=== PATIENT | male | born 1945 | race Caucasian/White ===

== ENCOUNTER → 2019-03-14 | Emergency (ER) | payer MEDICARE, OTHER ==
[~2019-03-14] VITALS: Ht 165.1 cm; Wt 92.1 kg
--- OUTSIDE RECORDS SUMMARY | 2019-03-14 13:48 | XMS REPORT | Referral Summary ---
Author Author [facility] Organization [facility] Address Unknown Phone Unavailable Care Team Providers Care Toaster Operator Name Role Phone Carolina Villalobos PCP Encounter VC Date(s): 05/22/18 - 05/22/18 [facility] [id number] [place] [id number] Encounter Diagnosis Atherosclerotic peripheral vascular disease (Discharge Diagnosis) - 05/22/18 Benign essential hypertension (disorder) (Discharge Diagnosis) - 05/22/18 Bradycardia (Discharge Diagnosis) - 05/22/18 Impaired fasting glucose (Discharge Diagnosis) - 05/22/18 Chronic kidney disease (CKD), stage II (mild) (Discharge Diagnosis) - 05/22/18 Elevated cholesterol with elevated triglycerides (Discharge Diagnosis) - 05/22/18 Discharge Disposition: 01-Home or Self Care Attending Physician: Clara Sotomayor Admitting Physician: Clara Sotomayor Vital Signs Most recent to 1 oldest [Reference Range]: Peripheral Pulse 59 bpm Rate [60-100 bpm] *LOW* (05/22/18 1:33 PM) Blood Pressure 140/70 mmHg [90-140/60-90 mmHg] (05/22/18 1:33 PM) SpO2 97 % (05/22/18 1:33 PM) Problem List Condition Effective Dates Status Health Status Informant Kidney 09/18/10 Active dysfunction(Confirme d) Allergic Active rhinitis(Confirmed) Unspecified Active arthropathy, involving lower leg(Confirmed) Benign essential Active hypertension (disorder)(Confirmed ) Bicipital tendonitis Active of left shoulder(Confirmed) Bradycardia(Confirme 09/18/09 Active d) Abnormal Active cardiovascular stress test(Confirmed) Carotid artery Active stenosis(Confirmed) 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/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) Cervical disc Active disease(Confirmed) Chronic kidney Active disease (CKD), stage II (mild)(Confirmed) Coronary Active arteriosclerosis (disorder)(Confirmed ) Coronary Active atherosclerosis of [place] coronary artery(Confirmed) Coronary artery Active disease(Confirmed) Degenerative disk 09/18/12 Active disease, C3-4 on down(Confirmed) Dermatitis(Confirmed Active ) ID(Confirmed) Active Foraminal narrowing 09/18/12 Active C4-5, C5-6, C6-7(Confirmed) 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) Disorder of kidney Active and/or ureter (disorder)(Confirmed ) Dyslipidemia(Confirm Active ed) Edema(Confirmed) Active Right hip Active pain(Confirmed) Hyperlipidemia(Confi Active rmed) Anterior 09/18/12 Active osteophytes(Confirme d) Hypotestosteronism(C Active onfirmed) Impaired fasting Active glucose(Confirmed) Impaired fasting Active glucose(Confirmed) Lumbar Active pain(Confirmed) Elevated cholesterol Active with elevated triglycerides(Confir med) Leg 09/18/08 Active numbness(Confirmed) Obesity Active (disorder)(Confirmed ) Osteoarthritis(Confi Active rmed) Atherosclerotic Active peripheral vascular disease(Confirmed) Peripheral vascular Active disease(Confirmed) Colonic Active polyps(Confirmed) Syncope(Confirmed) 09/18/10 Active Abnormal stress Active test(Confirmed) Tissue perfusion Active alteration(Confirmed )1 1Problem added automatically by system based on initiation of Tissue Perfusion Cerebral Plan of Care Allergies, Adverse Reactions, Alerts Substance Reaction Severity Status hydrochlorothiazide Active Medications amLODIPine 10 mg oral tablet See Instructions, TAKE 1 TABLET EVERY DAY, # 90 tabs, 0 Refill(s), Pharmacy: [facility], TAKE 1 TABLET EVERY DAY Start Date: 05/18/18 Status: Ordered aspirin 81 mg oral tablet 81 mg 1 tabs, Oral, Daily, # 30 tabs, 1 Refill(s), [facility]acy: [id number], 1 tabs Oral Daily Start Date: 03/27/18 Status: Ordered atorvastatin 40 mg oral tablet See Instructions, TAKE 1 TABLET EVERY DAY, # 90 tabs, eRx: [facility] Start Date: 03/16/18 Status: Ordered clopidogrel 75 mg oral tablet See Instructions, TAKE 1 TABLET EVERY DAY, # 90 tabs, 0 Refill(s), Pharmacy: [facility], TAKE 1 TABLET EVERY DAY Start Date: 05/18/18 Status: Ordered gabapentin 300 mg oral capsule See Instructions, TAKE 3 CAPSULES AT BEDTIME, # 270 caps, eRx: [facility], TAKE 3 CAPSULES AT BEDTIME Start Date: 03/16/18 Status: Ordered hydrALAZINE 25 mg oral tablet 25 mg 1 tabs, Oral, BID, # 60 tabs, 3 Refill(s), Pharmacy: [id number], 1 tabs Oral BID Start Date: 05/08/18 Status: Ordered Lasix 20 mg oral tablet 20 mg 1 tabs, Oral, Daily, # 30 tabs, 0 Refill(s), other reason (Rx) Start Date: 05/22/18 Status: Ordered lisinopril 40 mg oral tablet See Instructions, TAKE 1 TABLET EVERY DAY, hold until contacted by [facility] to resume, # 90 tabs, 0 Refill(s), other reason (Rx) Start Date: 05/08/18 Status: Ordered Nitrostat 0.4 mg sublingual tablet 0.4 mg 1 tabs, SubLingual, q5min, as needed for chest pain, # 90 tabs, 3 Refill( s), Pharmacy: [facility], 1 tabs SubLingual q5min,PRN:as need ed for chest pain Start Date: 03/27/18 Status: Ordered raNITIdine 150 mg oral tablet See Instructions, TAKE 2 TABLETS EVERY DAY, # 180 tabs, 1 Refill(s), eRx: [facility] Start Date: 03/30/18 Status: Ordered Tylenol Extra Strength 500 mg, Oral, q6hr, PRN, 0 Refill(s) Start Date: 02/18/14 Status: Ordered Tylenol PM Oral, Bedtime (once a day), 0 Refill(s) Start Date: 03/19/18 Status: Ordered Results Chemistry Most recent to 1 oldest [Reference Range]: Sodium Lvl [135-144 140 mEq/L mEq/L] (05/22/18 2:43 PM) Potassium Lvl 4.9 mEq/L [3.5-5.2 mEq/L] (05/22/18 2:43 PM) Chloride [99-111 106 mEq/L mEq/L] (05/22/18 2:43 PM) CO2 [23-31 mEq/L] 24 mEq/L (05/22/18 2:43 PM) AGAP [3-20 mEq/L] 10 mEq/L (05/22/18 2:43 PM) BUN [8-26 mg/dL] 19 mg/dL (05/22/18 2:43 PM) Glucose Lvl [70-99 90 mg/dL mg/dL] (05/22/18 2:43 PM) Creatinine Lvl 1.51 mg/dL [0.72-1.25 mg/dL] *HI* (05/22/18 2:43 PM) eGFR [>60 mL/min] 45 mL/min 1 *ABN* (05/22/18 2:43 PM) Calcium Lvl 10.4 mg/dL [8.4-10.2 mg/dL] *HI* (05/22/18 2:43 PM) 1Result Comment: Multiply eGFR results by 1.21 for race. Immunizations Given and Recorded Vaccine Date Status Refusal Reason pneumococcal 13-valent conjugate vaccine 08/01/17 Given influenza virus vaccine, live 07/15/13 Given influenza virus vaccine, live 07/03/12 Given influenza virus vaccine, live 06/24/11 Given influenza virus vaccine, live 06/10/10 Given influenza virus vaccine, live 06/05/09 Given pneumococcal 23-polyvalent vaccine 06/10/10 Recorded tetanus/diphth/pertuss (Tdap) adult/adol 12/29/09 Recorded Procedures Procedure Date Related Diagnosis Body Site Status Catheterization Heart Coronary Intervention 05/07/18 Completed (Right, Groin)1 Catheterization Left Heart with Coronary 05/07/18 Completed Angiography (Right, Groin)2 Stent placement3, 4 08/10/16 Completed Colonoscopy5 04/27/16 Completed Procedure with Anesthesia6 04/27/16 Completed Colonoscopy 02/21/13 Completed Hot Forceps Biopsy 02/21/13 Completed Colonoscopy with polypectomy 09/18/12 Completed R total knee arthroplasty 09/18/10 Completed PTCA w/stent of proximal LAD and diagonal LAD 09/18/09 Completed Left cardiac catheterization 09/18/06 Completed Arthrocentesis, right Completed kidney stents Completed stent in bilateral lower extremites Completed stomach stents Completed 1auto-populated from documented surgical case 2auto-populated from documented surgical case 3RIGHT SUPERFICIAL FEMORAL ARTERY DR RUFUS BENDER @ [facility] 4STAGE II CLAUDICATION IN THE RIGHT LEG 5auto-populated from documented surgical case 6auto-populated from documented surgical case Social History Social History Type Response Smoking Status Former smoker, quit more than 30 days ago; Type: Cigarettes; Date Last Use: quit 35 years ago; entered on: 05/07/18 Assessment and Plan Extracted from: Title: Office Visit Note Author: Clara Sotomayor Date: 05/22/18 1.Atherosclerotic peripheral vascular disease Patient has femoral stents. He is to continue on Plavix long-term. Ordered: Office Visit Level 4 Est 45121 2.Benign essential hypertension (disorder) Pressures are good today. We stressed the importance of having good blood pressure control for his kidneys. I have asked him to restart hisLasix due to his mild edema he has today but will check his BMPto make sure his electrolytes as well as kidney testing are normal,we'll consider restart of lisinopril ifBUN and creatinine are normal. His previous readings herein Julyat his physical were normal readings Ordered: Office Visit Level 4 Est 41371 3.Bradycardia Apparently he bradycardiaepisodes,and today he is 59 bpm. He was taken off of his beta angelica. We'll continue off the medication. He will discuss this with his citrus picker at his follow-up visit in one week. Ordered: Office Visit Level 4 Est 62613 4.Impaired fasting glucose Stressed the importance of the low carbohydrate diet. We reviewed his lasttests for both average blood sugar as well asfasting blood sugars. He will return in 1 month and have those labs rechecked again. He has made significant dietary changes. Ordered: Hemoglobin A1c Office Visit Level 4 Est 23682 CAD (coronary artery disease) We reviewed his past history. Stressed the importance of good cholesterol control as well as daily exercise. Ordered: Basic Metabolic Panel Comprehensive Metabolic Panel Lipid Panel Office Visit Level 4 Est 02339 Chronic kidney disease (CKD), stage II (mild) Reviewed his lab testing. At his physical2 months ago he had normal renal status. There was slight deterioration but he has had nephrology workup. We'll continue to monitor. Stressed the importance of healthy diet and adequate fluid intake. Elevated cholesterol with elevated triglycerides He has had better control of his cholesterol with the use of the Lipitor but his triglycerides have been elevated. He is wanting to restart his fish oil which Idid agree with. We'll check his labs in approximately 1 month and if the triglycerides are still elevated will consider adding his seen a fibroid back into his regimen. Ordered: Office Visit Level 4 Est 32961
--- OUTSIDE RECORDS SUMMARY | 2019-03-14 13:49 | XMS REPORT | Referral Summary ---
Author Author [facility] Organization [facility] Address Unknown Phone Unavailable Care Team Providers Care Pumper Head Name Role Phone Carolina Villalobos PCP Encounter VC Date(s): 04/05/18 - 04/05/18 [facility] [address], [place] [address] Encounter Diagnosis Abnormal stress test (Discharge Diagnosis) - 04/05/18 Discharge Disposition: 01-Home or Self Care Attending Physician: Madan Orona MD Admitting Physician: Madan Orona MD Vital Signs Most recent to 1 oldest [Reference Range]: Peripheral Pulse 56 bpm Rate [60-100 bpm] *LOW* (04/05/18 12:01 PM) Blood Pressure 134/60 mmHg [90-140/60-90 mmHg] (04/05/18 12:01 PM) Problem List Condition Effective Dates Status Health Status Informant Kidney 09/18/10 Active dysfunction(Confirme d) Allergic Active rhinitis(Confirmed) Unspecified Active arthropathy, involving lower leg(Confirmed) Benign essential Active hypertension (disorder)(Confirmed ) Bicipital tendonitis Active of left shoulder(Confirmed) Bradycardia(Confirme 09/18/09 Active d) Abnormal Active cardiovascular stress test(Confirmed) Carotid artery Active stenosis(Confirmed) 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/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) Cervical disc Active disease(Confirmed) Coronary Active arteriosclerosis (disorder)(Confirmed ) Coronary Active atherosclerosis of [place] coronary artery(Confirmed) Coronary artery Active disease(Confirmed) Degenerative disk 09/18/12 Active disease, C3-4 on down(Confirmed) Dermatitis(Confirmed Active ) MA(Confirmed) Active Foraminal narrowing 09/18/12 Active C4-5, C5-6, C6-7(Confirmed) 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) Disorder of kidney Active and/or ureter (disorder)(Confirmed ) Dyslipidemia(Confirm Active ed) Edema(Confirmed) Active Right hip Active pain(Confirmed) Hyperlipidemia(Confi Active rmed) Anterior 09/18/12 Active osteophytes(Confirme d) Hypotestosteronism(C Active onfirmed) Impaired fasting Active glucose(Confirmed) Impaired fasting Active glucose(Confirmed) Lumbar Active pain(Confirmed) Leg 09/18/08 Active numbness(Confirmed) Obesity Active (disorder)(Confirmed ) Osteoarthritis(Confi Active rmed) Atherosclerotic Active peripheral vascular disease(Confirmed) Peripheral vascular Active disease(Confirmed) Colonic Active polyps(Confirmed) Syncope(Confirmed) 09/18/10 Active Abnormal stress Active test(Confirmed) Allergies, Adverse Reactions, Alerts Substance Reaction Severity Status hydrochlorothiazide Active Medications amLODIPine 10 mg oral tablet See Instructions, TAKE 1 TABLET EVERY DAY, # 90 tabs, eRx: [facility], TAKE 1 TABLET EVERY DAY Start Date: 12/06/17 Status: Ordered aspirin 81 mg oral tablet 81 mg 1 tabs, Oral, Daily, # 30 tabs, 1 Refill(s), [id number], 1 tabs Oral Daily Start Date: 03/27/18 Status: Ordered atorvastatin 40 mg oral tablet See Instructions, TAKE 1 TABLET EVERY DAY, # 90 tabs, eRx: [facility] Start Date: 03/16/18 Status: Ordered clopidogrel 75 mg oral tablet See Instructions, TAKE 1 TABLET EVERY DAY, # 90 tabs, eRx: [facility], TAKE 1 TABLET EVERY DAY Start Date: 12/06/17 Status: Ordered gabapentin 300 mg oral capsule See Instructions, TAKE 3 CAPSULES AT BEDTIME, # 270 caps, eRx: [facility] Delivery, TAKE 3 CAPSULES AT BEDTIME Start Date: 03/16/18 Status: Ordered lisinopril 40 mg oral tablet See Instructions, TAKE 1 TABLET EVERY DAY, # 90 tabs, eRx: [facility] Start Date: 03/16/18 Status: Ordered Metoprolol Succinate ER 25 mg oral tablet, extended release See Instructions, TAKE 1 TABLET EVERY DAY, # 90 tabs, eRx: [facility], TAKE 1 TABLET EVERY DAY Start Date: 12/06/17 Status: Ordered Nitrostat 0.4 mg sublingual tablet 0.4 mg 1 tabs, SubLingual, q5min, as needed for chest pain, # 90 tabs, 3 Refill( s), Pharmacy: [facility], 1 tabs SubLingual q5min,PRN:as need ed for chest pain Start Date: 03/27/18 Status: Ordered raNITIdine 150 mg oral tablet See Instructions, TAKE 2 TABLETS EVERY DAY, # 180 tabs, 1 Refill(s), eRx: [facility] Start Date: 03/30/18 Status: Ordered Tylenol Extra Strength 500 mg, Oral, q6hr, PRN, 0 Refill(s) Start Date: 02/18/14 Status: Ordered Tylenol PM Oral, Bedtime (once a day), 0 Refill(s) Start Date: 03/19/18 Status: Ordered Results No data available for this section Immunizations Given and Recorded Vaccine Date Status Refusal Reason pneumococcal 13-valent conjugate vaccine 08/01/17 Given influenza virus vaccine, live 07/15/13 Given influenza virus vaccine, live 07/03/12 Given influenza virus vaccine, live 06/24/11 Given influenza virus vaccine, live 06/10/10 Given influenza virus vaccine, live 06/05/09 Given pneumococcal 23-polyvalent vaccine 06/10/10 Recorded tetanus/diphth/pertuss (Tdap) adult/adol 12/29/09 Recorded Procedures Procedure Date Related Diagnosis Body Site Status Stent placement1, 2 08/10/16 Completed Colonoscopy3 04/27/16 Completed Procedure with Anesthesia4 04/27/16 Completed Colonoscopy 02/21/13 Completed Hot Forceps Biopsy 02/21/13 Completed Colonoscopy with polypectomy 09/18/12 Completed R total knee arthroplasty 09/18/10 Completed PTCA w/stent of proximal LAD and diagonal LAD 09/18/09 Completed Left cardiac catheterization 09/18/06 Completed Arthrocentesis, right Completed kidney stents Completed stent in bilateral lower extremites Completed stomach stents Completed 1RIGHT SUPERFICIAL FEMORAL ARTERY DR RUFUS BENDER @ [place] [facility] 2STAGE II CLAUDICATION IN THE RIGHT LEG 3auto-populated from documented surgical case 4auto-populated from documented surgical case Social History Social History Type Response Smoking Status Former smoker; Type: Cigarettes1 entered on: 02/18/14 1stopped 25 years ago Assessment and Plan Extracted from: Title: Office Visit Note Author: Madan Orona MD Date: 04/05/18 1.Abnormal stress test The patient has risk factors for coronary artery disease and an abnormal stress test with a large area of reversible ischemia in the inferior wall distribution. Due to the patient's symptoms and high risk findings of the stress test we do recommend a cardiac catheterization to evaluate for underlying ischemic heart disease. All the risks and benefits of the procedure were discussed with the patient in details with the risks including but not limited to stroke, heart attack, kidney damage and IV contrast, bleeding, . The patient is agreeable to proceed with the procedure. Ordered: Office Visit Level 4 New [id number] Thank you for allowing us to be involved in the care of this patient.
--- OUTSIDE RECORDS SUMMARY | 2019-03-14 13:49 | XMS REPORT | Referral Summary ---
Author Author [facility] Organization [facility] Address Unknown Phone Unavailable Care Team Providers Care Gas Meter Mechanic Name Role Phone Carolina Villalobos PCP Encounter VC Date(s): 04/30/18 - 04/30/18 [facility] [address] [place] [place], [place] [address] Discharge Disposition: 01-Home or Self Care Attending Physician: Ivan Brennan MD Admitting Physician: Ivan Brennan MD Vital Signs No data available for this section Problem List Condition Effective Dates Status Health [...] arteriosclerosis (disorder)(Confirmed ) Coronary Active atherosclerosis of [place] coronary artery(Confirmed) Coronary artery Active disease(Confirmed) Degenerative disk 09/18/12 Active disease, C3-4 on down(Confirmed) Dermatitis(Confirmed Active ) PR(Confirmed) Active Foraminal narrowing 09/18/12 Active C4-5, C5-6, [...] TABLET EVERY DAY, # 90 tabs, eRx: [facility], TAKE 1 TABLET EVERY DAY Start Date: 12/06/17 Status: Ordered aspirin 81 mg oral tablet 81 mg 1 tabs, Oral, Daily, # 30 tabs, 1 Refill(s), Pharmacy: [id number], 1 tabs Oral Daily Start Date: 03/27/18 Status: Ordered atorvastatin 40 mg oral tablet See Instructions, TAKE 1 TABLET EVERY DAY, # 90 tabs, eRx: [facility] Start Date: 03/16/18 Status: Ordered clopidogrel 75 mg oral tablet See Instructions, TAKE 1 TABLET EVERY DAY, # 90 tabs, eRx: [facility], TAKE 1 TABLET EVERY DAY Start Date: 12/06/17 Status: Ordered gabapentin 300 mg oral capsule See Instructions, TAKE 3 CAPSULES AT BEDTIME, # 270 caps, [facility], TAKE 3 CAPSULES AT BEDTIME Start Date: 03/16/18 Status: Ordered lisinopril 40 mg oral tablet See Instructions, TAKE 1 TABLET EVERY DAY, # 90 tabs, eRx: [facility] Start Date: 03/16/18 Status: Ordered Metoprolol Succinate ER 25 mg oral tablet, extended release See Instructions, TAKE 1 TABLET EVERY DAY, # 90 tabs, eRx: [facility], TAKE 1 TABLET EVERY DAY Start Date: 12/06/17 Status: Ordered Nitrostat 0.4 mg sublingual tablet 0.4 mg 1 tabs, SubLingual, q5min, as needed for chest pain, # 90 tabs, 3 Refill( s), Pharmacy: [facility], 1 tabs SubLingual q5min,PRN:as need ed for chest pain Start Date: 03/27/18 Status: Ordered raNITIdine 150 mg oral tablet See Instructions, TAKE 2 TABLETS EVERY DAY, # 180 tabs, 1 Refill(s), eRx: [facility] Start Date: 03/30/18 Status: [...] SUPERFICIAL FEMORAL ARTERY DR RUFUS BENDER @ [place] [facility] 2STAGE II CLAUDICATION IN THE RIGHT LEG 3auto-populated from documented surgical case 4auto-populated from documented surgical case Social History Social History Type Response Smoking Status Former smoker; Type: Cigarettes1 entered on: 02/18/14 1stopped 25 years ago Assessment and Plan No data available for this section
--- OUTSIDE RECORDS SUMMARY | 2019-03-14 13:49 | XMS REPORT | Referral Summary ---
Author Author [facility] Organization [facility] Address Unknown Phone Unavailable Care Team Providers Care Master Carpenter Name Role Phone Carolina Villalobos PCP Encounter VC Date(s): 05/07/18 - 05/08/18 [facility] [address] [place] [address] Discharge Disposition: 01-Home or Self Care Attending Physician: Madan Orona MD Admitting Physician: Madan Orona MD Referring Physician: Madan Orona MD Vital Signs Most recent to 1 oldest [Reference Range]: Temperature Tympanic 36.3 degC [35.8-38.1 degC] (05/07/18 7:00 AM) Temperature Temporal 37 degC Artery [36.3-37.8 (05/08/18 8:00 AM) degC] Heart Rate Monitored 74 bpm [60-100 bpm] (05/08/18 11:00 AM) Respiratory Rate 30 br/min [14-20 br/min] *HI* (05/08/18 11:00 AM) Blood Pressure 156/88 mmHg [90-140/60-90 mmHg] *HI* (05/08/18 9:00 AM) Mean Arterial 117 mmHg Pressure, Cuff (05/08/18 9:00 AM) SpO2 96 % (05/08/18 10:00 AM) Remote Telemetry Ongoing (05/07/18 8:00 PM) Problem List Condition Effective Dates Status [...] arteriosclerosis (disorder)(Confirmed ) Coronary Active atherosclerosis of [place] coronary artery(Confirmed) Coronary artery Active disease(Confirmed) Degenerative disk 09/18/12 Active disease, C3-4 on down(Confirmed) Dermatitis(Confirmed Active ) [place](Confirmed) Active Foraminal narrowing 09/18/12 Active C4-5, C5-6, [...] TABLET EVERY DAY, # 90 tabs, eRx: [facility], TAKE 1 TABLET EVERY DAY Start Date: 12/06/17 Status: Ordered aspirin 81 mg oral tablet 81 mg 1 tabs, Oral, Daily, # 30 tabs, 1 Refill(s), Pharmacy: [id number], 1 tabs Oral Daily Start Date: 03/27/18 Status: Ordered atorvastatin 40 mg oral tablet See Instructions, TAKE 1 TABLET EVERY DAY, # 90 tabs, eRx: [facility] Start Date: 03/16/18 Status: Ordered clopidogrel 75 mg oral tablet See Instructions, TAKE 1 TABLET EVERY DAY, # 90 tabs, [facility]: [facility], TAKE 1 TABLET EVERY DAY Start Date: 12/06/17 Status: Ordered gabapentin 300 mg oral capsule See Instructions, TAKE 3 CAPSULES AT BEDTIME, # 270 caps, eRx: [facility] Delivery, TAKE 3 CAPSULES AT BEDTIME Start Date: 03/16/18 Status: Ordered hydrALAZINE 25 mg oral tablet 25 mg 1 tabs, Oral, BID, # 60 tabs, 3 Refill(s), Pharmacy: [id number], 1 tabs Oral BID Start Date: 05/08/18 Status: Ordered lisinopril 40 mg oral tablet See Instructions, TAKE 1 TABLET EVERY DAY, hold until contacted by cardiology of [facility] to resume, # 90 tabs, 0 Refill(s), other reason (Rx) Start Date: 05/08/18 Status: Ordered Nitrostat 0.4 mg sublingual tablet 0.4 mg 1 tabs, SubLingual, q5min, as needed for chest pain, # 90 tabs, 3 Refill( s), Pharmacy: [facility], 1 tabs SubLingual q5min,PRN:as need ed for chest pain Start Date: 03/27/18 Status: Ordered raNITIdine 150 mg oral tablet See Instructions, TAKE 2 TABLETS EVERY DAY, # 180 tabs, 1 Refill(s), eRx: [facility] Start Date: 03/30/18 Status: Ordered Tylenol Extra Strength 500 mg, Oral, q6hr, PRN, 0 Refill(s) Start Date: 02/18/14 Status: Ordered Tylenol PM Oral, Bedtime (once a day), 0 Refill(s) Start Date: 03/19/18 Status: Ordered Results Hematology Most recent to 1 oldest [Reference Range]: WBC [4.8-10.8 7.2 10*3/uL 10*3/uL] (05/08/18 3:57 AM) RBC [4.60-6.20] 4.56 *LOW* (05/08/18 3:57 AM) Hgb [14.0-18.0 14.7 gm/dL gm/dL] (05/08/18 3:57 AM) Hct [42.0-52.0 %] 42.4 % (05/08/18 3:57 AM) MCV [82.0-99.0 fL] 93.0 fL (05/08/18 3:57 AM) MCH [27.0-32.0 pg] 32.2 pg *HI* (05/08/18 3:57 AM) MCHC [32.0-36.0 34.7 gm/dL gm/dL] (05/08/18 3:57 AM) RDW [11.5-14.5 %] 13.5 % (05/08/18 3:57 AM) Platelet [150-400 187 10*3/uL 10*3/uL] (05/08/18 3:57 AM) MPV [9.4-12.3 fL] 10.9 fL (05/08/18 3:57 AM) Immature 0.3 % Granulocytes (05/08/18 3:57 AM) [0.0-1.0 %] Neutrophils [51-75 60 % %] (05/08/18 3:57 AM) Lymphocytes [20-46 20 % %] (05/08/18 3:57 AM) Monocytes [4-11 %] 12 % *HI* (05/08/18 3:57 AM) Eosinophils [0-4 %] 7 % *HI* (05/08/18 3:57 AM) Basophils [0-2 %] 0 % (05/08/18 3:57 AM) Neutro Absolute 4.34 [1.90-7.00] (05/08/18 3:57 AM) Lymph Absolute 1.41 [0.80-3.30] (05/08/18 3:57 AM) Bent Absolute 0.87 [0.30-1.00] (05/08/18 3:57 AM) Eos Absolute 0.53 [0.00-0.50] *HI* (05/08/18 3:57 AM) Baso Absolute 0.03 [0.00-0.20] (05/08/18 3:57 AM) Nucleated RBC 0.0 /100 WBC Automated [0 /100 (05/08/18 3:57 AM) WBC] Chemistry Most recent to 1 oldest [Reference Range]: Sodium Lvl [136-144 137 mEq/L mEq/L] (05/08/18 3:57 AM) Potassium Lvl 4.3 mEq/L 1 [3.6-5.1 mEq/L] (05/08/18 3:57 AM) Chloride [99-109 104 mEq/L mEq/L] (05/08/18 3:57 AM) CO2 [22-32 mEq/L] 26 mEq/L (05/08/18 3:57 AM) AGAP [3-20 mEq/L] 7 mEq/L (05/08/18 3:57 AM) BUN [4-20 mg/dL] 17 mg/dL (05/08/18 3:57 AM) Glucose Lvl [70-100 123 mg/dL mg/dL] *HI* (05/08/18 3:57 AM) Creatinine Lvl 1.45 mg/dL [0.64-1.27 mg/dL] *HI* (05/08/18 3:57 AM) eGFR [>60 mL/min] 48 mL/min 2 *ABN* (05/08/18 3:57 AM) Calcium Lvl 9.2 mg/dL [8.6-10.0 mg/dL] (05/08/18 3:57 AM) Magnesium Lvl 1.9 mg/dL [1.8-2.5 mg/dL] (05/07/18 12:12 PM) 1Result Comment: Hemolyzed specimen. The following tests may be affected: ALT, AST, Ammonia, Iron, Potassium, LDH, Amylase, CPK, and Total Bilirubin. 2Result Comment: Multiply eGFR results by 1.21 for [...] SUPERFICIAL FEMORAL ARTERY DR RUFUS BENDER @ [place] [facility] 4STAGE II CLAUDICATION IN THE RIGHT LEG 5auto-populated from documented surgical case 6auto-populated from documented surgical case Social History Social History Type Response Smoking Status Former smoker, quit more than 30 days ago; Type: Cigarettes; Date Last Use: quit 35 years ago; entered on: 05/07/18 Assessment and Plan No data available for this section
--- OUTSIDE RECORDS SUMMARY | 2019-03-14 13:49 | XMS REPORT | Referral Summary ---
Author Author [facility] Organization [facility] Address Unknown Phone Unavailable Care Team Providers Care Tobacco Grader Name Role Phone Carolina Villalobos PCP Encounter VC Date(s): 04/16/18 - 04/16/18 [facility] [address] [address] Encounter Diagnosis Atherosclerotic heart disease (Discharge Diagnosis) - 04/16/18 Elevated serum creatinine (Discharge Diagnosis) - 04/16/18 Discharge Disposition: 01-Home or Self Care Attending Physician: Carolina Villalobos MD Admitting Physician: Carolina Villalobos MD Vital Signs Most recent to 1 oldest [Reference Range]: Peripheral Pulse 52 bpm Rate [60-100 bpm] *LOW* (04/16/18 10:58 AM) Blood Pressure 152/74 mmHg [90-140/60-90 mmHg] *HI* (04/16/18 10:58 AM) SpO2 95 % (04/16/18 10:58 AM) Problem List Condition Effective Dates Status Health [...] arteriosclerosis (disorder)(Confirmed ) Coronary Active atherosclerosis of [place] coronary artery(Confirmed) Coronary artery Active disease(Confirmed) Degenerative disk 09/18/12 Active disease, C3-4 on down(Confirmed) Dermatitis(Confirmed Active ) [place](Confirmed) Active Foraminal narrowing 09/18/12 Active C4-5, C5-6, [...] TABLET EVERY DAY, # 90 tabs, eRx: [facility], TAKE 1 TABLET EVERY DAY Start Date: 12/06/17 Status: Ordered aspirin 81 mg oral tablet 81 mg 1 tabs, Oral, Daily, # 30 tabs, 1 Refill(s), Pharmacy: [id number], 1 tabs Oral Daily Start Date: 03/27/18 Status: Ordered atorvastatin 40 mg oral tablet See Instructions, TAKE 1 TABLET EVERY DAY, # 90 tabs, eRx: [facility] Start Date: 03/16/18 Status: Ordered clopidogrel 75 mg oral tablet See Instructions, TAKE 1 TABLET EVERY DAY, # 90 tabs, eRx: [facility], TAKE 1 TABLET EVERY DAY Start Date: 12/06/17 Status: Ordered gabapentin 300 mg oral capsule See Instructions, TAKE 3 CAPSULES AT BEDTIME, # 270 caps, eRx: [facility] M ail Delivery, TAKE 3 CAPSULES AT BEDTIME Start Date: 03/16/18 Status: Ordered lisinopril 40 mg oral tablet See Instructions, TAKE 1 TABLET EVERY DAY, # 90 tabs, eRx: [facility] Start Date: 03/16/18 Status: [...] # 90 tabs, 3 Refill( s), Pharmacy: [facility], 1 tabs SubLingual q5min,PRN:as need ed for chest pain Start Date: 03/27/18 Status: Ordered raNITIdine 150 mg oral tablet See Instructions, TAKE 2 TABLETS EVERY DAY, # 180 tabs, 1 Refill(s), [facility]: [facility] Start Date: 03/30/18 Status: Ordered Tylenol Extra Strength 500 mg, Oral, q6hr, PRN, 0 Refill(s) Start Date: 02/18/14 Status: Ordered Tylenol PM Oral, Bedtime (once a day), 0 Refill(s) Start Date: 03/19/18 Status: Ordered Results Chemistry Most recent to 1 oldest [Reference Range]: Sodium Lvl [135-144 142 mEq/L mEq/L] (04/16/18 11:36 AM) Potassium Lvl 4.7 mEq/L [3.5-5.2 mEq/L] (04/16/18 11:36 AM) Chloride [99-111 107 mEq/L mEq/L] (04/16/18 11:36 AM) CO2 [23-31 mEq/L] 30 mEq/L (04/16/18 11:36 AM) AGAP [3-20 mEq/L] 5 mEq/L (04/16/18 11:36 AM) BUN [8-26 mg/dL] 17 mg/dL (04/16/18 11:36 AM) Glucose Lvl [70-99 115 mg/dL mg/dL] *HI* (04/16/18 11:36 AM) Creatinine Lvl 1.48 mg/dL [0.72-1.25 mg/dL] *HI* (04/16/18 11:36 AM) eGFR [>60 mL/min] 47 mL/min 1 *ABN* (04/16/18 11:36 AM) Calcium Lvl 10.1 mg/dL [8.4-10.2 mg/dL] (04/16/18 11:36 AM) 1Result Comment: Multiply eGFR results by 1.21 [...] SUPERFICIAL FEMORAL ARTERY DR RUFUS BENDER @ [place] [facility] 2STAGE II CLAUDICATION IN THE RIGHT LEG 3auto-populated from documented surgical case 4auto-populated from documented surgical case Social History Social History Type Response Smoking Status Former smoker; Type: Cigarettes1 entered on: 02/18/14 1stopped 25 years ago Assessment and Plan Extracted from: Title: Office Visit Note Author: Carolina Villalobos MD Date: 04/16/18 Atherosclerotic heart disease The patient was scheduled for heart catheterbut the procedure was canceled due to an elevated creatinine. Recheck creatinine today Ordered: Basic Metabolic Panel Office Visit Level 3 Est 86128 Elevated serum creatinine If the value is elevated, refer to nephrology. Ordered: Basic Metabolic Panel Office Visit Level 3 Est 70164
--- OUTSIDE RECORDS SUMMARY | 2019-03-14 13:50 | XMS REPORT | Referral Summary ---
Author Author [facility] Organization [facility] Address Unknown Phone Unavailable Care Team Providers Care Maintenance Construction Helper Name Role Phone Carolina Villalobos PCP Encounter VC Date(s): 04/04/18 - 04/04/18 [facility] [address], [place] [address] Encounter Diagnosis Coronary arteriosclerosis (disorder) (Discharge Diagnosis) - 04/04/18 Syncope (Discharge Diagnosis) - 04/04/18 Abnormal cardiovascular stress test (Discharge Diagnosis) - 04/04/18 Peripheral vascular disease (Discharge Diagnosis) - 04/04/18 Benign essential hypertension (disorder) (Discharge Diagnosis) - 04/04/18 Carotid artery stenosis (Discharge Diagnosis) - 04/04/18 Discharge Disposition: 01-Home or Self Care Attending Physician: Ivan Brennan MD Admitting Physician: Ivan Brennan MD Vital Signs Most recent to 1 oldest [Reference Range]: Peripheral Pulse 66 bpm Rate [60-100 bpm] (04/04/18 9:06 AM) Blood Pressure 142/68 mmHg [90-140/60-90 mmHg] *HI* (04/04/18 9:06 AM) Problem List Condition Effective Dates Status [...] arteriosclerosis (disorder)(Confirmed ) Coronary Active atherosclerosis of [place] coronary artery(Confirmed) Coronary artery Active disease(Confirmed) Degenerative disk 09/18/12 Active disease, C3-4 on down(Confirmed) Dermatitis(Confirmed Active ) [place](Confirmed) Active Foraminal narrowing 09/18/12 Active C4-5, C5-6, [...] disease(Confirmed) Colonic Active polyps(Confirmed) Syncope(Confirmed) 09/18/10 Active Allergies, Adverse Reactions, Alerts Substance Reaction Severity Status hydrochlorothiazide Active Medications amLODIPine 10 mg oral tablet See Instructions, TAKE 1 TABLET EVERY DAY, # 90 tabs, eRx: [facility], TAKE 1 TABLET EVERY DAY Start Date: 12/06/17 Status: Ordered aspirin 81 mg oral tablet 81 mg 1 tabs, Oral, Daily, # 30 tabs, 1 Refill(s), Pharmacy: [id number], 1 tabs Oral Daily Start Date: 03/27/18 Status: Ordered atorvastatin 40 mg oral tablet See Instructions, TAKE 1 TABLET EVERY DAY, # 90 tabs, eRx: [facility] Start Date: 03/16/18 Status: Ordered clopidogrel 75 mg oral tablet See Instructions, TAKE 1 TABLET EVERY DAY, # 90 tabs, eRx: [facility], TAKE 1 TABLET EVERY DAY Start Date: 12/06/17 Status: Ordered gabapentin 300 mg oral capsule See Instructions, TAKE 3 CAPSULES AT BEDTIME, # 270 caps, eRx: [facility] ail Delivery, TAKE 3 CAPSULES AT BEDTIME Start Date: 03/16/18 Status: Ordered lisinopril 40 mg oral tablet See Instructions, TAKE 1 TABLET EVERY DAY, # 90 tabs, eRx: [facility] Start Date: 03/16/18 Status: Ordered Metoprolol Succinate ER 25 mg oral tablet, extended release See Instructions, TAKE 1 TABLET EVERY DAY, # 90 tabs, eRx: [facility], TAKE 1 TABLET EVERY DAY Start Date: 12/06/17 Status: Ordered Nitrostat 0.4 mg sublingual tablet 0.4 mg 1 tabs, SubLingual, q5min, as needed for chest pain, # 90 tabs, 3 Refill( s), Pharmacy: [facility], 1 tabs SubLingual q5min,PRN:as need ed for chest pain Start Date: 03/27/18 Status: Ordered raNITIdine 150 mg oral tablet See Instructions, TAKE 2 TABLETS EVERY DAY, # 180 tabs, 1 Refill(s), eRx: [facility] Start Date: 03/30/18 Status: [...] SUPERFICIAL FEMORAL ARTERY DR RUFUS BENDER @ [place] [facility] 2STAGE II CLAUDICATION IN THE RIGHT LEG 3auto-populated from documented surgical case 4auto-populated from documented surgical case Social History Social History Type Response Smoking Status Former smoker; Type: Cigarettes1 entered on: 02/18/14 1stopped 25 years ago Assessment and Plan Extracted from: Title: Office Visit Note Author: Ivan Brennan MD Date: 04/04/18 1.Abnormal cardiovascular stress test 2.Coronary arteriosclerosis (disorder) 3.Syncope 4.Benign essential hypertension (disorder) 5.Peripheral vascular disease 6.Carotid artery stenosis Discussed the results of the stress test. high risk findings, he has exertional symptoms consistent with angina despite two anti anginal therapy. I have recommended LHC. I discussed in details the risks, benefits and indications of LHC. Patient is aware that there is 1-2 % risk of complications including but not limited to , CVA, DC, vascular injury, Allergic reaction, CHLOE, need for emergent CABG. continue ASA, plavix, PRN nitro, Metoprolol and Norvasc. Patient will follow with me as previously scheduled, sooner if needed. Thank you Dr. Villalobosfor allowing me the privilege to participate in the care of your patient. Please do not hesitate to contact me should you have any questions in this regard.
--- OUTSIDE RECORDS SUMMARY | 2019-03-14 13:50 | XMS REPORT | Referral Summary ---
Author Author [facility] Organization [facility] Address Unknown Phone Unavailable Care Team Providers Care Pizza Delivery Driver Name Role Phone Carolina Villalobos PCP Encounter VC Date(s): 04/03/18 - 04/03/18 [facility] [address], [place] [address] Discharge Disposition: 01-Home or Self Care Attending Physician: Ivan Brennan MD Admitting Physician: Ivan Brennan MD Referring Physician: Ivan Brennan MD Vital Signs No data available for this section Problem List Condition Effective Dates Status Health Status Informant Kidney 09/18/10 Active dysfunction(Confirme d) Allergic Active rhinitis(Confirmed) Unspecified Active arthropathy, involving lower leg(Confirmed) Benign essential Active hypertension (disorder)(Confirmed ) Bicipital tendonitis Active of left shoulder(Confirmed) Bradycardia(Confirme 09/18/09 Active d) Carotid artery Active stenosis(Confirmed) 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/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) Cervical disc Active disease(Confirmed) Coronary Active arteriosclerosis (disorder)(Confirmed ) Coronary Active atherosclerosis of [place] coronary artery(Confirmed) Coronary artery Active disease(Confirmed) Degenerative [...] TABLET EVERY DAY, # 90 tabs, eRx: [facility], TAKE 1 TABLET EVERY DAY Start Date: 12/06/17 Status: Ordered aspirin 81 mg oral tablet 81 mg 1 tabs, Oral, Daily, # 30 tabs, 1 Refill(s), Pharmacy: [facility] [id number], 1 tabs Oral Daily Start Date: 03/27/18 Status: Ordered atorvastatin 40 mg oral tablet See Instructions, TAKE 1 TABLET EVERY DAY, # 90 tabs, eRx: [facility] Start Date: 03/16/18 Status: Ordered clopidogrel 75 mg oral tablet See Instructions, TAKE 1 TABLET EVERY DAY, # 90 tabs, eRx: [facility], TAKE 1 TABLET EVERY DAY Start Date: 12/06/17 Status: Ordered gabapentin 300 mg oral capsule See Instructions, TAKE 3 CAPSULES AT BEDTIME, # 270 caps, eRx: [facility] M ail Delivery, TAKE 3 CAPSULES AT BEDTIME Start Date: 03/16/18 Status: Ordered lisinopril 40 mg oral tablet See Instructions, TAKE 1 TABLET EVERY DAY, # 90 tabs, eRx: [facility] Start Date: 03/16/18 Status: Ordered Metoprolol Succinate ER 25 mg oral tablet, extended release See Instructions, TAKE 1 TABLET EVERY DAY, # 90 tabs, eRx: [facility], TAKE 1 TABLET EVERY DAY Start Date: 12/06/17 Status: Ordered Nitrostat 0.4 mg sublingual tablet 0.4 mg 1 tabs, SubLingual, q5min, as needed for chest pain, # 90 tabs, 3 Refill( s), Pharmacy: [facility], 1 tabs SubLingual q5min,PRN:as [...] SUPERFICIAL FEMORAL ARTERY DR RUFUS BENDER @ [place] [facility] 2STAGE II CLAUDICATION IN THE RIGHT LEG 3auto-populated from documented surgical case 4auto-populated from documented surgical case Social History Social History Type Response Smoking Status Former smoker; Type: Cigarettes1 entered on: 02/18/14 1stopped 25 years ago Assessment and Plan No data available for this section
--- OUTSIDE RECORDS SUMMARY | 2019-03-14 13:50 | XMS REPORT | Referral Summary ---
Author Author [facility] Organization [facility] Address Unknown Phone Unavailable Care Team Providers Care Cyber Security Analyst Name Role Phone Carolina Villalobos PCP Encounter VC Date(s): 03/27/18 - 03/27/18 [facility] [address], [place] [address] Encounter Diagnosis Atherosclerotic peripheral vascular disease (Discharge Diagnosis) - 03/25/18 Benign essential hypertension (disorder) (Discharge Diagnosis) - 03/25/18 Syncope (Discharge Diagnosis) - 03/25/18 Carotid artery stenosis (Discharge Diagnosis) - 03/27/18 Coronary arteriosclerosis (disorder) (Discharge Diagnosis) - 03/25/18 Discharge Disposition: 01-Home or Self Care Attending Physician: Ivan Brennan MD Admitting Physician: Ivan Brennan MD Referring Physician: Clara Sotomayor Vital Signs Most recent to 1 oldest [Reference Range]: Peripheral Pulse 65 bpm Rate [60-100 bpm] (03/27/18 11:18 AM) Blood Pressure 130/68 mmHg [90-140/60-90 mmHg] (03/27/18 11:18 AM) Problem List Condition Effective Dates Status [...] arteriosclerosis (disorder)(Confirmed ) Coronary Active atherosclerosis of [place] coronary artery(Confirmed) Coronary artery Active disease(Confirmed) Degenerative disk 09/18/12 Active disease, C3-4 on down(Confirmed) Dermatitis(Confirmed Active ) [place](Confirmed) Active Foraminal narrowing 09/18/12 Active C4-5, C5-6, [...] TABLET EVERY DAY, # 90 tabs, eRx: [facility], TAKE 1 TABLET EVERY DAY Start Date: 12/06/17 Status: Ordered aspirin 81 mg oral tablet 81 mg 1 tabs, Oral, Daily, # 30 tabs, 1 Refill(s), Pharmacy: [id number], 1 tabs Oral Daily Start Date: 03/27/18 Status: Ordered atorvastatin 40 mg oral tablet See Instructions, TAKE 1 TABLET EVERY DAY, # 90 tabs, eRx: [facility] Start Date: 03/16/18 Status: Ordered clopidogrel 75 mg oral tablet See Instructions, TAKE 1 TABLET EVERY DAY, # 90 tabs, eRx: [facility], TAKE 1 TABLET EVERY DAY Start Date: 12/06/17 Status: Ordered gabapentin 300 mg oral capsule See Instructions, TAKE 3 CAPSULES AT BEDTIME, # 270 caps, eRx: [facility] M ail Delivery, TAKE 3 CAPSULES AT BEDTIME Start Date: 03/16/18 Status: Ordered lisinopril 40 mg oral tablet See Instructions, TAKE 1 TABLET EVERY DAY, # 90 tabs, eRx: [facility] Start Date: 03/16/18 Status: [...] # 90 tabs, 3 Refill( s), Pharmacy: [facility], 1 tabs SubLingual q5min,PRN:as need ed for chest pain Start Date: 03/27/18 Status: Ordered raNITIdine 150 mg oral tablet See Instructions, TAKE 2 TABLETS EVERY DAY, # 180 tabs, eRx: [facility], TAKE 2 TABLETS EVERY DAY Start Date: 12/06/17 Status: Ordered Tylenol Extra Strength 500 mg, [...] SUPERFICIAL FEMORAL ARTERY DR RUFUS BENDER @ [place] [facility] 2STAGE II CLAUDICATION IN THE RIGHT LEG 3auto-populated from documented surgical case 4auto-populated from documented surgical case Social History Social History Type Response Smoking Status Former smoker; Type: Cigarettes1 entered on: 02/18/14 1stopped 25 years ago Assessment and Plan Extracted from: Title: Office Visit Note Author: Ivan Brennan MD Date: 03/27/18 1.Coronary arteriosclerosis (disorder) Details as above. EKG was done today and I personally reviewed tracing. NSR, RBBB, no ischemia, no infarct, continue Plavix, BB and CCB. recommended ASA 81 mg po qday, continue statin, his chest pain is concerning for stable angina ( symptoms ongoing for more than 2 weeks and not resting symptoms ), will refer for ischemic evaluation, due to h/o CABG and abnormal EKG, will refer for TTM. will consider echo next visit. 2.Carotid artery stenosis continue plavix, statin, will need to have follow up carotid US in the future. 3.Atherosclerotic peripheral vascular disease continue plavix, statin 4.Syncope no recent episodes 5.Benign essential hypertension (disorder) controlled Patient will follow with me in 2months, sooner if needed. Thank you Dr. Villalobosfor allowing me the privilege to participate in the care of your patient. Please do not hesitate to contact me should you have any questions in this regard.
--- OUTSIDE RECORDS SUMMARY | 2019-03-14 13:50 | XMS REPORT | Referral Summary ---
Author Author [facility] Organization [facility] Address Unknown Phone Unavailable Care Team Providers Care Pot Liner Name Role Phone Carolina Villalobos PCP Encounter [facility] Date(s): 04/03/18 - 04/03/18 [facility] [address], [place] [address] Discharge Disposition: 01-Home or Self Care Attending Physician: Ivan Brennan MD Admitting Physician: Ivan Brennan MD Referring Physician: Ivan Brennan MD Vital Signs Most recent to 1 oldest [Reference Range]: Peripheral Pulse 51 bpm Rate [60-100 bpm] *LOW* (04/03/18 9:32 AM) Blood Pressure 155/76 mmHg [90-140/60-90 mmHg] *HI* (04/03/18 9:32 AM) Problem List Condition Effective Dates Status [...] arteriosclerosis (disorder)(Confirmed ) Coronary Active atherosclerosis of [place] coronary artery(Confirmed) Coronary artery Active disease(Confirmed) Degenerative disk 09/18/12 Active disease, C3-4 on down(Confirmed) Dermatitis(Confirmed Active ) [place](Confirmed) Active Foraminal narrowing 09/18/12 Active C4-5, C5-6, [...] TABLET EVERY DAY, # 90 tabs, eRx: [facility], TAKE 1 TABLET EVERY DAY Start Date: 12/06/17 Status: Ordered aspirin 81 mg oral tablet 81 mg 1 tabs, Oral, Daily, # 30 tabs, 1 Refill(s), Pharmacy: [id number], 1 tabs Oral Daily Start Date: 03/27/18 Status: Ordered atorvastatin 40 mg oral tablet See Instructions, TAKE 1 TABLET EVERY DAY, # 90 tabs, eRx: [facility] Start Date: 03/16/18 Status: Ordered clopidogrel 75 mg oral tablet See Instructions, TAKE 1 TABLET EVERY DAY, # 90 tabs, eRx: [facility] Mail Delivery, TAKE 1 TABLET EVERY DAY Start Date: 12/06/17 Status: Ordered gabapentin 300 mg oral capsule See Instructions, TAKE 3 CAPSULES AT BEDTIME, # 270 caps, eRx: [facility] M ail Delivery, TAKE 3 CAPSULES AT BEDTIME Start Date: 03/16/18 Status: Ordered lisinopril 40 mg oral tablet See Instructions, TAKE 1 TABLET EVERY DAY, # 90 tabs, eRx: [facility] Start Date: 03/16/18 Status: Ordered Metoprolol Succinate ER 25 mg oral tablet, extended release See Instructions, TAKE 1 TABLET EVERY DAY, # 90 tabs, eRx: [facility] Delivery, TAKE 1 TABLET EVERY DAY Start Date: 12/06/17 Status: Ordered Nitrostat 0.4 mg sublingual tablet 0.4 mg 1 tabs, SubLingual, q5min, as needed for chest pain, # 90 tabs, 3 Refill( s), Pharmacy: [facility] Mail Delivery, 1 tabs SubLingual q5min,PRN:as need ed for chest pain Start Date: 03/27/18 Status: Ordered raNITIdine 150 mg oral tablet See Instructions, TAKE 2 TABLETS EVERY DAY, # 180 tabs, 1 Refill(s), eRx: [facility] Start Date: 03/30/18 Status: [...] SUPERFICIAL FEMORAL ARTERY DR RUFUS BENDER @ [facility] 2STAGE II CLAUDICATION IN THE RIGHT LEG 3auto-populated from documented surgical case 4auto-populated from documented surgical case Social History Social History Type Response Smoking Status Former smoker; Type: Cigarettes1 entered on: 02/18/14 1stopped 25 years ago Assessment and Plan No data available for this section
--- OUTSIDE RECORDS SUMMARY | 2019-03-14 13:51 | XMS REPORT | Referral Summary ---
Author Author [facility] Organization [facility] Address Unknown Phone Unavailable Care Team Providers Care Transliterator Name Role Phone Carolina Villalobos PCP Encounter [facility] Date(s): 03/07/17 - 03/07/17 [facility] [id number] [address] Discharge Diagnosis: Edema Discharge Diagnosis: Bradycardia Discharge Diagnosis: Obesity (disorder) Discharge Disposition: 01-Home or Self Care Attending Physician: Clara Sotomayor Admitting Physician: Clara Sotomayor Vital Signs Most recent to 1 oldest [Reference Range]: Peripheral Pulse 50 bpm Rate [60-100 bpm] *LOW* (03/07/17 10:29 AM) Blood Pressure 130/70 mmHg [90-140/60-90 mmHg] (03/07/17 10:29 AM) SpO2 96 % (03/07/17 10:29 AM) Problem List Condition Effective Dates Status Health Status Informant Kidney 09/18/10 Active dysfunction(Confirme d) Allergic Active rhinitis(Confirmed) Unspecified Active arthropathy, involving lower leg(Confirmed) Benign essential Active hypertension (disorder)(Confirmed ) Bicipital tendonitis Active of left shoulder(Confirmed) Bradycardia(Confirme 09/18/09 Active d) 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/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) Cervical disc Active disease(Confirmed) Coronary Active arteriosclerosis (disorder)(Confirmed ) Coronary Active atherosclerosis of [place] coronary artery(Confirmed) Coronary artery Active disease(Confirmed) Degenerative disk 09/18/12 Active disease, C3-4 on down(Confirmed) Dermatitis(Confirmed Active ) [place](Confirmed) Active Foraminal narrowing 09/18/12 Active C4-5, C5-6, C6-7(Confirmed) 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) Disorder of kidney Active and/or ureter (disorder)(Confirmed ) Dyslipidemia(Confirm Active ed) Edema(Confirmed) Active Right hip Active pain(Confirmed) Hyperlipidemia(Confi Active rmed) Anterior 09/18/12 Active osteophytes(Confirme d) Impaired fasting Active glucose(Confirmed) Lumbar Active pain(Confirmed) Leg 09/18/08 Active numbness(Confirmed) Obesity Active (disorder)(Confirmed ) Osteoarthritis(Confi Active rmed) Atherosclerotic Active peripheral vascular disease(Confirmed) Peripheral vascular Active disease(Confirmed) Colonic Active polyps(Confirmed) Syncope(Confirmed) 09/18/10 Active Allergies, Adverse Reactions, Alerts Substance Reaction Severity Status hydrochlorothiazide Active Medications amLODIPine 10 mg oral tablet See Instructions, TAKE 0.5 TABLET EVERY DAY, # 90 tabs, eRx: [facility] Start Date: 01/23/17 Status: Ordered atorvastatin 40 mg oral tablet See Instructions, TAKE 1 TABLET EVERY DAY, # 90 tabs, eRx: [facility], TAKE 1 TABLET EVERY DAY Start Date: 01/23/17 Status: Ordered clopidogrel 75 mg oral tablet See Instructions, TAKE 1 TABLET EVERY DAY, # 90 tabs, eRx: [facility], TAKE 1 TABLET EVERY DAY Start Date: 01/23/17 Status: Ordered gabapentin 300 mg oral capsule See Instructions, TAKE 3 CAPSULES AT BEDTIME, # 180 caps, eRx: [facility] M ail Delivery, TAKE 3 CAPSULES AT BEDTIME Start Date: 01/23/17 Status: Ordered Lasix 20 mg oral tablet 20 mg 1 tabs, Oral, Daily, # 90 tabs, 0 Refill(s), Pharmacy: [facility], 1 tabs Oral Daily Start Date: 03/07/17 Status: Ordered lisinopril 40 mg oral tablet See Instructions, TAKE 1 TABLET EVERY DAY, # 90 tabs, eRx: [facility], TAKE 1 TABLET EVERY DAY Start Date: 01/23/17 Status: Ordered metoprolol succinate 25 mg oral tablet, extended release 12.5 mg 0.5 tabs, Oral, Daily, # 90 tabs, 1 Refill(s), Pharmacy: [facility] Start Date: 02/14/17 Status: Ordered raNITIdine 150 mg oral tablet 150 mg 1 tabs, Oral, BID, # 180 tabs, 0 Refill(s), Pharmacy: [facility] [place], pt needs to keep appt on 02/28/17 for future refills, 1 tabs Oral BID Start Date: 12/14/16 Status: Ordered Tylenol Extra Strength 500 mg, Oral, q6hr, PRN, 0 Refill(s) Start Date: 02/18/14 Status: Ordered Tylenol PM mL, Oral, Bedtime (once a day), 0 Refill(s) Start Date: 02/14/17 Status: Ordered Results Hematology Most recent to 1 oldest [Reference Range]: WBC [4.8-10.8 5.6 10*3/uL 10*3/uL] (03/07/17 11:19 AM) RBC [4.60-6.20] 5.24 (03/07/17 11:19 AM) Hgb [14.0-18.0 16.0 gm/dL gm/dL] (03/07/17 11 AM) Hct [42.0-52.0 %] 48.4 % (03/07/17 11:19 AM) MCV [82.0-99.0 fL] 92.4 fL (03/07/17 11:19 AM) MCH [27.0-32.0 pg] 30.5 pg (03/07/17 11:19 AM) MCHC [32.0-36.0 33.1 gm/dL gm/dL] (03/07/17 11:19 AM) RDW [11.5-14.5 %] 13.6 % (03/07/17 11:19 AM) Platelet [150-400 231 10*3/uL 10*3/uL] (03/07/17 11:19 AM) MPV [8.8-14.8 fL] 11.1 fL (03/07/17 11:19 AM) Immature 0.2 % Granulocytes (03/07/17 11:19 AM) [0.0-1.0 %] Neutrophils [51-75 45 % %] *LOW* (03/07/17 11:19 AM) Lymphocytes [20-46 30 % %] (03/07/17 11:19 AM) Monocytes [4-11 %] 15 % *HI* (03/07/17 AM) Eosinophils [0-4 %] 8 % *HI* (03/07/17 AM) Basophils [0-2 %] 1 % (03/07/17 AM) Neutro Absolute 2.55 [1.90-7.00] (03/07/17 AM) Lymph Absolute 1.71 [0.80-3.30] (03/07/17 AM) [place] Absolute 0.82 [0.30-1.00] (03/07/17 AM) Eos Absolute 0.47 [0.00-0.50] (03/07/17 AM) Baso Absolute 0.06 [0.00-0.20] (03/07/17 AM) Chemistry Most recent to 1 oldest [Reference Range]: Sodium Lvl [135-144 140 mEq/L mEq/L] (03/07/17 AM) Potassium Lvl 4.9 mEq/L [3.5-5.2 mEq/L] (03/07/17 AM) Chloride [99-111 108 mEq/L mEq/L] (03/07/17 AM) CO2 [23-31 mEq/L] 26 mEq/L (03/07/17 AM) AGAP [3-20 mEq/L] 6 mEq/L (03/07/17 AM) BUN [8-26 mg/dL] 19 mg/dL (03/07/17 AM) Glucose Lvl [70-99 104 mg/dL mg/dL] *HI* (03/07/17 AM) Creatinine Lvl 1.38 mg/dL [0.72-1.25 mg/dL] *HI* (03/07/17 AM) eGFR [>60 mL/min] 51 mL/min 1 *ABN* (03/07/17 AM) Calcium Lvl 9.8 mg/dL [8.4-10.2 mg/dL] (03/07/17 AM) Albumin Lvl [3.4-4.8 4.5 gm/dL gm/dL] (03/07/17 11 AM) Total Protein 7.0 gm/dL [6.0-7.6 gm/dL] (03/07/17 AM) Globulin [1.8-4.0 2.5 gm/dL gm/dL] (03/07/17 AM) ALT [0-55 U/L] 30 U/L (03/07/17 AM) AST [5-34 U/L] 22 U/L (03/07/17 AM) Alk Phos [40-150 63 U/L U/L] (03/07/17 AM) Bili Total [0.2-1.2 0.7 mg/dL mg/dL] (03/07/17 AM) Chol [0-199 mg/dL] 178 mg/dL (03/07/17 AM) Trig [0-149 mg/dL] 444 mg/dL 2 *HI* (03/07/17 AM) HDL [40-84 mg/dL] 24 mg/dL *LOW* (03/07/17 AM) LDL [0-130] INVALID (03/07/17 AM) VLDL Cholesterol INVALID [0-28] (03/07/17 AM) Cardiac Risk 7.4 [0.0-5.7] *HI* (03/07/17: AM) TSH [0.35-4.94] 1.49 (03/07/17 AM) Hgb A1c [4.1-5.6 %] 5.9 % *HI* (03/07/17 AM) eAvg Glucose 122.6 mg/dL (03/07/17 11:19 AM) 1Result Comment: Multiply eGFR results by 1.21 for race. 2Result Comment: LDL and VLDL are invalid with Triglyceride greater than 400. Immunizations Given and Recorded Vaccine Date Status Refusal Reason tetanus/diphth/pertuss (Tdap) adult/adol 12/29/09 Recorded influenza virus vaccine, live 07/15/13 Given influenza virus vaccine, live 07/03/12 Given influenza virus vaccine, live 06/24/11 Given influenza virus vaccine, live 06/10/10 Given influenza virus vaccine, live 06/05/09 Given pneumococcal 23-polyvalent vaccine 06/10/10 Recorded Procedures Procedure Date Related Diagnosis Body Site Stent placement1, 2 08/10/16 Colonoscopy3 04/27/16 Procedure with Anesthesia4 04/27/16 Colonoscopy 02/21/13 Hot Forceps Biopsy 02/21/13 Colonoscopy with polypectomy 09/18/12 R total knee arthroplasty 09/18/10 PTCA w/stent of proximal LAD and diagonal LAD 09/18/09 Left cardiac catheterization 09/18/06 Arthrocentesis, right kidney stents stent in bilateral lower extremites stomach stents 1RIGHT SUPERFICIAL FEMORAL ARTERY DR RUFUS BENDER @ [facility] 2STAGE II CLAUDICATION IN THE RIGHT LEG 3auto-populated from documented surgical case 4auto-populated from documented surgical case Social History Social History Type Response Smoking Status Former smoker; Type: Cigarettes1 1stopped 25 years ago Assessment and Plan Extracted from: Title: Office Visit Note Author: Clara Sotomayor Date: 03/07/17 Assessment/Plan 1.Obesity (disorder) Patient was given information concerning following a lowercaloric diet. Several handouts were given. Reviewed his need to stay on lower calorie diet to help with weight loss. Bradycardia Patient's pulse was back into the50s. We'll have him reduce the metoprolol to half tablet a day. Also reduce amlodipine to half tablet a day. Edema Start on Lasix. He has an allergy listed to hydrochlorothiazide but is uncertain of whatside effect he had to the medicine. Encouraged him to have potassium rich foods when he does use the Lasix. We obtained electrolytesand lab work today. Ordered: Office Visit Level 4 Est 77788 Fatigue Uncertain of the cause of his fatigue. Could be due to low pulse and changes have been made in his medicine reduction of meddoses that could contribute to low pulse.We'll obtain labs. We'll test testosterone levels. Make recommendations depend upon the results. Ordered: Office Visit Level 4 Est 27668 Testosterone, Total, and Free-Botello TSH 3rd Generation Hyperlipidemia We'll recheck his lipid panel. He has known coronary artery disease. He has been stable on the atorvastatin for some time. Ordered: Comprehensive Metabolic Panel Lipid Panel Office Visit Level 4 Est 35515 Hypertension Pressures are good today. We're making a few changes to his medications but likely hissystolic and diastolics will remain an acceptable levels with these changes. Ordered: CBC w/ Differential Comprehensive Metabolic Panel Office Visit Level 4 Est 74645 Impaired fasting glucose We'll recheck a fasting blood sugar as well as an average blood sugar. Make recommendations on any changes. Did give him handouts today on a lower carbohydrate dietwith appropriate calorie restrictions to help with weight loss. Ordered: Hemoglobin A1c Office Visit Level 4 Est 88052
--- OUTSIDE RECORDS SUMMARY | 2019-03-14 13:51 | XMS REPORT | Referral Summary ---
Author Author [facility] Organization [facility] Address Unknown Phone Unavailable Care Team Providers Care Roving Weight Gauger Name Role Phone Carolina Villalobos PCP No PCP, [facility] PCP Encounter [facility] [phone] Date(s): 01/12/18 - 01/12/18 [facility] [id number] [address] Encounter Diagnosis Acute back pain (Discharge Diagnosis) - 01/12/18 Discharge Disposition: 01-Home or Self Care Attending Physician: Carolina Villalobos MD Admitting Physician: Carolina Villalobos MD Vital Signs Most recent to 1 oldest [Reference Range]: Peripheral Pulse 58 bpm Rate [60-100 bpm] *LOW* (01/12/18 3:34 PM) Blood Pressure 150/74 mmHg [90-140/60-90 mmHg] *HI* (01/12/18 3:34 PM) SpO2 95 % (01/12/18 3:34 PM) Problem List Condition Effective Dates Status Health Status Informant Kidney 09/18/10 Active dysfunction(Confirme d) Allergic Active rhinitis(Confirmed) Unspecified Active arthropathy, involving lower leg(Confirmed) Benign essential Active hypertension (disorder)(Confirmed ) Bicipital tendonitis Active of left shoulder(Confirmed) Bradycardia(Confirme 09/18/09 Active d) 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/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) Cervical disc Active disease(Confirmed) Coronary Active arteriosclerosis (disorder)(Confirmed ) Coronary Active atherosclerosis of [place] coronary artery(Confirmed) Coronary artery Active disease(Confirmed) Degenerative disk 09/18/12 Active disease, C3-4 on down(Confirmed) Dermatitis(Confirmed Active ) [place](Confirmed) Active Foraminal narrowing 09/18/12 Active C4-5, C5-6, [...] TABLET EVERY DAY, # 90 tabs, eRx: [facility], TAKE 1 TABLET EVERY DAY Start Date: 12/06/17 Status: Ordered atorvastatin 40 mg oral tablet See Instructions, TAKE 1 TABLET EVERY DAY, # 90 tabs, 1 Refill(s), eRx: [facility], TAKE 1 TABLET EVERY DAY Start Date: 08/30/17 Status: Ordered clopidogrel 75 mg oral tablet See Instructions, TAKE 1 TABLET EVERY DAY, # 90 tabs, eRx: [facility], TAKE 1 TABLET EVERY DAY Start Date: 12/06/17 Status: Ordered cyclobenzaprine 10 mg oral tablet 10 mg 1 tabs, Oral, TID, as needed for spasm, # 30 tabs, 0 Refill(s), Pharmacy: [facility] [id number], 1 tabs Oral TID,PRN:as needed for spasm Start Date: 01/12/18 Stop Date: 01/13/18 Status: Ordered furosemide 20 mg oral tablet See Instructions, TAKE 1 TABLET EVERY DAY, # 90 tabs, eRx: [facility], TAKE 1 TABLET EVERY DAY Start Date: 12/06/17 Status: Ordered gabapentin 300 mg oral capsule See Instructions, TAKE 3 CAPSULES AT BEDTIME, # 270 caps, [facility], TAKE 3 CAPSULES AT BEDTIME Start Date: 12/06/17 Status: Ordered lisinopril 40 mg oral tablet See Instructions, TAKE 1 TABLET EVERY DAY, # 90 tabs, 1 Refill(s), eRx: [facility], TAKE 1 TABLET EVERY DAY Start Date: 09/04/17 Status: Ordered Metoprolol Succinate ER 25 mg oral tablet, extended release See Instructions, TAKE 1 TABLET EVERY DAY, # 90 tabs, eRx: [facility], TAKE 1 TABLET EVERY DAY Start Date: 12/06/17 Status: Ordered raNITIdine 150 mg oral tablet See Instructions, TAKE 2 TABLETS EVERY DAY, # 180 tabs, eRx: [facility], TAKE 2 TABLETS EVERY DAY Start Date: 12/06/17 Status: Ordered Tylenol Extra Strength 500 mg, Oral, q6hr, PRN, 0 Refill(s) Start Date: 02/18/14 Status: Ordered Tylenol PM mL, Oral, Bedtime (once a day), 0 Refill(s) Start Date: 02/14/17 Status: Ordered Results No data available for [...] Visit Note Author: Carolina Villalobos MD Date: 01/12/18 Acute back pain Suspect muscular. The patient was given a prescription for cyclobenzaprine to use as needed. He was cautioned about possible sedation. He was advised to avoid aggravating activitiesand was advised toavoid climbing on his ladder at home. He may continue with heat, analgesic cream and Tylenol for symptomatic relief. Call persistent or worsening symptoms. Ordered: Office Visit Level 3 Est 15824
--- OUTSIDE RECORDS SUMMARY | 2019-03-14 13:51 | XMS REPORT | Referral Summary ---
Author Author [facility] Organization [facility] Address Unknown Phone Unavailable Care Team Providers Care Stitching Machine Feeder Or Offbearer Name Role Phone Carolina Villalobos PCP Encounter VC Date(s): 08/01/17 - 08/01/17 [facility] [id number] [address] Discharge Diagnosis: Hyperlipidemia Discharge Diagnosis: Impaired fasting glucose Discharge Diagnosis: Atherosclerotic peripheral vascular disease Discharge Diagnosis: Benign essential hypertension (disorder) Discharge Diagnosis: Coronary artery disease Discharge Diagnosis: Osteoarthritis Discharge Disposition: 01-Home or Self Care Attending Physician: Clara Sotomayor Admitting Physician: Clara Sotomayor Vital Signs Most recent to 1 oldest [Reference Range]: Peripheral Pulse 52 bpm Rate [60-100 bpm] *LOW* (08/01/17 9:56 AM) Blood Pressure 158/86 mmHg [90-140/60-90 mmHg] *HI* (08/01/17 9:56 AM) SpO2 96 % (08/01/17 9:56 AM) Problem List Condition Effective Dates Status Health Status Informant Kidney 09/18/10 Active dysfunction(Confirme d) Allergic Active rhinitis(Confirmed) Unspecified Active arthropathy, involving lower leg(Confirmed) Benign essential Active hypertension (disorder)(Confirmed ) Bicipital tendonitis Active of left shoulder(Confirmed) Bradycardia(Confirme 09/18/09 Active d) 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/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) Cervical disc Active disease(Confirmed) Coronary Active arteriosclerosis (disorder)(Confirmed ) Coronary Active atherosclerosis of [place] coronary artery(Confirmed) Coronary artery Active disease(Confirmed) Degenerative disk 09/18/12 Active disease, C3-4 on down(Confirmed) Dermatitis(Confirmed Active ) NE(Confirmed) Active Foraminal narrowing 09/18/12 Active C4-5, C5-6, [...] TABLET EVERY DAY, # 90 tabs, eRx: [facility] Start Date: 01/23/17 Status: Ordered atorvastatin 40 mg oral tablet 40 mg 1 tabs, Oral, Daily, # 30 tabs, 0 Refill(s), Pharmacy: [facility], PT MUST KEEP APPT ON 08/01/17 FOR FUTURE REFILLS ONLY FILLING FOR #3 0, 1 tabs Oral Daily Start Date: 07/24/17 Status: Ordered clopidogrel 75 mg oral tablet See Instructions, TAKE 1 TABLET EVERY DAY, # 90 tabs, eRx: [facility], TAKE 1 TABLET EVERY DAY Start Date: 06/12/17 Status: Ordered gabapentin 300 mg oral capsule See Instructions, TAKE 3 CAPSULES AT BEDTIME, # 270 caps, 1 Refill(s), eRx: [facility], TAKE 3 CAPSULES AT BEDTIME Start Date: 06/28/17 Status: Ordered Lasix 20 mg oral tablet 20 mg 1 tabs, Oral, Daily, # 90 tabs, 0 Refill(s), Pharmacy: [facility], 1 tabs Oral Daily Start Date: 03/07/17 Status: Ordered lisinopril 40 mg oral tablet See Instructions, TAKE 1 TABLET EVERY DAY, # 90 tabs, eRx: [facility], TAKE 1 TABLET EVERY DAY Start Date: 01/23/17 Status: Ordered metoprolol succinate 25 mg oral tablet, extended release 12.5 mg 0.5 tabs, Oral, Daily, # 90 tabs, 1 Refill(s), Pharmacy: [facility] Start Date: 02/14/17 Status: Ordered raNITIdine 150 mg oral tablet See Instructions, TAKE 1 TABLET BY MOUTH TWICE DAILY, # 180 tabs, eRx: [id number], TAKE 1 TABLET BY MOUTH TWICE DAILY Start Date: 03/17/17 Status: Ordered raNITIdine 150 mg oral tablet See Instructions, TAKE 1 TABLET TWICE DAILY (NEEDS TO KEEP APPOINTMENT ON 7 FOR FUTURE REFILLS), # 180 tabs, eRx: [facility], TAKE 1 TA BLET TWICE DAILY (NEEDS TO KEEP APPOINTMENT ON 02/28/17 FOR FUTURE REFILLS) Start Date: 06/12/17 Status: Ordered testosterone cypionate 200 mg/mL intramuscular solution 200 mg 1 mL, IntraMuscular, q4wk, # 1 mL, 0 Refill(s), other reason (Rx) Start Date: 03/28/17 Status: Ordered Tylenol Extra Strength 500 mg, [...] SUPERFICIAL FEMORAL ARTERY DR RUFUS BENDER @ [facility] 2STAGE II CLAUDICATION IN THE RIGHT LEG 3auto-populated from documented surgical case 4auto-populated from documented surgical case Social History Social History Type Response Smoking Status Former smoker; Type: Cigarettes1 entered on: 02/18/14 1stopped 25 years ago Assessment and Plan Extracted from: Title: Office Visit Note Author: Clara Sotomayor Date: 08/01/17 We reviewed age and gender appropriate testing. He will be due for repeat colonoscopy in 2019. We discussed the possibility ofcold guard at that point. He has had screening for abdominal aortic aneurysm. He is up-to-date with his eye exams. 1.Atherosclerotic peripheral vascular disease Patient is to stay on his clopidogrel daily. Ordered: Office Visit Level 4 Est 55456 2.Benign essential hypertension (disorder) Discussed importance of good blood pressure control. I will have him monitor his pressures outside the office once he gets back on his Lasix daily. We discussed the importance ofappropriate diuresisand a better diet including lower sodium. If his pressures do notgo down to the 130s systolic and 80s diastolic with the consistency of taking hisLasix will consider adjustment of other medications. 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 He will continue on his Plavix andblood pressure medicine as well as cholesterol-lowering medicine. Ordered: Hemoglobin A1c Lipid Panel Office Visit Level 4 Est 70783 4.Impaired fasting glucose Recheck fasting blood sugars today as well as hemoglobin A1c. We'll make recommendations if the results of the testing. Ordered: Office Visit Level 4 Est 83162 5.Hyperlipidemia Cholesterol be rechecked today. We discussed the goals for him with his history of peripheral vascular disease and coronary artery disease. Ordered: Office Visit Level 4 Est 19918 6.Osteoarthritis Willcontinue to treat his arthritis with Tylenol. This seems to be adequate for him. Ordered: Office Visit Level 4 Est 18454 Hypotestosteronism He is receiving testosterone injectionsregularly. We will bechecking his levels afterhis next injection although he will be receiving an injection today.We will adjust the testosterone according to hisvalue 10 days afterhis next injectionwithout goal of near 300-400 Ordered: CBC w/ Differential Office Visit Level 4 Est 70080 Testosterone, Total, and Free-Botello Immunization due We discussed optional vaccinations today and recommended vaccinations. He will proceed with thePrevnar 13vaccine today. He has received his influenza [facility] on June 29, 2017. He is up-to-date with his tetanus shot. Ordered: Office Visit Level 4 Est 70607 Left knee pain X-ray of the knee will be taken today. Suspect is just bony enlargement from arthritis that is contributing tohis discomfort Ordered: XR Knee 3 Views Left
--- OUTSIDE RECORDS SUMMARY | 2019-03-14 13:51 | XMS REPORT | Referral Summary ---
Author Author [facility] Organization [facility] Address Unknown Phone Unavailable Care Team Providers Care Inspector Rubber Stamp Die Name Role Phone Carolina Villalobos PCP Encounter [facility] Date(s): 03/28/17 - 03/28/17 [facility] [id number] [place] [id number] Discharge Diagnosis: Hypotestosteronism Discharge Diagnosis: Impaired fasting glucose Discharge Diagnosis: Hyperlipidemia Discharge Diagnosis: Benign essential hypertension (disorder) Discharge Diagnosis: Bradycardia Discharge Diagnosis: Edema Discharge Disposition: 01-Home or Self Care Attending Physician: Clara Sotomayor Admitting Physician: Clara Sotomayor Vital Signs Most recent to 1 oldest [Reference Range]: Peripheral Pulse 54 bpm Rate [60-100 bpm] *LOW* (03/28/17 10:58 AM) Blood Pressure 140/72 mmHg [90-140/60-90 mmHg] (03/28/17 10:58 AM) SpO2 97 % (03/28/17 10:58 AM) Problem List Condition Effective Dates Status Health Status Informant Kidney 09/18/10 Active dysfunction(Confirme d) Allergic Active rhinitis(Confirmed) Unspecified Active arthropathy, involving lower leg(Confirmed) Benign essential Active hypertension (disorder)(Confirmed ) Bicipital tendonitis Active of left shoulder(Confirmed) Bradycardia(Confirme 09/18/09 Active d) 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/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) Cervical disc Active disease(Confirmed) Coronary Active arteriosclerosis (disorder)(Confirmed ) Coronary Active atherosclerosis of [place] coronary artery(Confirmed) Coronary artery Active disease(Confirmed) Degenerative disk 09/18/12 Active disease, C3-4 on down(Confirmed) Dermatitis(Confirmed Active ) [place](Confirmed) Active Foraminal narrowing 09/18/12 Active C4-5, C5-6, [...] TABLET EVERY DAY, # 90 tabs, eRx: [facility] Start Date: 01/23/17 Status: Ordered atorvastatin 40 mg oral tablet See Instructions, TAKE 1 TABLET EVERY DAY, # 90 tabs, eRx: [facility], TAKE 1 TABLET EVERY DAY Start Date: 01/23/17 Status: Ordered clopidogrel 75 mg oral tablet See Instructions, TAKE 1 TABLET EVERY DAY, # 90 tabs, eRx: [facility], TAKE 1 TABLET EVERY DAY Start Date: 01/23/17 Status: Ordered gabapentin 300 mg oral capsule See Instructions, TAKE 3 CAPSULES AT BEDTIME, # 180 caps, eRx: [facility], TAKE 3 CAPSULES AT BEDTIME Start Date: 01/23/17 Status: Ordered Lasix 20 mg oral tablet 20 mg 1 tabs, Oral, Daily, # 90 tabs, 0 Refill(s), Pharmacy: [email or web address], 1 tabs Oral Daily Start Date: 03/07/17 Status: Ordered lisinopril 40 mg oral tablet See Instructions, TAKE 1 TABLET EVERY DAY, # 90 tabs, eRx: [facility], TAKE 1 TABLET EVERY DAY Start Date: 01/23/17 Status: Ordered metoprolol succinate 25 mg oral tablet, extended release 12.5 mg 0.5 tabs, Oral, Daily, # 90 tabs, 1 Refill(s), Pharmacy: [facility] Start Date: 02/14/17 Status: Ordered raNITIdine 150 mg oral tablet See Instructions, TAKE 1 TABLET BY MOUTH TWICE DAILY, # 180 tabs, eRx: [facility] [id number], TAKE 1 TABLET BY MOUTH TWICE DAILY Start Date: 03/17/17 Status: Ordered testosterone cypionate 200 mg/mL intramuscular solution 200 mg 1 mL, IntraMuscular, q4wk, # 1 mL, 0 Refill(s), other reason (Rx) Start Date: 03/28/17 Status: Ordered Tylenol Extra Strength 500 mg, Oral, q6hr, PRN, 0 Refill(s) Start Date: 02/18/14 Status: Ordered Tylenol PM mL, Oral, Bedtime (once a day), 0 Refill(s) Start Date: 02/14/17 Status: Ordered Results Chemistry Most recent to 1 oldest [Reference Range]: Sodium Lvl [135-144 140 mEq/L mEq/L] (03/28/17 12:05 PM) Potassium Lvl 4.6 mEq/L [3.5-5.2 mEq/L] (03/28/17 12:05 PM) Chloride [99-111 107 mEq/L mEq/L] (03/28/17 12:05 PM) CO2 [23-31 mEq/L] 24 mEq/L (03/28/17 12:05 PM) AGAP [3-20 mEq/L] 9 mEq/L (03/28/17 12:05 PM) BUN [8-26 mg/dL] 23 mg/dL (03/28/17 12:05 PM) Glucose Lvl [70-99 109 mg/dL mg/dL] *HI* (03/28/17 12:05 PM) Creatinine Lvl 1.48 mg/dL [0.72-1.25 mg/dL] *HI* (03/28/17 12:05 PM) eGFR [>60 mL/min] 47 mL/min 1 *ABN* (03/28/17 12:05 PM) Calcium Lvl 9.9 mg/dL [8.4-10.2 mg/dL] (03/28/17 12:05 PM) 1Result Comment: Multiply eGFR results by [...] SUPERFICIAL FEMORAL ARTERY DR RUFUS BENDER @ [facility] 2STAGE II CLAUDICATION IN THE RIGHT LEG 3auto-populated from documented surgical case 4auto-populated from documented surgical case Social History Social History Type Response Smoking Status Former smoker; Type: Cigarettes1 1stopped 25 years ago Assessment and Plan Extracted from: Title: Office Visit Note Author: Clara Sotomayor Date: 03/28/17 Assessment/Plan 1.Benign essential hypertension (disorder) Pressures are okay today. We have recently reduced his medications because of his low pulse. We'll continue at the low-dose metoprolol due to his past history ofmyocardial infarctionand need for stent placement. If he continues to feel symptomatic with appropriate amounts of fluidwill consider referral back to cardiology for further recommendations. Ordered: Basic Metabolic Panel Office Visit Level 4 Est 96967 2.Bradycardia Patient still is bradycardic. Rate has increased from previous. Encouraged appropriate amount of fluids. Let us know if the value does not gradually increased since it has been less than 2 weeks since we reduced his metoprolol dose. Ordered: Office Visit Level 4 Est 65174 3.Edema His swelling has greatly improved. We'll continue daily Lasix. We'll obtainelectrolytes to make sure he's achieving adequate goals for potassium. We'll also reevaluate his renal tests. Ordered: Basic Metabolic Panel Office Visit Level 4 Est 27450 Hyperlipidemia We reviewed his lipid panel. Discussed the importance of a low-fat diet. He will continue his a torus statin but may need to consider adjunctive agents due to the elevatedtriglycerides if diet does not improve these values. Ordered: Office Visit Level 4 Est 86669 Hypotestosteronism We reviewed his testosterone level. Reviewed treatment options. He does want to proceed with injections. His first testosterone injection of 2 mg was administered today. He will continue with injections once monthly but 10 days after his third injection he will have his labs redrawn, CBC,free and total testosterone, PSA to make sure that thevalues have remainedstable and that his testosterone has improved. Ordered: Office Visit Level 4 Est 44250 Impaired fasting glucose We discussed his fasting blood sugar as well as hemoglobin A1c. Encouraged a lower carbohydrate diet. Follow-up in6 months with recheck of hislabs Ordered: Office Visit Level 4 Est 26115
--- OUTSIDE RECORDS SUMMARY | 2019-03-14 13:52 | XMS REPORT | Referral Summary ---
Author Author [facility] Organization [facility] Address Unknown Phone Unavailable Care Team Providers Care Cash On Delivery Clerk Name Role Phone Carolina Villalobos PCP Encounter [facility] Date(s): 06/05/17 - 06/05/17 [facility] [phone] [id number] Discharge Disposition: 01-Home or Self Care Attending Physician: Carolina Villalobos MD Admitting Physician: Carolina Villalobos MD Vital Signs No data available for [...] arteriosclerosis (disorder)(Confirmed ) Coronary Active atherosclerosis of [place] coronary artery(Confirmed) Coronary artery Active disease(Confirmed) Degenerative disk 09/18/12 Active disease, C3-4 on down(Confirmed) Dermatitis(Confirmed Active ) [place](Confirmed) Active Foraminal narrowing 09/18/12 Active C4-5, C5-6, [...] TABLET EVERY DAY, # 90 tabs, eRx: [facility] Start Date: 01/23/17 Status: Ordered atorvastatin 40 mg oral tablet See Instructions, TAKE 1 TABLET EVERY DAY, # 90 tabs, eRx: [facility], TAKE 1 TABLET EVERY DAY Start Date: 01/23/17 Status: Ordered clopidogrel 75 mg oral tablet See Instructions, TAKE 1 TABLET EVERY DAY, # 90 tabs, eRx: [facility], TAKE 1 TABLET EVERY DAY Start Date: 01/23/17 Status: Ordered gabapentin 300 mg oral capsule See Instructions, TAKE 3 CAPSULES AT BEDTIME, # 180 caps, 1 Refill(s), eRx: [facility], TAKE 3 CAPSULES AT BEDTIME Start Date: 04/03/17 Status: Ordered Lasix 20 mg oral tablet 20 mg 1 tabs, Oral, Daily, # 90 tabs, 0 Refill(s), Pharmacy: [facility], 1 tabs Oral Daily Start Date: 03/07/17 Status: Ordered lisinopril 40 mg oral tablet See Instructions, TAKE 1 TABLET EVERY DAY, # 90 tabs, eRx: [facility], TAKE 1 TABLET EVERY DAY Start Date: 01/23/17 Status: Ordered metoprolol succinate 25 mg oral tablet, extended release 12.5 mg 0.5 tabs, Oral, Daily, # 90 tabs, 1 Refill(s), Pharmacy: [facility] Start Date: 02/14/17 Status: Ordered raNITIdine 150 mg oral tablet See Instructions, TAKE 1 TABLET BY MOUTH TWICE DAILY, # 180 tabs, eRx: [facility] [id number], TAKE 1 TABLET BY MOUTH TWICE DAILY [...] and Recorded Vaccine Date Status Refusal Reason influenza virus vaccine, live 07/15/13 Given influenza [...]
--- OUTSIDE RECORDS SUMMARY | 2019-03-14 13:52 | XMS REPORT | Referral Summary ---
Author Author [facility] Organization [facility] Address Unknown Phone Unavailable Care Team Providers Care Educator Senior Clinical Name Role Phone Carolina Villalobos PCP Encounter VC Date(s): 03/19/18 - 03/19/18 [facility] [id number] [place] [id number] Encounter Diagnosis Impaired fasting glucose (Discharge Diagnosis) - 03/19/18 Kidney dysfunction (Discharge Diagnosis) - 03/19/18 Osteoarthritis (Discharge Diagnosis) - 03/19/18 Benign essential hypertension (disorder) (Discharge Diagnosis) - 03/19/18 Coronary arteriosclerosis (disorder) (Discharge Diagnosis) - 03/19/18 Cervical disc disease (Discharge Diagnosis) - 03/19/18 Dyslipidemia (Discharge Diagnosis) - 03/19/18 Discharge Disposition: 01-Home or Self Care Attending Physician: Clara Sotomayor Admitting Physician: Clara Sotomayor Vital Signs Most recent to 1 oldest [Reference Range]: Peripheral Pulse 51 bpm Rate [60-100 bpm] *LOW* (03/19/18 7:38 AM) Blood Pressure 130/70 mmHg [90-140/60-90 mmHg] (03/19/18 7:38 AM) SpO2 98 % (03/19/18 7:38 AM) Problem List Condition Effective Dates Status Health Status Informant Kidney 09/18/10 Active dysfunction(Confirme d) Allergic Active rhinitis(Confirmed) Unspecified Active arthropathy, involving lower leg(Confirmed) Benign essential Active hypertension (disorder)(Confirmed ) Bicipital tendonitis Active of left shoulder(Confirmed) Bradycardia(Confirme 09/18/09 Active d) 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/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) Cervical disc Active disease(Confirmed) Coronary Active arteriosclerosis (disorder)(Confirmed ) Coronary Active atherosclerosis of [place] coronary artery(Confirmed) Coronary artery Active disease(Confirmed) Degenerative disk 09/18/12 Active disease, C3-4 on down(Confirmed) Dermatitis(Confirmed Active ) RI(Confirmed) Active Foraminal narrowing 09/18/12 Active C4-5, C5-6, [...] TABLET EVERY DAY, # 90 tabs, eRx: [facility], TAKE 1 TABLET EVERY DAY Start Date: 12/06/17 Status: Ordered atorvastatin 40 mg oral tablet See Instructions, TAKE 1 TABLET EVERY DAY, # 90 tabs, eRx: [facility] Start Date: 03/16/18 Status: Ordered clopidogrel 75 mg oral tablet See Instructions, TAKE 1 TABLET EVERY DAY, # 90 tabs, eRx: [facility], TAKE 1 TABLET EVERY DAY Start Date: 12/06/17 Status: Ordered gabapentin 300 mg oral capsule See Instructions, TAKE 3 CAPSULES AT BEDTIME, # 270 caps, eRx: [facility], TAKE 3 CAPSULES AT BEDTIME Start Date: 03/16/18 Status: Ordered lisinopril 40 mg oral tablet See Instructions, TAKE 1 TABLET EVERY DAY, # 90 tabs, eRx: [facility] Start Date: 03/16/18 Status: Ordered Metoprolol Succinate ER 25 mg oral tablet, extended release See Instructions, TAKE 1 TABLET EVERY DAY, # 90 tabs, eRx: [facility], TAKE 1 TABLET EVERY DAY Start Date: 12/06/17 Status: Ordered raNITIdine 150 mg oral tablet See Instructions, TAKE 2 TABLETS EVERY DAY, # 180 tabs, eRx: [facility], TAKE 2 TABLETS EVERY DAY Start Date: 12/06/17 Status: Ordered Tylenol Extra Strength 500 mg, Oral, q6hr, PRN, 0 Refill(s) Start Date: 02/18/14 Status: Ordered Tylenol PM Oral, Bedtime (once a day), 0 Refill(s) Start Date: 03/19/18 Status: Ordered Results Hematology Most recent to 1 oldest [Reference Range]: WBC [4.8-10.8 4.8 10*3/uL 10*3/uL] (03/19/18 8:57 AM) RBC [4.60-6.20] 5.04 (03/19/18 8:57 AM) Hgb [14.0-18.0 15.5 gm/dL gm/dL] (03/19/18 8:57 AM) Hct [42.0-52.0 %] 47.9 % (03/19/18 8:57 AM) MCV [82.0-99.0 fL] 95.0 fL (03/19/18 8:57 AM) MCH [27.0-32.0 pg] 30.8 pg (03/19/18 8:57 AM) MCHC [32.0-36.0 32.4 gm/dL gm/dL] (03/19/18 8:57 AM) RDW [11.5-14.5 %] 13.6 % (03/19/18 8:57 AM) Platelet [150-400 205 10*3/uL 10*3/uL] (03/19/18 8:57 AM) MPV [8.8-14.8 fL] 10.8 fL (03/19/18 8:57 AM) Immature 0.2 % Granulocytes (03/19/18 8:57 AM) [0.0-1.0 %] Neutrophils [51-75 41 % %] *LOW* (03/19/18 8:57 AM) Lymphocytes [20-46 35 % %] (03/19/18 8:57 AM) Monocytes [4-11 %] 14 % *HI* (03/19/18 8:57 AM) Eosinophils [0-4 %] 9 % *HI* (03/19/18 8:57 AM) Basophils [0-2 %] 1 % (03/19/18 8:57 AM) Neutro Absolute 1.94 [1.90-7.00] (03/19/18 8:57 AM) Lymph Absolute 1.67 [0.80-3.30] (03/19/18 8:57 AM) [place] Absolute 0.66 [0.30-1.00] (03/19/18 8:57 AM) Eos Absolute 0.41 [0.00-0.50] (03/19/18 8:57 AM) Baso Absolute 0.06 [0.00-0.20] (03/19/18 8:57 AM) Nucleated RBC 0.0 /100 WBC Automated [0 /100 (03/19/18 8:57 AM) WBC] Chemistry Most recent to 1 oldest [Reference Range]: Sodium Lvl [135-144 141 mEq/L mEq/L] (03/19/18 8:57 AM) Potassium Lvl 4.9 mEq/L [3.5-5.2 mEq/L] (03/19/18 8:57 AM) Chloride [99-111 109 mEq/L mEq/L] (03/19/18 8:57 AM) CO2 [23-31 mEq/L] 26 mEq/L (03/19/18 8:57 AM) AGAP [3-20 mEq/L] 6 mEq/L (03/19/18 8:57 AM) BUN [8-26 mg/dL] 18 mg/dL (03/19/18 8:57 AM) Glucose Lvl [70-99 102 mg/dL mg/dL] *HI* (03/19/18 8:57 AM) Creatinine Lvl 1.18 mg/dL [0.72-1.25 mg/dL] (03/19/18 8:57 AM) eGFR [>60 mL/min] >60 mL/min 1 (03/19/18 8:57 AM) Calcium Lvl 9.8 mg/dL [8.4-10.2 mg/dL] (03/19/18 8:57 AM) Albumin Lvl [3.4-4.8 4.6 gm/dL gm/dL] (03/19/18 8:57 AM) Total Protein 6.3 gm/dL [6.0-7.6 gm/dL] (03/19/18 8:57 AM) Globulin [1.8-4.0 1.7 gm/dL gm/dL] *LOW* (03/19/18 8:57 AM) ALT [0-55 U/L] 19 U/L (03/19/18 8:57 AM) AST [5-34 U/L] 16 U/L (03/19/18 8:57 AM) Alk Phos [40-150 68 U/L U/L] (03/19/18 8:57 AM) Bili Total [0.2-1.2 0.5 mg/dL mg/dL] (03/19/18 8:57 AM) Magnesium Lvl 2.4 mg/dL [1.6-2.6 mg/dL] (03/19/18 8:57 AM) Chol [0-199 mg/dL] 184 mg/dL (03/19/18 8:57 AM) Trig [0-149 mg/dL] 338 mg/dL *HI* (03/19/18 8:57 AM) HDL [40-84 mg/dL] 27 mg/dL *LOW* (03/19/18 8:57 AM) LDL [0-130 mg/dL] 89 mg/dL (03/19/18 8:57 AM) VLDL Cholesterol 68 mg/dL [0-28 mg/dL] *HI* (03/19/18 8:57 AM) Cardiac Risk 6.8 [0.0-5.7] *HI* (03/19/18 8:57 AM) TSH [0.35-4.94 2.10 mcIU/mL mcIU/mL] (03/19/18 8:57 AM) Hgb A1c [4.1-5.6 %] 6.2 % *HI* (03/19/18 8:57 AM) eAvg Glucose 131.2 mg/dL (03/19/18 8:57 AM) 1Result Comment: Multiply eGFR results by [...] SUPERFICIAL FEMORAL ARTERY DR RUFUS BENDER @ [facility] 2STAGE II CLAUDICATION IN THE RIGHT LEG 3auto-populated from documented surgical case 4auto-populated from documented surgical case Social History Social History Type Response Smoking Status Former smoker; Type: Cigarettes1 entered on: 02/18/14 1stopped 25 years ago Assessment and Plan Extracted from: Title: Office Visit Note Author: Clara Sotomayor Date: 03/19/18 1.Benign essential hypertension (disorder) Pressures are good today. He is on a regimen of medications and consistent with usage. Continue same medications. Ordered: Office Visit Level 4 Est 80609 2.Coronary arteriosclerosis (disorder) Him back tocardiology for an evaluation. He has had to use her nitroglycerin. It's been 3 years since his last cardiac workup. He does continue on Plavix. Ordered: Internal Referral to Cardiology Office Visit Level 4 Est 01147 3.Dyslipidemia We'll recheck his lipid profile to make sure the Lipitor is getting him to goal. Ordered: Office Visit Level 4 Est 05384 4.Impaired fasting glucose We'll recheck fasting blood sugar. Encourage a lower carbohydrate diet. Ordered: Office Visit Level 4 Est 28801 5.Kidney dysfunction We'll recheck his renal testing to make sure they've remained stable. Ordered: Office Visit Level 4 Est 82433 6.Osteoarthritis He continues to have troubles with his osteoarthritis but uses Tylenol for this discomfort. He does not feel that is bothersome enough to start any other medications at this time. Ordered: Office Visit Level 4 Est 42331 7.Cervical disc disease Uncertain if beenupper left arm pain is related to cervical disc disease that he has knownafter having an MRI performed. Dermatome would correlate. We willfollow through with cardiac evaluation and ifno concerning findings. We'll consider further workup for cervical disc disease ascause of his pain. Ordered: Office Visit Level 4 Est 25274 Myalgia See number 7 above Ordered: Office Visit Level 4 Est 94018
--- OUTSIDE RECORDS SUMMARY | 2019-03-14 13:52 | XMS REPORT | Referral Summary ---
Author Author [facility] Organization [facility] Address Unknown Phone Unavailable Care Team Providers Care Skilled Nursing Professional Name Role Phone Carolina Villalobos PCP Encounter VC Date(s): 07/04/17 - 07/04/17 [facility] [id number] [id number] Discharge Disposition: 01-Home or Self Care [...] arteriosclerosis (disorder)(Confirmed ) Coronary Active atherosclerosis of [place] coronary artery(Confirmed) Coronary artery Active disease(Confirmed) Degenerative disk 09/18/12 Active disease, C3-4 on down(Confirmed) Dermatitis(Confirmed Active ) MS(Confirmed) Active Foraminal narrowing 09/18/12 Active C4-5, C5-6, [...] TABLET EVERY DAY, # 90 tabs, eRx: [facility] Start Date: 01/23/17 Status: Ordered atorvastatin 40 mg oral tablet See Instructions, TAKE 1 TABLET EVERY DAY, # 90 tabs, eRx: [facility], TAKE 1 TABLET EVERY DAY Start Date: 01/23/17 Status: Ordered clopidogrel 75 mg oral tablet See Instructions, TAKE 1 TABLET EVERY DAY, # 90 tabs, eRx: [facility], TAKE 1 TABLET EVERY DAY Start Date: 06/12/17 Status: Ordered gabapentin 300 mg oral capsule See Instructions, TAKE 3 CAPSULES AT BEDTIME, # 270 caps, 1 Refill(s), eRx: [facility], TAKE 3 CAPSULES AT BEDTIME Start Date: 06/28/17 Status: Ordered Lasix 20 mg oral tablet 20 mg 1 tabs, Oral, Daily, # 90 tabs, 0 Refill(s), Pharmacy: [facility], 1 tabs Oral Daily Start Date: 03/07/17 Status: Ordered lisinopril 40 mg oral tablet See Instructions, TAKE 1 TABLET EVERY DAY, # 90 tabs, eRx: [facility], TAKE 1 TABLET EVERY DAY Start Date: 01/23/17 Status: Ordered metoprolol succinate 25 mg oral tablet, extended release 12.5 mg 0.5 tabs, Oral, Daily, # 90 tabs, 1 Refill(s), Pharmacy: [facility] Start Date: 02/14/17 Status: Ordered raNITIdine 150 mg oral tablet See Instructions, TAKE 1 TABLET BY MOUTH TWICE DAILY, # 180 tabs, eRx: [id number], TAKE 1 TABLET BY MOUTH TWICE DAILY Start Date: 03/17/17 Status: Ordered raNITIdine 150 mg oral tablet See Instructions, TAKE 1 TABLET TWICE DAILY (NEEDS TO KEEP APPOINTMENT ON 7 FOR FUTURE REFILLS), # 180 tabs, eRx: [facility], TAKE 1 TA BLET [...] SUPERFICIAL FEMORAL ARTERY DR RUFUS BENDER @ [facility] 2STAGE II CLAUDICATION IN THE RIGHT LEG 3auto-populated from documented surgical case 4auto-populated from documented surgical case Social History Social History Type Response Smoking Status Former smoker; Type: Cigarettes1 entered on: 02/18/14 1stopped 25 years ago Assessment and Plan No data available for this section
--- OUTSIDE RECORDS SUMMARY | 2019-03-14 13:52 | XMS REPORT | Referral Summary ---
Author Author [facility] Organization [facility] Address Unknown Phone Unavailable Care Team Providers Care Wind Turbine Service Technician Name Role Phone Carolina Villalobos PCP Encounter VC Date(s): 02/23/15 - 02/23/15 [facility] [id number] [id number] Discharge Diagnosis: Dermatitis Discharge Diagnosis: Hyperlipidemia Discharge Diagnosis: Impaired fasting glucose Discharge Diagnosis: Disorder of kidney and/or ureter Discharge Diagnosis: Benign essential hypertension Discharge Diagnosis: Coronary arteriosclerosis Discharge Diagnosis: Chronic shoulder pain Discharge Disposition: 01-Home or Self Care Attending Physician: Clara Sotomayor Admitting Physician: Clara Sotomayor Vital Signs Most recent to 1 oldest [Reference Range]: Peripheral Pulse 53 bpm Rate [60-100 bpm] *LOW* (02/23/15 10:31 AM) Blood Pressure 138/76 mmHg [90-140/60-90 mmHg] (02/23/15 10:31 AM) SpO2 97 % (02/23/15 10:31 AM) Problem List Condition Effective Dates Status Health Status Informant Kidney 09/18/10 Active dysfunction(Confirme d) Allergic Active rhinitis(Confirmed) Unspecified Active arthropathy, involving lower leg(Confirmed) Benign essential Active hypertension (disorder)(Confirmed ) Bradycardia(Confirme 09/18/09 Active d) 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/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) Cervical disc Active disease(Confirmed) Coronary Active arteriosclerosis (disorder)(Confirmed ) Coronary Active atherosclerosis of [place] coronary artery(Confirmed) Coronary artery Active disease(Confirmed) Degenerative disk 09/18/12 Active disease, C3-4 on down(Confirmed) Dermatitis(Confirmed Active ) HI(Confirmed) Active Foraminal narrowing 09/18/12 Active C4-5, C5-6, C6-7(Confirmed) 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) Disorder of kidney Active and/or ureter (disorder)(Confirmed ) Dyslipidemia(Confirm Active ed) Right hip Active pain(Confirmed) Hyperlipidemia(Confi Active rmed) Anterior 09/18/12 Active osteophytes(Confirme d) Impaired fasting Active glucose(Confirmed) Lumbar Active pain(Confirmed) Leg 09/18/08 Active numbness(Confirmed) Obesity Active (disorder)(Confirmed ) Osteoarthritis(Confi Active rmed) Peripheral vascular Active disease(Confirmed) Colonic Active polyps(Confirmed) Syncope(Confirmed) 09/18/10 Active Allergies, Adverse Reactions, Alerts Substance Reaction Severity Status hydrochlorothiazide Active Medications amLODIPine 10 mg oral tablet 1 tabs, Oral, Daily, # 30 tabs, 0 Refill(s) Start Date: 02/18/14 Status: Ordered Aspir 81 mg, Oral, Daily, 0 Refill(s) Start Date: 02/18/14 Status: Ordered atorvastatin 40 mg oral tablet See Instructions, 1 TABS ORAL DAILY, # 90 tabs, 2 Refill(s), eRx: [facility] [id number], 1 TABS ORAL DAILY Start Date: 08/03/15 Status: Ordered Flomax 0.4 mg oral capsule See Instructions, 1 CAPS ORAL DAILY,INSTR:30 MINUTES AFTER THE SAME MEAL, # 30 c aps, 3 Refill(s), eRx: [facility] [id number], 1 CAPS ORAL DAILY,INSTR:30 HI NUTES AFTER THE SAME MEAL Start Date: 07/28/15 Status: Ordered gabapentin 300 mg oral capsule 900 mg 3 caps, Oral, Before Breakfast, 0 Refill(s) Start Date: 02/18/14 Status: Ordered lisinopril 40 mg oral tablet 1 tabs, Oral, Daily, # 30 tabs, 0 Refill(s), Pharmacy: [facility] [id number] 0 Start Date: 03/14/14 Status: Ordered Metoprolol Tartrate 25 mg oral tablet 1 tabs, Oral, BID, # 60 tabs, 0 Refill(s) Start Date: 02/18/14 Status: Ordered Plavix 75 mg oral tablet 1 tabs, Oral, Daily, # 30 tabs, 0 Refill(s) Start Date: 02/18/14 Status: Ordered ranitidine 150 mg oral tablet See Instructions, TAKE 1 TABLET BY MOUTH TWICE DAILY, # 180 tabs, eRx: [id number], TAKE 1 TABLET BY MOUTH TWICE DAILY Start Date: 06/08/15 Status: Ordered traMADol 50 mg oral tablet 50 mg 1 tabs, Oral, q12hr, as needed for pain, # 60 tabs, 1 Refill(s) Start Date: 08/24/15 Status: Ordered Tylenol Extra Strength 500 mg, Oral, q6hr, 0 Refill(s) Start Date: 02/18/14 Status: Ordered Results Hematology Most recent to 1 oldest [Reference Range]: WBC [4.8-10.8 6.7 10*3/uL 10*3/uL] (02/23/15 11:37 AM) RBC [4.60-6.20 5.21 10*6/uL 10*6/uL] (02/23/15 11:37 AM) Hgb [14.0-18.0 16.2 gm/dL gm/dL] (02/23/15 11:37 AM) Hct [42.0-52.0 %] 47.2 % (02/23/15 11:37 AM) MCV [82.0-99.0 fL] 90.6 fL (02/23/15 11:37 AM) MCH [27.0-32.0 pg] 31.1 pg (02/23/15 11:37 AM) MCHC [32.0-36.0 34.3 gm/dL gm/dL] (02/23/15 11:37 AM) RDW [11.5-14.5 %] 12.8 % (02/23/15 11:37 AM) Platelet [150-400 226 10*3/uL 10*3/uL] (02/23/15 11:37 AM) MPV [8.8-14.8 fL] 10.8 fL (02/23/15 11:37 AM) Immature 0.0 % Granulocytes (02/23/15 11:37 AM) [0.0-1.0 %] Neutrophils [51-75 58 % %] (02/23/15 11:37 AM) Lymphocytes [20-46 26 % %] (02/23/1537 AM) Monocytes [4-11 %] 12 % *HI* (02/23/1537 AM) Eosinophils [0-4 %] 4 % (02/23/1537 AM) Basophils [0-2 %] 1 % (02/23/15:37 AM) Neutro Absolute 3.83 10*3 [1.90-7.00 10*3] (02/23/1537 AM) Lymph Absolute 1.73 10*3 [0.80-3.30 10*3] (02/23/15 11:37 AM) [place] Absolute 0.79 10*3 [0.30-1.00 10*3] (02/23/15:37 AM) Eos Absolute 0.28 10*3 [0.00-0.50 10*3] (02/23/15:37 AM) Baso Absolute 0.04 10*3 [0.00-0.20 10*3] (02/23/15:37 AM) Chemistry Most recent to 1 oldest [Reference Range]: Sodium Lvl [135-144 142 mEq/L mEq/L] (02/23/15:37 AM) Potassium Lvl 4.6 mEq/L [3.5-5.2 mEq/L] (02/23/15:37 AM) Chloride [99-111 106 mEq/L mEq/L] (02/23/1537 AM) CO2 [23-31 mEq/L] 27 mEq/L (02/23/1537 AM) AGAP [3-20] 9 (02/23/15:37 AM) BUN [8-26 mg/dL] 19 mg/dL (02/23/15:37 AM) Glucose Lvl [70-99 100 mg/dL mg/dL] *HI* (02/23/1537 AM) Creatinine Lvl 1.23 mg/dL [0.72-1.25 mg/dL] (02/23/15:37 AM) eGFR [>60 mL/min] 58 mL/min 1 *ABN* (02/23/1537 AM) Calcium Lvl 10.2 mg/dL [8.9-10.5 mg/dL] (02/23/15 11:37 AM) Albumin Lvl [3.4-4.8 4.7 gm/dL gm/dL] (02/23/1537 AM) Total Protein 7.0 gm/dL [6.2-8.1 gm/dL] (02/23/15 11:37 AM) Globulin [1.8-4.0 2.3 gm/dL gm/dL] (02/23/15 11:37 AM) ALT [0-55 U/L] 43 U/L (02/23/15 11:37 AM) AST [5-34 U/L] 28 U/L (02/23/15 11:37 AM) Alk Phos [40-150 76 U/L U/L] (02/23/1537 AM) Bili Total [0.2-1.2 1.0 mg/dL mg/dL] (02/23/15:37 AM) Chol [0-199 mg/dL] 147 mg/dL (02/23/15:37 AM) Trig [0-149 mg/dL] 153 mg/dL *HI* (02/23/15:37 AM) HDL [40-84 mg/dL] 34 mg/dL *LOW* (02/23/15:37 AM) LDL [0-130 mg/dL] 82 mg/dL (02/23/15:37 AM) VLDL Cholesterol 31 mg/dL [0-28 mg/dL] *HI* (02/23/15:37 AM) Cardiac Risk 4.3 [0.0-5.7] (02/23/15 11:37 AM) Hgb A1c [4.1-5.6 %] 5.8 % *HI* (02/23/15 11:37 AM) eAvg Glucose 119.8 mg/dL (02/23/15 11:37 AM) 1Result Comment: Multiply eGFR results by 1.21 for race. Immunizations Vaccine Date Refusal Reason tetanus/diphth/pertuss (Tdap) adult/adol 12/29/09 influenza virus vaccine, live 07/15/13 influenza virus vaccine, live 07/03/12 influenza virus vaccine, live 06/24/11 influenza virus vaccine, live 06/10/10 influenza virus vaccine, live 06/05/09 pneumococcal 23-polyvalent vaccine 06/10/10 Procedures Procedure Date Related Diagnosis Body Site Colonoscopy with polypectomy 09/18/12 R total knee arthroplasty 09/18/10 PTCA w/stent of proximal LAD and diagonal LAD 09/18/09 Left cardiac catheterization 09/18/06 Arthrocentesis, right Social History Social History Type Response Smoking Status Former smoker; Type: Cigarettes1 1stopped 25 years ago Assessment and Plan Extracted from: Title: Office Visit Note Author: Clara Sotomayor Date: 02/23/15 Assessment/Plan 1.Dermatitis We'll refer the patient for possible biopsy. Encouraged him to keep moisturizer on his skin. Apparently there was a history of some type of chemical exposure to his skin and he is wanting to make sure that the area that has continued to be reddened is nothing to be concerned about and no need for specific types of monitoring Ordered: Office Visit Level 3 Est 67033 2.Impaired fasting glucose We'll recheck his fasting sugars today as well as a hemoglobin A1c. He has lost over 20 pounds by dietary changes and exercise. Encouraged he continue with these lifestyle modifications Ordered: Hemoglobin A1c Office Visit Level 3 Est 59003 3.Chronic shoulder pain He does have control of his discomfort with tramadol. We'll have him continue medication at twice a day dosing. Refilled prescriptions today Benign essential hypertension Blood pressures are stable. He keeps in contact with his real estate professor and will have a follow-up visit with them in approximately 6 months. Ordered: CBC w/ Differential Comprehensive Metabolic Panel Office Visit Level 3 Est 46719 Coronary arteriosclerosis Patient has had bypass surgery. He will stay in close follow-up with his real estate professor. We will be checking his lipids today to make sure he's achieving appropriate goal. He will continue his Plavix Ordered: Office Visit Level 3 Est 82346 Disorder of kidney and/or ureter Recent has had stents placed in his ureters. We'll recheck his renal functioning test today. Ordered: Office Visit Level 3 Est 43052 Hyperlipidemia We'll recheck lipid panel today. His last lipids were quite elevated and with his history of coronary artery disease want to make sure he's achieving appropriate goals. We did increase his atorvastatin from 20 mg up to 40 mg at his last visit Ordered: Lipid Panel Office Visit Level 3 Est 45088 Orders: traMADol, 50 mg 1 tabs, Oral, q12hr, as needed for pain, # 60 tabs, 5 Refill(s) Addendum I reviewed this chart, the patient's medical history, and the by Claus, Resident's/RETAIL SALES ASSOCIATE SEASONAL's/PA/RN's/PharmD's documented findings, and concur with the assessment and Elizabeth Hernandez plan as above. on February 23, 2015 12:49:57 CDT
--- OUTSIDE RECORDS SUMMARY | 2019-03-14 13:53 | XMS REPORT | Referral Summary ---
Author Author [facility] Organization [facility] Address Unknown Phone Unavailable Care Team Providers Care Motorboat Mechanic Inboard/Outboard Name Role Phone Carolina Villalobos PCP Encounter [facility] Date(s): 03/05/15 - 03/05/15 [facility] [id number] [address] Discharge Diagnosis: Hand tendonitis Discharge Diagnosis: Cellulitis Discharge Disposition: 01-Home or Self Care Attending Physician: Clara Sotomayor Admitting Physician: Clara Sotomayor Vital Signs Most recent to 1 oldest [Reference Range]: Apical Heart Rate 66 bpm [60-100 bpm] (03/05/15 9:14 AM) Blood Pressure 124/78 mmHg [90-140/60-90 mmHg] (03/05/15 9:14 AM) Problem List Condition Effective Dates Status Health Status Informant Kidney 09/18/10 Active dysfunction(Confirme d) Allergic Active rhinitis(Confirmed) Unspecified Active arthropathy, involving lower leg(Confirmed) Benign essential Active hypertension (disorder)(Confirmed ) Bradycardia(Confirme 09/18/09 Active d) 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/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) Cervical disc Active disease(Confirmed) Coronary Active arteriosclerosis (disorder)(Confirmed ) Coronary Active atherosclerosis of [place] coronary artery(Confirmed) Coronary artery Active disease(Confirmed) Degenerative disk 09/18/12 Active disease, C3-4 on down(Confirmed) Dermatitis(Confirmed Active ) [place](Confirmed) Active Foraminal narrowing 09/18/12 Active C4-5, C5-6, [...] DAILY, # 90 tabs, 2 Refill(s), eRx: [facility] [id number], 1 TABS ORAL DAILY Start Date: 08/03/15 Status: Ordered Flomax 0.4 mg oral capsule See Instructions, 1 CAPS ORAL DAILY,INSTR:30 MINUTES AFTER THE SAME MEAL, # 30 c aps, 3 Refill(s), eRx: [facility] [id number], 1 CAPS ORAL DAILY,INSTR:30 NM NUTES AFTER THE SAME MEAL Start Date: 07/28/15 Status: Ordered gabapentin 300 mg oral capsule 900 mg 3 caps, Oral, Before Breakfast, 0 Refill(s) Start Date: 02/18/14 Status: Ordered lisinopril 40 mg oral tablet 1 tabs, Oral, Daily, # 30 tabs, 0 Refill(s), Pharmacy: [facility] [id number] Start Date: 03/14/14 Status: Ordered [...] MOUTH TWICE DAILY, # 180 tabs, eRx: [facility] [id number], TAKE 1 TABLET BY MOUTH TWICE DAILY Start Date: 09/08/15 Status: Ordered traMADol 50 mg oral tablet 50 mg 1 tabs, Oral, q12hr, as needed for pain, # 60 tabs, 1 Refill(s) Start Date: 08/24/15 Status: Ordered Tylenol Extra Strength 500 mg, Oral, q6hr, 0 Refill(s) Start Date: 02/18/14 Status: Ordered Results No data available for this section Immunizations Vaccine Date Refusal Reason tetanus/diphth/pertuss (Tdap) [...] Office Visit Note Author: Clara Sotomayor Date: 03/05/15 Assessment/Plan 1.Hand tendonitis We'll place patient on a short course, 7 days, of 20 mg prednisone I will have the patient apply topical Aspercreme to the area. Avoid activities that aggravate. Ordered: Office Visit Level 3 Est 68280 Cellulitis We'll start on cephalexin. He did have a history of having Clostridium difficile with use of clindamycin in the past. Encouraged him to take probiotics or eat yogurt daily while on this medicine. If he develops any diarrhea he will contact us immediately and stop the antibiotic. If the rash does not improve or any worsening of symptoms he'll contact us. Ordered: Office Visit Level 3 Est 63017 Orders: cephalexin, 500 mg 1 caps, Oral, q8hr, X 10 days, # 30 caps, 0 Refill(s), Pharmacy: [facility] [id number], 1 caps Oral q8hr,x10 days predniSONE, 20 mg 1 tabs, Oral, Daily, X 7 days, # 7 tabs, 0 Refill(s), Pharmacy: [facility] [id number], 1 tabs Oral Daily,x7 days
--- OUTSIDE RECORDS SUMMARY | 2019-03-14 13:53 | XMS REPORT | Referral Summary ---
Author Author [facility] Organization [facility] Address Unknown Phone Unavailable Care Team Providers Care Burr Bench Hand Name Role Phone Carolina Villalobos PCP Encounter [facility] [id number] Date(s): 05/16/16 - 05/16/16 [facility] [id number] [address] Discharge Diagnosis: Colonic polyps Discharge Diagnosis: Coronary arteriosclerosis (disorder) Discharge Diagnosis: Benign essential hypertension (disorder) Discharge Diagnosis: Bradycardia Discharge Diagnosis: Encounter for routine history and physical exam for male Discharge Diagnosis: Osteoarthritis Discharge Diagnosis: Dyslipidemia Discharge Disposition: 01-Home or Self Care Attending Physician: Clara Sotomayor Admitting Physician: Clara Sotomayor Vital Signs Most recent to 1 oldest [Reference Range]: Peripheral Pulse 44 bpm Rate [60-100 bpm] *LOW* (05/16/16 8:11 AM) Blood Pressure 130/70 mmHg [90-140/60-90 mmHg] (05/16/16 8:11 AM) SpO2 98 % (05/16/16 8:11 AM) Problem List Condition Effective Dates Status Health Status Informant Kidney 09/18/10 Active dysfunction(Confirme d) Allergic Active rhinitis(Confirmed) Unspecified Active arthropathy, involving lower leg(Confirmed) Benign essential Active hypertension (disorder)(Confirmed ) Bicipital tendonitis Active of left shoulder(Confirmed) Bradycardia(Confirme 09/18/09 Active d) 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/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) Cervical disc Active disease(Confirmed) Coronary Active arteriosclerosis (disorder)(Confirmed ) Coronary Active atherosclerosis of [place] coronary artery(Confirmed) Coronary artery Active disease(Confirmed) Degenerative disk 09/18/12 Active disease, C3-4 on down(Confirmed) Dermatitis(Confirmed Active ) [place](Confirmed) Active Foraminal narrowing 09/18/12 Active C4-5, C5-6, [...] See Instructions, TAKE 1 TABLET BY MOUTH ONCE DAILY, # 90 tabs, 2 Refill(s), eRx : [facility] [id number], TAKE 1 TABLET BY MOUTH ONCE DAILY Start Date: 05/09/16 Status: Ordered gabapentin 300 mg oral capsule 900 mg 3 caps, Oral, Before Breakfast, 0 Refill(s) Start Date: 02/18/14 Status: Ordered lisinopril 40 mg oral tablet 1 tabs, Oral, Daily, # 30 tabs, 0 Refill(s), Pharmacy: [facility] [id number] Start Date: 03/14/14 Status: Ordered Metoprolol Tartrate 25 mg oral tablet 12.5 mg 0.5 tabs, Oral, Daily, # 60 tabs, 0 Refill(s) Start Date: 02/18/14 Status: Ordered Plavix 75 mg oral tablet 75 mg 1 tabs, Oral, Daily, Resume Monday05/01/16, # 30 tabs, 0 Refill(s) Start Date: 02/18/14 Status: Ordered ranitidine 150 mg oral tablet See Instructions, TAKE 1 TABLET BY MOUTH TWICE DAILY, # 180 tabs, 2 Refill(s), e Rx: [facility] [id number], TAKE 1 TABLET BY MOUTH TWICE DAILY Start Date: 12/10/15 Status: Ordered Tylenol Extra Strength 500 mg, [...] Procedures Procedure Date Related Diagnosis Body Site Colonoscopy1 04/27/16 Procedure with Anesthesia2 04/27/16 Colonoscopy with polypectomy 09/18/12 R total knee arthroplasty 09/18/10 PTCA w/stent of proximal LAD and diagonal LAD 09/18/09 Left cardiac catheterization 09/18/06 Arthrocentesis, right kidney stents stent in bilateral lower extremites stomach stents 1auto-populated from documented surgical case 2auto-populated from documented surgical case Social History Social History Type Response Smoking Status Former smoker; Type: Cigarettes1 1stopped 25 years ago Assessment and Plan Extracted from: Title: Office Visit Note Author: Clara Sotomayor Date: 05/16/16 Assessment/Plan Benign essential hypertension (disorder) Pressures are good today. We'll continue his same medications except we will be reducing his metoprolol due to his bradycardia. Ordered: Office Visit Level 4 Est 81466 Bradycardia Asked the patient to reduce his metoprolol to half tablet a day. He will continue to monitor hispulse outside the office and if his values do not stay in the mid to higher 50s he will contact us. He has had a recent follow-up with his cardiologistand no medication changes were performed at that time. We may need to refer back to the supervisor jewelry department as he was unable to proceed with testing that had been recommendedby Dr. Olea, per his insurance. Ordered: Office Visit Level 4 Est 51545 Colonic polyps He has had a recent colonoscopy. A polyp was found. He is due to have a repeat in 3 years, 2019. Ordered: Office Visit Level 4 Est 84282 Coronary arteriosclerosis (disorder) He will continue on his medications as currently taking. We discussed theimportance of regular follow-up with cardiology. We'll also ask consider scheduling a carotid Dopplerdue to his past history ofcarotid occlusion. He does have an appointment withvascular surgeon, Dr. Ching,in the next couple daysfor an evaluation of his leg discomfort he is experiencing. He does have 2 stents in his femoral arteries due to pastocclusions Ordered: Office Visit Level 4 Est 87172 Dyslipidemia Stressed the importance of keeping his cholesterol in good control. He is tolerating his cholesterol-lowering medicine well. Ordered: Office Visit Level 4 Est 05588 Encounter for routine history and physical exam for male Reviewed age and gender appropriate testing. We'll obtain past records from cardiology to see if that he has had an evaluation for aortic aneurysm. He is up-to-date with his vaccinations but may receive a Prevnar 13 at his convenience in the near future. Ordered: Office Visit Level 4 Est 94443 Osteoarthritis His arthritis has been stable. No change in medicines at this time. Ordered: Office Visit Level 4 Est 40926
--- OUTSIDE RECORDS SUMMARY | 2019-03-14 13:53 | XMS REPORT | Referral Summary ---
Author Author [facility] Organization [facility] Address Unknown Phone Unavailable Care Team Providers Care Lathe Tender Name Role Phone Carolina Villalobos PCP Encounter [facility] Date(s): 07/28/15 - 07/28/15 [facility] [id number] [address] Discharge Diagnosis: Neck pain on left side Discharge Diagnosis: Urinary hesitancy Discharge Diagnosis: Hyperlipidemia Discharge Disposition: 01-Home or Self Care Attending Physician: Clara Sotomayor Admitting Physician: Clara Sotomayor Vital Signs Most recent to 1 oldest [Reference Range]: Apical Heart Rate 62 bpm [60-100 bpm] (07/28/15 9:05 AM) Blood Pressure 138/84 mmHg [90-140/60-90 mmHg] (07/28/15 9:05 AM) Problem List Condition Effective Dates Status Health Status Informant Kidney 09/18/10 Active dysfunction(Confirme d) Allergic Active rhinitis(Confirmed) Unspecified Active arthropathy, involving lower leg(Confirmed) Benign essential Active hypertension (disorder)(Confirmed ) Bradycardia(Confirme 09/18/09 Active d) 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/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) Cervical disc Active disease(Confirmed) Coronary Active arteriosclerosis (disorder)(Confirmed ) Coronary Active atherosclerosis of [place] coronary artery(Confirmed) Coronary artery Active disease(Confirmed) Degenerative disk 09/18/12 Active disease, C3-4 on down(Confirmed) Dermatitis(Confirmed Active ) [place](Confirmed) Active Foraminal narrowing 09/18/12 Active C4-5, C5-6, [...] 40 mg 1 tabs, Oral, Daily, # 90 tabs, 0 Refill(s), Pharmacy: [id number], 1 tabs Oral Daily Start Date: 05/04/15 Status: Ordered Flomax 0.4 mg oral capsule See Instructions, 1 CAPS ORAL DAILY,INSTR:30 MINUTES AFTER THE SAME MEAL, # 30 c aps, 3 Refill(s), eRx: [facility] [id number], 1 CAPS ORAL DAILY,INSTR:30 UT NUTES AFTER THE SAME MEAL Start Date: 07/28/15 Status: Ordered gabapentin 300 mg oral capsule 900 mg 3 caps, Oral, Before Breakfast, 0 Refill(s) Start Date: 02/18/14 Status: Ordered lisinopril 40 mg oral tablet 1 tabs, Oral, Daily, # 30 tabs, 0 Refill(s), Pharmacy: [facility] [id number] Start Date: 03/14/14 Status: Ordered Metoprolol Tartrate 25 mg oral tablet 1 tabs, Oral, BID, # 60 tabs, 0 Refill(s) Start Date: 02/18/14 Status: Ordered Plavix 75 mg oral tablet 1 tabs, Oral, Daily, # 30 tabs, 0 Refill(s) Start Date: 02/18/14 Status: Ordered predniSONE 20 mg oral tablet 40 mg 2 tabs, Oral, Daily, X 5 days, # 10 tabs, 0 Refill(s), [facility], 2 tabs Oral Daily,x5 days Start Date: 07/28/15 Stop Date: 08/02/15 Status: Ordered ranitidine 150 mg oral tablet See Instructions, TAKE 1 TABLET BY MOUTH TWICE DAILY, # 180 tabs, eRx: [facility] [id number], TAKE 1 TABLET BY MOUTH TWICE DAILY Start Date: 06/08/15 Status: Ordered traMADol 50 mg oral tablet 50 mg 1 tabs, Oral, q12hr, as needed for pain, # 60 tabs, 5 Refill(s) Start Date: 02/23/15 Status: Ordered Tylenol Extra Strength 500 mg, Oral, q6hr, 0 Refill(s) Start Date: 02/18/14 Status: Ordered Results Chemistry Most recent to 1 oldest [Reference Range]: Sodium Lvl [135-144 141 mEq/L mEq/L] (07/28/15 10:01 AM) Potassium Lvl 4.4 mEq/L [3.5-5.2 mEq/L] (07/28/15 10:01 AM) Chloride [99-111 105 mEq/L mEq/L] (07/28/15 10:01 AM) CO2 [23-31 mEq/L] 27 mEq/L (07/28/15 10:01 AM) AGAP [3-20] 9 (07/28/15 10:01 AM) BUN [8-26 mg/dL] 19 mg/dL (07/28/15 10:01 AM) Glucose Lvl [70-99 98 mg/dL mg/dL] (07/28/15 10:01 AM) Creatinine Lvl 1.27 mg/dL [0.72-1.25 mg/dL] *HI* (07/28/15 10:01 AM) eGFR [>60 mL/min] 56 mL/min 1 *ABN* (07/28/15 10: AM) Calcium Lvl 9.7 mg/dL [8.9-10.5 mg/dL] (07/28/15 10:01 AM) Albumin Lvl [3.4-4.8 4.8 gm/dL gm/dL] (07/28/15 10:01 AM) Total Protein 7.3 gm/dL [6.2-8.1 gm/dL] (07/28/15 10:01 AM) Globulin [1.8-4.0 2.5 gm/dL gm/dL] (07/28/15 10:01 AM) ALT [0-55 U/L] 24 U/L (07/28/15 10:01 AM) AST [5-34 U/L] 25 U/L (07/28/15 10: AM) Alk Phos [40-150 79 U/L U/L] (07/28/15 10: AM) Bili Total [0.2-1.2 0.6 mg/dL mg/dL] (07/28/15 10: AM) Chol [0-199 mg/dL] 157 mg/dL (07/28/15 10: AM) Trig [0-149 mg/dL] 208 mg/dL *HI* (07/28/15: AM) HDL [40-84 mg/dL] 28 mg/dL *LOW* (07/28/15: AM) LDL [0-130 mg/dL] 87 mg/dL (07/28/15 10: AM) VLDL Cholesterol 42 mg/dL [0-28 mg/dL] *HI* (07/28/15 10: AM) Cardiac Risk 5.6 [0.0-5.7] (07/28/15 10:01 AM) 1Result Comment: Multiply eGFR results by 1.21 for race. Urinalysis Most recent to 1 oldest [Reference Range]: UA Color Yellow (07/28/15 9:57 AM) UA Appear Sl Cloudy (07/28/15 9:57 AM) UA pH [5.0-8.0] 5.5 (07/28/15 9:57 AM) UA Leuk Est Negative [Negative] (07/28/15 9:57 AM) UA Nitrite Negative [Negative] (07/28/15 9:57 AM) UA Protein Trace [Negative] *ABN* (07/28/15 9:57 AM) UA Glucose Negative [Negative] (07/28/15 9:57 AM) UA Ketones Negative [Negative] (07/28/15 9:57 AM) UA Urobilinogen 0.2 mg/dL (07/28/15 9:57 AM) UA Bili [Negative] Negative (07/28/15 9:57 AM) UA Blood Trace *ABN* (07/28/15 9:57 AM) UA Spec Grav 1.025 [1.003-1.030] (07/28/15 9:57 AM) Type Clean Catch (07/28/15 9:57 AM) Immunizations Vaccine Date Refusal Reason tetanus/diphth/pertuss (Tdap) [...] Office Visit Note Author: Clara Sotomayor Date: 07/28/15 Assessment/Plan Hyperlipidemia, Hyperlipidemia We'll obtain fasting lipids today since he is fasting. Ordered: Comprehensive Metabolic Panel Lipid Panel Office Visit Level 4 Est 56257 Neck pain on left side, Neck pain on left side Suspect he may have some cervical disc issues concerning to some of these symptoms he is expressing. We'll do a short course of prednisone 40 mg daily for 5 days. We do want to avoid nonsteroidal anti-inflammatories due to his renal status. We'll also obtain a complete blood profile.If his pain does not subside with the medication and the neck x-ray appears normal we'll considerrecheck with cardiology. Ordered: Office Visit Level 4 Est 97038 XR Spine Cervical Minimum 4 Views Urinary hesitancy, Urinary hesitancy Urinalysis will be obtained today. If his urine is clear with no signs of infection we'll do a trial of Flomax. If infection we'll treat appropriately.. Ordered: Office Visit Level 4 Est 80714 Urinalysis with Culture if Indicated Orders: predniSONE, 40 mg 2 tabs, Oral, Daily, X 5 days, # 10 tabs, 0 Refill(s), Pharmacy: [facility] [id number], 2 tabs Oral Daily,x5 days
--- OUTSIDE RECORDS SUMMARY | 2019-03-14 13:53 | XMS REPORT | Referral Summary ---
Author Author [facility] Organization [facility] Address Unknown Phone Unavailable Care Team Providers Care Automotive Service Management Teacher Name Role Phone Carolina Villalobos PCP No PCP, [facility] PCP Encounter [facility] [id number] Date(s): 01/15/18 - 01/15/18 [facility] [id number] [address] Discharge Disposition: 01-Home or Self Care Attending Physician: Carolina Villalobos MD Admitting Physician: Carolina Villalobos MD Vital Signs Most recent to 1 oldest [Reference Range]: Peripheral Pulse 60 bpm Rate [60-100 bpm] (01/15/18 11:40 AM) Blood Pressure 152/78 mmHg [90-140/60-90 mmHg] *HI* (01/15/18 11:40 AM) SpO2 96 % (01/15/18 11:40 AM) Problem List Condition Effective Dates Status Health Status Informant Kidney 09/18/10 Active dysfunction(Confirme d) Allergic Active rhinitis(Confirmed) Unspecified Active arthropathy, involving lower leg(Confirmed) Benign essential Active hypertension (disorder)(Confirmed ) Bicipital tendonitis Active of left shoulder(Confirmed) Bradycardia(Confirme 09/18/09 Active d) 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/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) Cervical disc Active disease(Confirmed) Coronary Active arteriosclerosis (disorder)(Confirmed ) Coronary Active atherosclerosis of [place] coronary artery(Confirmed) Coronary artery Active disease(Confirmed) Degenerative disk 09/18/12 Active disease, C3-4 on down(Confirmed) Dermatitis(Confirmed Active ) [place](Confirmed) Active Foraminal narrowing 09/18/12 Active C4-5, C5-6, [...] TABLET EVERY DAY, # 90 tabs, eRx: [facility], TAKE 1 TABLET EVERY DAY Start Date: 12/06/17 Status: Ordered furosemide 20 mg oral tablet See Instructions, TAKE 1 TABLET EVERY DAY, # 90 tabs, eRx: [facility], TAKE 1 TABLET EVERY DAY Start Date: 12/06/17 Status: Ordered gabapentin 300 mg oral capsule See Instructions, TAKE 3 CAPSULES AT BEDTIME, # 270 caps, eRx: [facility], TAKE 3 CAPSULES [...] TABLETS EVERY DAY, # 180 tabs, eRx: [facility], TAKE 2 TABLETS EVERY DAY Start Date: 12/06/17 Status: Ordered traMADol 50 mg oral tablet 50 mg 1 tabs, Oral, q8hr, as needed for pain, # 30 tabs, 0 Refill(s) Start Date: 01/15/18 Stop Date: 01/16/18 Status: Ordered Tylenol Extra Strength 500 mg, Oral, q6hr, PRN, 0 Refill(s) Start Date: 02/18/14 Status: Ordered Tylenol PM mL, Oral, Bedtime (once a day), 0 Refill(s) Start Date: 02/14/17 Status: Ordered Results Chemistry Most recent to 1 oldest [Reference Range]: Sodium Lvl [135-144 140 mEq/L mEq/L] (01/15/18 12:31 PM) Potassium Lvl 4.5 mEq/L [3.5-5.2 mEq/L] (01/15/18 12:31 PM) Chloride [99-111 106 mEq/L mEq/L] (01/15/18 12:31 PM) CO2 [23-31 mEq/L] 24 mEq/L (01/15/18 12:31 PM) AGAP [3-20 mEq/L] 10 mEq/L (01/15/18 12:31 PM) BUN [8-26 mg/dL] 16 mg/dL (01/15/18 12:31 PM) Glucose Lvl [70-99 116 mg/dL mg/dL] *HI* (01/15/18 12:31 PM) Creatinine Lvl 1.37 mg/dL [0.72-1.25 mg/dL] *HI* (01/15/18 12:31 PM) eGFR [>60 mL/min] 51 mL/min 1 *ABN* (01/15/18 12:31 PM) Calcium Lvl 10.2 mg/dL [8.4-10.2 mg/dL] (01/15/18 12:31 PM) 1Result Comment: Multiply eGFR results by 1.21 for race. Urinalysis Most recent to 1 oldest [Reference Range]: UA Color Yellow (01/15/18 12:08 PM) UA Appear Clear (01/15/18 12:08 PM) UA pH [5.0-8.0] 5.5 (01/15/18 12:08 PM) UA Leuk Est Negative [Negative] (01/15/18 12:08 PM) UA Nitrite Negative [Negative] (01/15/18 12:08 PM) UA Protein Trace [Negative] *ABN* (01/15/18 12:08 PM) UA Glucose Negative [Negative] (01/15/18 12:08 PM) UA Ketones Negative [Negative] (01/15/18 12:08 PM) UA Urobilinogen 0.2 mg/dL [<=1.0 mg/dL] (01/15/18 12:08 PM) UA Bili [Negative] Negative (01/15/18 12:08 PM) UA Blood [Negative] Trace *ABN* (01/15/18 12:08 PM) UA Spec Grav 1.010 [1.003-1.030] (01/15/18 12:08 PM) Type Clean Catch (01/15/18 12:08 PM) Immunizations Given and Recorded Vaccine Date Status [...] SUPERFICIAL FEMORAL ARTERY DR RUFUS BENDER @ [facility] 2STAGE II CLAUDICATION IN THE RIGHT LEG 3auto-populated from documented surgical case 4auto-populated from documented surgical case Social History Social History Type Response Smoking Status Former smoker; Type: Cigarettes1 entered on: 02/18/14 1stopped 25 years ago Assessment and Plan Extracted from: Title: Office Visit Note Author: Carolina Villalobos MD Date: 01/15/18 Acute back pain We will order CT scan to look for evidence of stone giventhe findings of blood onurinalysis. He does have a history of prior kidney stones. He was given a prescription for tramadol to use as needed for pain with a quantity 30. He may require narcotic analgesics if the pain does not improve. We will contact him with test results once availableand make arrangements for further treatment and evaluation Ordered: Basic Metabolic Panel Office Visit Level 3 Est 66144
--- OUTSIDE RECORDS SUMMARY | 2019-03-14 13:53 | XMS REPORT | Referral Summary ---
Author Author [facility] Organization [facility] Address Unknown Phone Unavailable Care Team Providers Care Railroad Police Officer Name Role Phone Carolina Villalobos PCP Encounter VC Date(s): 04/27/16 - 04/27/16 [facility] [address] [place] [address] [phone] Discharge Disposition: 01-Home or Self Care Attending Physician: Major García DO Admitting Physician: Major García DO Vital Signs Most recent to 1 oldest [Reference Range]: Temperature Temporal 36.8 degC Artery [36.3-37.8 (04/27/16 9:15 AM) degC] Peripheral Pulse 70 bpm Rate [60-100 bpm] (04/27/16 9:30 AM) Respiratory Rate 18 br/min (04/27/16 9:43 AM) Blood Pressure 116/60 mmHg [90-140/60-90 mmHg] (04/27/16 9:30 AM) SpO2 96 % (04/27/16 9:30 AM) Problem List Condition Effective Dates Status Health Status Informant Kidney 09/18/10 Active dysfunction(Confirme d) Allergic Active rhinitis(Confirmed) Unspecified Active arthropathy, involving lower leg(Confirmed) Benign essential Active hypertension (disorder)(Confirmed ) Bradycardia(Confirme 09/18/09 Active d) 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/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) Cervical disc Active disease(Confirmed) Coronary Active arteriosclerosis (disorder)(Confirmed ) Coronary Active atherosclerosis of [place] coronary artery(Confirmed) Coronary artery Active disease(Confirmed) Degenerative [...] Refill(s) Start Date: 02/18/14 Status: Ordered atorvastatin 10 mg oral tablet See Instructions, TAKE 1 TABLET BY MOUTH EVERY DAY, # 90 tabs, eRx: [id number], TAKE 1 TABLET BY MOUTH EVERY DAY Start Date: 02/12/16 Status: Ordered Flomax 0.4 mg oral capsule See Instructions, 1 CAPS ORAL DAILY,INSTR:30 MINUTES AFTER THE SAME MEAL, # 30 c aps, 3 Refill(s), eRx: [facility] [id number], 1 CAPS ORAL DAILY,INSTR:30 NE NUTES AFTER THE SAME MEAL Start Date: 07/28/15 Status: Ordered gabapentin 300 mg oral capsule 900 mg 3 caps, Oral, Before Breakfast, 0 Refill(s) Start Date: 02/18/14 Status: Ordered lisinopril 40 mg oral tablet 1 tabs, Oral, Daily, # 30 tabs, 0 Refill(s), Pharmacy: [facility] [id number] 0 Start Date: 03/14/14 Status: Ordered Metoprolol Tartrate 25 mg oral tablet 25 mg 1 tabs, Oral, Daily, # 60 tabs, 0 Refill(s) Start Date: 02/18/14 Status: Ordered Plavix 75 mg oral tablet 75 mg 1 tabs, Oral, Daily, Resume Monday05/01/16, # 30 tabs, 0 Refill(s) Start Date: 02/18/14 Status: Ordered ranitidine 150 mg oral tablet See Instructions, TAKE 1 TABLET BY MOUTH TWICE DAILY, # 180 tabs, 2 Refill(s), e Rx: [id number], TAKE 1 TABLET BY MOUTH TWICE DAILY Start Date: 12/10/15 Status: Ordered traMADol 50 mg oral tablet 50 mg 1 tabs, Oral, q12hr, as needed for pain, # 60 tabs, 0 Refill(s) Start Date: 10/30/15 Status: Ordered Tylenol Extra Strength 500 mg, Oral, q6hr, 0 Refill(s) Start Date: 02/18/14 Status: Ordered Results Hematology Most recent to 1 oldest [Reference Range]: WBC [4.8-10.8 7.7 10*3/uL 10*3/uL] (04/27/16 6:31 AM) RBC [4.60-6.20] 5.22 (04/27/16 6:31 AM) Hgb [14.0-18.0 16.2 gm/dL gm/dL] (04/27/16 6:31 AM) Hct [42.0-52.0 %] 47.2 % (04/27/16 6:31 AM) MCV [82.0-99.0 fL] 90.4 fL (04/27/16 6:31 AM) MCH [27.0-32.0 pg] 31.0 pg (04/27/16 6:31 AM) MCHC [32.0-36.0 34.3 gm/dL gm/dL] (04/27/16 6:31 AM) RDW [11.5-14.5 %] 13.9 % (04/27/16 6:31 AM) Platelet [150-400 241 10*3/uL 10*3/uL] (04/27/16 6:31 AM) MPV [9.4-12.3 fL] 10.7 fL (04/27/16 6:31 AM) Chemistry Most recent to 1 oldest [Reference Range]: Sodium Lvl [136-144 138 mEq/L mEq/L] (04/27/16 6:31 AM) Potassium Lvl 4.5 mEq/L 1 [3.6-5.1 mEq/L] (04/27/16 6:31 AM) Chloride [99-109 106 mEq/L mEq/L] (04/27/16 6:31 AM) CO2 [22-32 mEq/L] 22 mEq/L (04/27/16 6:31 AM) AGAP [3-20] 10 (04/27/16 6:31 AM) BUN [4-20 mg/dL] 18 mg/dL (04/27/16 6:31 AM) Glucose Lvl [70-100 114 mg/dL mg/dL] *HI* (04/27/16:31 AM) Creatinine Lvl 1.34 mg/dL [0.64-1.27 mg/dL] *HI* (04/27/16:31 AM) eGFR [>60] 52 2 *ABN* (04/27/16:31 AM) Calcium Lvl 9.4 mg/dL [8.6-10.0 mg/dL] (04/27/16 6:31 AM) Albumin Lvl [3.5-4.8 4.6 gm/dL gm/dL] (04/27/16 6:31 AM) Total Protein 7.2 gm/dL [6.1-7.9 gm/dL] (04/27/16 6:31 AM) Globulin [1.9-4.3 2.6 gm/dL gm/dL] (04/27/16 6:31 AM) ALT [17-63 U/L] 30 U/L (04/27/16 6:31 AM) AST [15-41 U/L] 37 U/L (04/27/16 6:31 AM) Alk Phos [26-104 61 U/L U/L] (04/27/16 6:31 AM) Bili Total [0.2-1.2 1.4 mg/dL 3 mg/dL] *HI* (04/27/16 6:31 AM) 1Result Comment: Hemolyzed specimen. The following tests may be affected: ALT, AST, Ammonia, Iron, Potassium, LDH, Amylase, CPK, and Total Bilirubin. Pre-op patient accept results as per Tiara Alarcon RN 2Result Comment: Multiply eGFR results by 1.21 for race. 3Result Comment: Naproxen, specifically the metabolite O-desmethylnaproxen, may cause spurious elevation in Total Bilirubin levels. Immunizations Vaccine Date Refusal Reason tetanus/diphth/pertuss (Tdap) [...]
--- OUTSIDE RECORDS SUMMARY | 2019-03-14 13:54 | XMS REPORT | Referral Summary ---
Author Author [facility] Organization [facility] Address Unknown Phone Unavailable Care Team Providers Care Roller Mill Tender Name Role Phone Carolina Villalobos PCP Encounter VC Date(s): 08/19/16 - 08/19/16 [facility] [address] [address] Discharge Diagnosis: Atherosclerotic peripheral vascular disease Discharge Diagnosis: Hyperlipidemia Discharge Disposition: 01-Home or Self Care Attending Physician: Clara Sotomayor Admitting Physician: Clara Sotomayor Vital Signs Most recent to 1 oldest [Reference Range]: Peripheral Pulse 44 bpm Rate [60-100 bpm] *LOW* (08/19/16 8:03 AM) Blood Pressure 120/80 mmHg [90-140/60-90 mmHg] (08/19/16 8:03 AM) SpO2 97 % (08/19/16 8:03 AM) Problem List Condition Effective Dates Status Health Status Informant Kidney 09/18/10 Active dysfunction(Confirme d) Allergic Active rhinitis(Confirmed) Unspecified Active arthropathy, involving lower leg(Confirmed) Benign essential Active hypertension (disorder)(Confirmed ) Bicipital tendonitis Active of left shoulder(Confirmed) Bradycardia(Confirme 09/18/09 Active d) 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/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) Cervical disc Active disease(Confirmed) Coronary Active arteriosclerosis (disorder)(Confirmed ) Coronary Active atherosclerosis of [place] coronary artery(Confirmed) Coronary artery Active disease(Confirmed) Degenerative disk 09/18/12 Active disease, C3-4 on down(Confirmed) Dermatitis(Confirmed Active ) [place](Confirmed) Active Foraminal narrowing 09/18/12 Active C4-5, C5-6, [...] # 90 tabs, 2 Refill(s), eRx : [id number], TAKE 1 TABLET BY MOUTH ONCE DAILY Start Date: 05/09/16 Status: Ordered gabapentin 300 mg oral capsule 900 mg 3 caps, Oral, Before Breakfast, 0 Refill(s) Start Date: 02/18/14 Status: Ordered lisinopril 40 mg oral tablet 1 tabs, Oral, Daily, # 30 tabs, 0 Refill(s), Pharmacy: [id number] 0 Start Date: 03/14/14 Status: Ordered [...] # 180 tabs, 2 Refill(s), e Rx: [facility] [id number], TAKE 1 TABLET BY MOUTH TWICE DAILY Start Date: 12/10/15 Status: Ordered tolterodine 2 mg oral tablet 2 mg 1 tabs, Oral, BID, # 60 tabs, 0 Refill(s), other reason (Rx), TAKE 1 TABLET BY MOUTH TWICE DAILY Start Date: 08/19/16 Status: Ordered Tylenol Extra Strength 500 mg, Oral, q6hr, 0 Refill(s) Start Date: 02/18/14 Status: Ordered Results Chemistry Most recent to 1 oldest [Reference Range]: Sodium Lvl [135-144 142 mEq/L mEq/L] (08/19/16 9:08 AM) Potassium Lvl 5.1 mEq/L [3.5-5.2 mEq/L] (08/19/16 9:08 AM) Chloride [99-111 106 mEq/L mEq/L] (08/19/16 9:08 AM) CO2 [23-31 mEq/L] 26 mEq/L (08/19/16 9:08 AM) AGAP [3-20] 10 (08/19/16 9:08 AM) BUN [8-26 mg/dL] 11 mg/dL (08/19/16 9:08 AM) Glucose Lvl [70-99 103 mg/dL mg/dL] *HI* (08/19/16 9:08 AM) Creatinine Lvl 1.29 mg/dL [0.72-1.25 mg/dL] *HI* (08/19/16 9:08 AM) eGFR [>60 mL/min] 55 mL/min 1 *ABN* (08/19/16 9:08 AM) Calcium Lvl 10.1 mg/dL [8.9-10.5 mg/dL] (08/19/16 9:08 AM) Albumin Lvl [3.4-4.8 4.7 gm/dL gm/dL] (08/19/16 9:08 AM) Total Protein 7.0 gm/dL [6.0-7.6 gm/dL] (08/19/16 9:08 AM) Globulin [1.8-4.0 2.3 gm/dL gm/dL] (08/19/16 9:08 AM) ALT [0-55 U/L] 28 U/L (08/19/16 9:08 AM) AST [5-34 U/L] 24 U/L (08/19/16 9:08 AM) Alk Phos [40-150 73 U/L U/L] (08/19/16 9:08 AM) Bili Total [0.2-1.2 0.7 mg/dL mg/dL] (08/19/16 9:08 AM) PSA (wihout Reflex 1.5 ng/mL 2 Free) [0.0-6.5 (08/19/16 9:08 AM) ng/mL] Chol [0-199 mg/dL] 167 mg/dL (08/19/16 9:08 AM) Trig [0-149 mg/dL] 304 mg/dL *HI* (08/19/16 9:08 AM) HDL [40-84 mg/dL] 33 mg/dL *LOW* (08/19/16 9:08 AM) LDL [0-130 mg/dL] 73 mg/dL (08/19/16 9:08 AM) VLDL Cholesterol 61 mg/dL [0-28 mg/dL] *HI* (08/19/16 9:08 AM) Cardiac Risk 5.1 [0.0-5.7] (08/19/16 9:08 AM) 1Result Comment: Multiply eGFR results by 1.21 for race. 2Result Comment: [facility] PSA Best Practice Guidelines: Age-Adjusted PSA Values by Ethnic Group Age Range Asians - Caucasians Americans 40-49 0-2.0 0-2.0 0-2.5 50-59 0-3.0 0-4.0 0-3.5 60-69 0-4.0 0-4.5 0-4.5 70-79 0-5.0 0-5.5 0-6.5 Urinalysis Most recent to 1 oldest [Reference Range]: UA Color Yellow (08/19/16 9:00 AM) UA Appear Clear (08/19/16 9:00 AM) UA pH [5.0-8.0] 5.5 (08/19/16 9:00 AM) UA Leuk Est Negative [Negative] (08/19/16 9:00 AM) UA Nitrite Negative [Negative] (08/19/16 9:00 AM) UA Protein Negative [Negative] (08/19/16 9:00 AM) UA Glucose Negative [Negative] (08/19/16 9:00 AM) UA Ketones Trace [Negative] *ABN* (08/19/16 9:00 AM) UA Urobilinogen 0.2 mg/dL [<=1.0 mg/dL] (08/19/16 9:00 AM) UA Bili [Negative] Positive *ABN* (08/19/16 9:00 AM) UA Blood [Negative] Negative (08/19/16 9:00 AM) UA Spec Grav 1.025 [1.003-1.030] (08/19/16 9:00 AM) Type Cl Catch (08/19/16 9:00 AM) Immunizations Vaccine Date Refusal Reason tetanus/diphth/pertuss (Tdap) adult/adol 12/29/09 influenza virus vaccine, live 07/15/13 influenza virus vaccine, live 07/03/12 influenza virus vaccine, live 06/24/11 influenza virus vaccine, live 06/10/10 influenza virus vaccine, live 06/05/09 pneumococcal 23-polyvalent vaccine 06/10/10 Procedures Procedure Date Related Diagnosis Body Site Colonoscopy1 04/27/16 Procedure with Anesthesia2 04/27/16 Colonoscopy 02/21/13 Hot Forceps Biopsy 02/21/13 [...] Office Visit Note Author: Clara Sotomayor Date: 08/19/16 Assessment/Plan 1.Hyperlipidemia Patient is fasting. We'll obtain fasting labs today. We discussed the importance of keeping his cholesterol in good control with his history of peripheral vascular disease as well as coronary artery disease. Ordered: Office Visit Level 4 Est 13156 Atherosclerotic peripheral vascular disease Apparently he's had some recent stent placement in the femoral arteries by Dr. Rosalino Ching. Will call for thoserecords. He is on Plavix. Screening for prostate cancer PSA will be obtained today. Ordered: Office Visit Level 4 Est 74664 Prostate Specific Antigen Urinary frequency He is having increased frequency. We'll obtain a urinalysis. We'll do a trial of Detrol if the urine does not reveal any infection. He will let us know next 2-3 weeks what his response is been to the Detrol. We did discuss side effects to the medicine. Ordered: Office Visit Level 4 Est 25052 Prostate Specific Antigen
--- OUTSIDE RECORDS SUMMARY | 2019-03-14 13:54 | XMS REPORT | Referral Summary ---
Author Author [facility] Organization [facility] Address Unknown Phone Unavailable Care Team Providers Care Waterproofer Name Role Phone Carolina Villalobos PCP Encounter VC Date(s): 09/08/17 - 09/08/17 [facility] [address] [place], [place] [address] Discharge Diagnosis: Degenerative arthritis of left knee Discharge Diagnosis: Presence of retained hardware Discharge Disposition: -Home or Self Care Attending Physician: Pankaj Lowry DO Admitting Physician: Pankaj Lowry DO Vital Signs Most recent to 1 oldest [Reference Range]: Respiratory Rate 20 br/min [14-20 br/min] (09/08/17 8:12 AM) Problem List Condition Effective Dates Status Health Status Informant Kidney 09/18/10 Active dysfunction(Confirme d) Allergic Active rhinitis(Confirmed) Unspecified Active arthropathy, involving lower leg(Confirmed) Benign essential Active hypertension (disorder)(Confirmed ) Bicipital tendonitis Active of left shoulder(Confirmed) Bradycardia(Confirme 09/18/09 Active d) 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/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) Cervical disc Active disease(Confirmed) Coronary Active arteriosclerosis (disorder)(Confirmed ) Coronary Active atherosclerosis of [place] coronary artery(Confirmed) Coronary artery Active disease(Confirmed) Degenerative disk 09/18/12 Active disease, C3-4 on down(Confirmed) Dermatitis(Confirmed Active ) [place](Confirmed) Active Foraminal narrowing 09/18/12 Active C4-5, C5-6, [...] TABLET EVERY DAY, # 90 tabs, eRx: [facility] Start Date: 01/23/17 Status: Ordered atorvastatin 40 mg oral tablet See Instructions, TAKE 1 TABLET EVERY DAY, # 90 tabs, 1 Refill(s), eRx: [facility], TAKE 1 TABLET EVERY DAY Start Date: 08/30/17 Status: Ordered clopidogrel 75 mg oral tablet See Instructions, TAKE 1 TABLET EVERY DAY, # 90 tabs, eRx: [facility], TAKE 1 TABLET EVERY DAY Start Date: 06/12/17 Status: Ordered gabapentin 300 mg oral capsule See Instructions, TAKE 3 CAPSULES AT BEDTIME, # 270 caps, 1 Refill(s), eRx: [facility], TAKE 3 CAPSULES AT BEDTIME Start Date: 06/28/17 Status: Ordered Lasix 20 mg oral tablet 20 mg 1 tabs, Oral, Daily, # 90 tabs, 0 Refill(s), [facility], 1 tabs Oral Daily Start Date: 03/07/17 Status: Ordered lisinopril 40 mg oral tablet See Instructions, TAKE 1 TABLET EVERY DAY, # 90 tabs, 1 Refill(s), eRx: [facility], TAKE 1 TABLET EVERY DAY Start Date: 09/04/17 Status: Ordered metoprolol succinate 25 mg oral tablet, extended release 12.5 mg 0.5 tabs, Oral, Daily, # 90 tabs, 1 Refill(s), [facility] Start Date: 02/14/17 Status: Ordered raNITIdine 150 mg oral tablet See Instructions, TAKE 1 TABLET BY MOUTH TWICE DAILY, # 180 tabs, [id number], TAKE 1 TABLET BY MOUTH TWICE DAILY Start Date: 03/17/17 Status: Ordered raNITIdine 150 mg oral tablet See Instructions, TAKE 1 TABLET TWICE DAILY (NEEDS TO KEEP APPOINTMENT ON 7 FOR FUTURE REFILLS), # 180 tabs, eRx: [facility], TAKE 1 TA BLET [...] ago Assessment and Plan Extracted from: Title: Ortho Clinic Visit- [place] Author: Pankaj Lowry DO Date: 09/08/17 * Impression and Plan This note is prepared by Tessie Veliz , acting as medical records specialist for Dr. Pankaj Lowry DO The documentation recorded by the scribe reflects the service I personally performed and the decisions made by me. Diagnosis Degenerative arthritis of left knee ([id number] M17.12, Discharge, Medical). Presence of retained hardware ([id number] Z96.9, Discharge, Medical). Plan: X-rays were reviewed of the left knee. The patient has have moderate arthritic changes at the medial compartment as well as underlying chondrocalcinosis. He does have retained ashleigh at the medial distal femur and proximal tibia. I do not feel that the patient's discomfort is secondary to his retained hardware. I feel his discomfort is secondary to his underlying arthritis. This was discussed in detail with the patient. He does have some discomfort with deep palpation over the retained ashleigh but states that is not the pain that he is experiencing. Ultimately one day patient may need a knee replacement and the retained ashleigh can be removed. I discussed steroid injection with the patient today but states she is not having much discomfort. He is return to activities as tolerated and to follow-up in clinic on an as- needed basis..
--- OUTSIDE RECORDS SUMMARY | 2019-03-14 13:54 | XMS REPORT | Referral Summary ---
Author Author [facility] Organization [facility] Address Unknown Phone Unavailable Care Team Providers Care Stamp Maker Name Role Phone Carolina Villalobos PCP Encounter VC Date(s): 05/06/16 - 05/06/16 [facility] [id number] [address] Discharge Diagnosis: Peripheral vascular disease Discharge Diagnosis: Bicipital tendonitis of left shoulder Discharge Disposition: 01-Home or Self Care Attending Physician: Clara Sotomayor Admitting Physician: Clara Sotomayor Vital Signs Most recent to 1 oldest [Reference Range]: Peripheral Pulse 47 bpm Rate [60-100 bpm] *LOW* (05/06/16 8:48 AM) Blood Pressure 120/60 mmHg [90-140/60-90 mmHg] (05/06/16 8:48 AM) SpO2 97 % (05/06/16 8:48 AM) Problem List Condition Effective Dates Status Health Status Informant Kidney 09/18/10 Active dysfunction(Confirme d) Allergic Active rhinitis(Confirmed) Unspecified Active arthropathy, involving lower leg(Confirmed) Benign essential Active hypertension (disorder)(Confirmed ) Bicipital tendonitis Active of left shoulder(Confirmed) Bradycardia(Confirme 09/18/09 Active d) 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/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) Cervical disc Active disease(Confirmed) Coronary Active arteriosclerosis (disorder)(Confirmed ) Coronary Active atherosclerosis of [place] coronary artery(Confirmed) Coronary artery Active disease(Confirmed) Degenerative disk 09/18/12 Active disease, C3-4 on down(Confirmed) Dermatitis(Confirmed Active ) ND(Confirmed) Active Foraminal narrowing 09/18/12 Active C4-5, C5-6, [...] MOUTH EVERY DAY, # 90 tabs, eRx: [facility] [id number], TAKE 1 TABLET BY MOUTH EVERY DAY Start Date: 02/12/16 Status: Ordered Flomax 0.4 mg oral capsule See Instructions, 1 CAPS ORAL DAILY,INSTR:30 MINUTES AFTER THE SAME MEAL, # 30 c aps, 3 Refill(s), eRx: [facility] [id number], 1 CAPS ORAL DAILY,INSTR:30 ND NUTES AFTER THE SAME MEAL Start Date: 07/28/15 Status: Ordered gabapentin 300 mg oral capsule 900 mg 3 caps, Oral, Before Breakfast, 0 Refill(s) Start Date: 02/18/14 Status: Ordered lisinopril 40 mg oral tablet 1 tabs, Oral, Daily, # 30 tabs, 0 Refill(s), Pharmacy: [facility]77 0 Start Date: 03/14/14 Status: Ordered [...] # 180 tabs, 2 Refill(s), e Rx: [facility] [address]47, TAKE 1 TABLET BY MOUTH TWICE DAILY [...] Office Visit Note Author: Clara Sotomayor Date: 05/06/16 Assessment/Plan Bicipital tendonitis of left shoulder Steroid injectionintramuscular was given today. If this does not give patient of relief we'll consider physical therapy and enterarticular injection. We discussedthe different stepsand processes to do to try to help withbiceps tendinitis. He will avoid activities that he no aggravates the arm. I did give him a handout onthis condition. Ordered: Office Visit Level 3 Est 47272 Peripheral vascular disease We'll refer the patient back to Dr. Rosalino Ching who performed his first vascular surgery was stents. I do suspect that this isperipheral vascular disease with intermittent claudication. Ordered: Office Visit Level 3 Est 61621 Extracted from: Title: Ambulatory Patient Education Author: Clara Sotomayor Date: 05/06/16 Family Medicine Biceps Tendon Tendinitis (Distal) With Rehab Tendinitis involves inflammation and pain over the affected tendon. The distal biceps tendon (near the elbow) is vulnerable to tendinitis. Distal biceps tendonitis is usually due to the bony bump near the elbow (bicipital tuberosity) causing increased friction over the tendon. The biceps tendon attaches the biceps muscle to one bone in the elbow and two in the shoulder. It is important for proper function of the elbow and for turning the palm upward (supination). SYMPTOMS Pain, aching, tenderness, and sometimes warmth or redness over the front of the elbow. Pain when bending the elbow or turning the palm up, using the wrist, especially if performed against resistance. Crackling sound (crepitation) when the tendon or elbow is moved or touched. CAUSES The symptoms of biceps tendonitis are due to inflammation of the tendon. Inflammation may be caused by: Strain from sudden increase in amount or intensity of activity. Direct blow or injury to the elbow (uncommon). Overuse or repetitive elbow bending or wrist rotation, particularly when turning the palm up, or with elbow hyperextension. RISK INCREASES WITH: Sports that involve contact or overhead arm activity (throwing sports, gymnastics, weightlifting, bodybuilding, rock climbing). Heavy labor. Poor strength and flexibility. Failure to warm up properly before activity. Injury to other structures of the elbow. Restraint of the elbow. PREVENTION Warm up and stretch properly before activity. Allow time for recovery between activities. Maintain physical fitness: Strength, flexibility, and endurance. Cardiovascular fitness. Learn and use proper exercise technique. PROGNOSIS With proper treatment, biceps tendon tendonitis is usually curable within 6 weeks. RELATED COMPLICATIONS Longer healing time if not properly treated or if not given enough time to heal. Chronically inflamed tendon that causes persistent pain with activity, that may progress to constant pain and potentially rupture of the tendon. Recurring symptoms, especially if activity is resumed too soon, with overuse or with poor technique. TREATMENT Treatment first involves ice and medicine to reduce pain and inflammation. Modify activities that cause pain, to reduce the chances of causing the condition to get worse. Strengthening and stretching exercises should be performed to promote proper use of the muscles of the elbow. These exercise may be performed at home or with a therapist. Other treatments may be given such as ultrasound or heat therapy. Surgery is usually not recommended. MEDICATION If pain medicine is needed, nonsteroidal anti-inflammatory medicines (aspirin and ibuprofen), or other minor pain relievers (acetaminophen), are often advised. Do not take pain relieving medication for 7 days before surgery. Prescription pain relievers may be given if your caregiver thinks they are needed. Use only as directed and only as much as you need. HEAT AND COLD: Cold treatment (icing) should be applied for 10 to 15 minutes every 2 to 3 hours for inflammation and pain, and immediately after activity that aggravates your symptoms. Use ice packs or an ice massage. Heat treatment may be used before performing stretching and strengthening activities prescribed by your caregiver, physical therapist, or emr trainer. Use a heat pack or a warm water soak. SEEK MEDICAL CARE IF: Symptoms get worse or do not improve in 2 weeks, despite treatment. New, unexplained symptoms develop. (Drugs used in treatment may produce side effects.) EXERCISES RANGE OF MOTION (ROM) AND STRETCHING EXERCISES - Biceps Tendon Tendinitis (Distal) These exercises may help you when beginning to rehabilitate your injury. Your symptoms may go away with or without further involvement from your physician, physical therapist, or emr trainer. While completing these exercises, remember: Restoring tissue flexibility helps normal motion to return to the joints. This allows healthier, less painful movement and activity. An effective stretch should be held for at least 30 seconds. A stretch should never be painful. You should only feel a gentle lengthening or release in the stretched tissue. STRETCH Elbow Flexors Lie on a firm bed or countertop on your back. Be sure that you are in a comfortable position which will allow you to relax your arm muscles. Place a folded towel under your right / left upper arm, so that your elbow and shoulder are at the same height. Extend your arm; your elbow should not rest on the bed or towel. Allow the weight of your hand to straighten your elbow. Keep your arm and chest muscles relaxed. Your box finisher may ask you to increase the intensity of your stretch by adding a small wrist or hand weight. Hold for seconds. You should feel a stretch on the inside of your elbow. Slowly return to the starting position. Repeat times. Complete this exercise times per day. RANGE OF MOTION Supination, Active Stand or sit with your elbows at your side. Bend your right / left elbow to 90 degrees. Turn your palm upward until you feel a gentle stretch on the inside of your forearm. Hold this position for seconds. Slowly release and return to the starting position. Repeat times. Complete this stretch times per day. RANGE OF MOTION Pronation, Active Stand or sit with your elbows at your side. Bend your right / left elbow to 90 degrees. Turn your palm downward until you feel a gentle stretch on the top of your forearm. Hold this position for seconds. Slowly release and return to the starting position. Repeat times. Complete this stretch times per day. STRENGTHENING EXERCISES - Biceps Tendon Tendinitis (Distal) These exercises may help you when beginning to rehabilitate your injury. They may resolve your symptoms with or without further involvement from your physician, physical therapist or emr trainer. While completing these exercises, remember: Muscles can gain both the endurance and the strength needed for everyday activities through controlled exercises. Complete these exercises as instructed by your physician, physical therapist or emr trainer. Increase the resistance and repetitions only as guided. You may experience muscle soreness or fatigue, but the pain or discomfort you are trying to eliminate should never get worse during these exercises. If this pain does get worse, stop and make sure you are following the directions exactly. If the pain is still present after adjustments, discontinue the exercise until you can discuss the trouble with your clinician. STRENGTH - Elbow Flexors, Isometric Stand or sit upright on a firm surface. Place your right / left arm so that your hand is palm-up and at the height of your waist. Place your opposite hand on top of your forearm. Gently push down as your right / left arm resists. Push as hard as you can with both arms without causing any pain or movement at your right / left elbow. Hold this stationary position for seconds. Gradually release the tension in both arms. Allow your muscles to relax completely before repeating. Repeat times. Complete this exercise times per day. STRENGTH Forearm Supinators Sit with your right / left forearm supported on a table, keeping your elbow below shoulder height. Rest your hand over the edge, palm down. Gently patient biller a hammer or a soup ladle. Without moving your elbow, slowly turn your palm and hand upward to a "thumbs-up" position. Hold this position for seconds. Slowly return to the starting position. Repeat times. Complete this exercise times per day. STRENGTH Forearm Pronators Sit with your right / left forearm supported on a table, keeping your elbow below shoulder height. Rest your hand over the edge, palm up. Gently patient biller a hammer or a soup ladle. Without moving your elbow, slowly turn your palm and hand upward to a "thumbs-up" position. Hold this position for seconds. Slowly return to the starting position. Repeat times. Complete this exercise times per day. STRENGTH Elbow Flexors, Supinated With good posture, stand or sit on a firm chair without armrests. Allow your right / left arm to rest at your side with your palm facing forward. Holding a weight, or gripping a rubber exercise band or tubing, bring your hand toward your shoulder. Allow your muscles to control the resistance as your hand returns to your side. Repeat times. Complete this exercise times per day. STRENGTH Elbow Flexors, Neutral With good posture, stand or sit on a firm chair without armrests. Allow your right / left arm to rest at your side with your thumb facing forward. Holding a weight, or gripping a rubber exercise band or tubing, bring your hand toward your shoulder. Allow your muscles to control the resistance as your hand returns to your side. Repeat times. Complete this exercise times per day. This information is not intended to replace advice given to you by your health care provider. Make sure you discuss any questions you have with your health care provider. Document Released: 09/04/2006 Document Revised: 09/25/2015 Document Reviewed: 12/17/2009 ExitCare Patient Information 2016 [employer] [facility]. No follow up information was provided.
--- OUTSIDE RECORDS SUMMARY | 2019-03-14 13:54 | XMS REPORT | Referral Summary ---
Author Author [facility] Organization [facility] Address Unknown Phone Unavailable Care Team Providers Care Senior Boiler Operator Name Role Phone Carolina Villalobos PCP Encounter VC Date(s): 03/30/15 - 03/30/15 [facility] [address] [address] [place] Discharge Disposition: 01-Home or Self Care Attending Physician: Remigio Mesa Admitting Physician: Remigio Mesa Vital Signs No data available for this section Problem List Condition Effective Dates Status Health Status Informant Kidney 09/18/10 Active dysfunction(Confirme d) Allergic Active rhinitis(Confirmed) Unspecified Active arthropathy, involving lower leg(Confirmed) Benign essential Active hypertension (disorder)(Confirmed ) Bradycardia(Confirme 09/18/09 Active d) 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/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) Cervical disc Active disease(Confirmed) Coronary Active arteriosclerosis (disorder)(Confirmed ) Coronary Active atherosclerosis of [place] coronary artery(Confirmed) Coronary artery Active disease(Confirmed) Degenerative [...] DAILY, # 90 tabs, 2 Refill(s), eRx: [facility] [id number], 1 TABS ORAL DAILY Start Date: 08/03/15 Status: Ordered Flomax 0.4 mg oral capsule See Instructions, 1 CAPS ORAL DAILY,INSTR:30 MINUTES AFTER THE SAME MEAL, # 30 c aps, 3 Refill(s), eRx: [facility] 80447, 1 CAPS ORAL DAILY,INSTR:30 MS NUTES AFTER THE SAME MEAL Start Date: 07/28/15 Status: Ordered gabapentin 300 mg oral capsule 900 mg 3 caps, Oral, Before Breakfast, 0 Refill(s) Start Date: 02/18/14 Status: Ordered lisinopril 40 mg oral tablet 1 tabs, Oral, Daily, # 30 tabs, 0 Refill(s), Pharmacy: [facility] 0577 0 Start Date: 03/14/14 Status: Ordered [...] MOUTH TWICE DAILY, # 180 tabs, eRx: [facility] [id number], TAKE 1 TABLET BY MOUTH TWICE DAILY [...] Extracted from: Title: Office Visit Note Author: Remigio Mesa Date: 03/30/15 Assessment/Plan Erythema of skin No signs of outbreak at this time. Instructed/reminded patient on correct application and use of sunscreen. Apply SPF 30 or higher with UVA and UVB protection. Ordered: Office Visit Level 2 New 34115 Excoriations No signs of infection. Ordered: Office Visit Level 2 New 09986
--- OUTSIDE RECORDS SUMMARY | 2019-03-14 13:55 | XMS REPORT | Referral Summary ---
Author Organization Unknown Address Unknown Phone Unavailable Care Team Providers Care Grocery Clerk Selling Name Role Phone Carolina Villalobos PCP Encounter VC Date(s): 01/06/15 - 01/06/15 [facility] [id number] [address] Discharge Diagnosis: Hyperlipidemia Discharge Diagnosis: Dermatitis Discharge Diagnosis: Lumbar pain Discharge Diagnosis: Osteoarthritis Discharge Disposition: Home or Self Care Attending Physician: Clara Sotomayor Admitting Physician: Clara Sotomayor Vital Signs Most recent to 1 oldest [Reference Range]: Apical Heart Rate 49 bpm [60-100 bpm] *LOW* (01/06/15 2:44 PM) Blood Pressure 134/70 mmHg [90-140/60-90 mmHg] (01/06/15 2:44 PM) Problem List Condition Effective Dates Status [...] disk 09/18/12 Active disease, C3-4 on down(Confirmed) WA(Confirmed) Active Foraminal narrowing 09/18/12 Active C4-5, C5-6, C6-7(Confirmed) 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) Disorder of kidney Active and/or ureter (disorder)(Confirmed ) Dyslipidemia(Confirm Active ed) Right hip Active pain(Confirmed) Hyperlipidemia(Confi Active rmed) Anterior 09/18/12 Active osteophytes(Confirme d) Lumbar Active pain(Confirmed) Leg 09/18/08 Active numbness(Confirmed) [...] Status: Ordered atorvastatin 40 mg oral tablet 1 tabs, Oral, Daily, # 30 tabs, 4 Refill(s), Pharmacy: [facility] 0577 0, 1 tabs Oral Daily Start Date: 11/05/14 Status: Ordered gabapentin 300 mg oral capsule 1-2 caps, Oral, TID, 0 Refill(s) Start Date: 02/18/14 Status: Ordered lisinopril 40 mg oral tablet 1 tabs, Oral, Daily, # 30 tabs, 0 Refill(s), Pharmacy: [facility] 0577 0 Start Date: 03/14/14 Status: Ordered Metoprolol Tartrate 25 mg oral tablet 1 tabs, Oral, BID, # 60 tabs, 0 Refill(s) Start Date: 02/18/14 Status: Ordered Plavix 75 mg oral tablet 1 tabs, Oral, Daily, # 30 tabs, 0 Refill(s) Start Date: 02/18/14 Status: Ordered ranitidine 150 mg oral tablet See Instructions, TAKE 1 TABLET BY MOUTH TWICE DAILY, # 180 tabs, HUMERA, [facility], TAKE 1 TABLET BY MOUTH TWICE DAILY Special Instructions: TAKE 1 TABLET BY MOUTH TWICE DAILY Start Date: 12/05/14 Status: Ordered traMADol 50 mg oral tablet 1 tabs, Oral, Daily, as needed for pain, Faxed to [phone], # 90 t abs, 3 Refill(s) Special Instructions: Faxed to [email or web address] Start Date: 11/04/14 Status: Ordered Tylenol Extra Strength 500 mg, [...] Office Visit Note Author: Clara Sotomayor Date: 01/06/15 Assessment/Plan 1.Dermatitis Uncertain of the cause of the dermatitis but suspect that there may be some typical contact issue. He did receive a steroid shot today in the office due to his low back issues. He will let me know if this resolves the rash also. Ordered: Office Visit Level 4 Est 48351 2.Osteoarthritis Encouraged him to be active. I did let him know is okay to occasionally take a nonsteroidal anti-an inflammatory but not on a regular basis due to his Plavix usage as well as his history of renal insufficiency. He will use tramadol for as needed basis, up to 3 and a day.. Ordered: Office Visit Level 4 Est 03273 Hyperlipidemia We'll recheck the patient's lipid panel in the next 1-2 months. We did review with him that he is to be taking the 40 mg dose of atorvastatin. Ordered: Office Visit Level 4 Est 96156 Lumbar pain Shot of Kenalog and Decadron given today. Encouraged him on appropriate stretches and exercises. He will let me know if things do not improve. Ordered: Office Visit Level 4 Est 64470
--- OUTSIDE RECORDS SUMMARY | 2019-03-14 13:55 | XMS REPORT | Referral Summary ---
Author Author [facility] Organization [facility] Address Unknown Phone Unavailable Care Team Providers Care Emergency Services Professional Name Role Phone Carolina Villalobos PCP Encounter VC Date(s): 08/29/17 - 08/29/17 [facility] [address] [address] Discharge Disposition: 01-Home or Self Care Attending Physician: Carolina Villalobos MD Admitting Physician: Carloina Villalobos MD Vital Signs No data available [...] arteriosclerosis (disorder)(Confirmed ) Coronary Active atherosclerosis of [place] coronary artery(Confirmed) Coronary artery Active disease(Confirmed) Degenerative [...] EVERY DAY, # 90 tabs, eRx: [facility] Start Date: 01/23/17 Status: Ordered atorvastatin 40 mg oral tablet 40 mg 1 tabs, Oral, Daily, # 30 tabs, 0 Refill(s), Pharmacy: [facility], PT MUST KEEP APPT ON 08/01/17 FOR FUTURE REFILLS ONLY FILLING FOR #3 0, 1 tabs Oral Daily Start Date: 07/24/17 Status: Ordered clopidogrel 75 mg oral tablet See Instructions, TAKE 1 TABLET EVERY DAY, # 90 tabs, eRx: [facility], TAKE 1 TABLET EVERY DAY Start Date: 06/12/17 Status: Ordered gabapentin 300 mg oral capsule See Instructions, TAKE 3 CAPSULES AT BEDTIME, # 270 caps, 1 Refill(s), eRx: [facility], TAKE 3 CAPSULES AT BEDTIME Start Date: 06/28/17 Status: Ordered Lasix 20 mg oral tablet 20 mg 1 tabs, Oral, Daily, # 90 tabs, 0 Refill(s), Pharmacy: [facility], 1 tabs Oral Daily Start Date: 03/07/17 Status: Ordered lisinopril 40 mg oral tablet See Instructions, TAKE 1 TABLET EVERY DAY, # 90 tabs, eRx: [facility], TAKE 1 TABLET EVERY DAY Start Date: 01/23/17 Status: Ordered metoprolol succinate 25 mg oral tablet, extended release 12.5 mg 0.5 tabs, Oral, Daily, # 90 tabs, 1 Refill(s), Pharmacy: [facility] Start Date: 02/14/17 Status: Ordered raNITIdine 150 mg oral tablet See Instructions, TAKE 1 TABLET BY MOUTH TWICE DAILY, # 180 tabs, eRx: [facility] [id number], TAKE 1 TABLET BY MOUTH TWICE DAILY Start Date: 03/17/17 Status: Ordered raNITIdine 150 mg oral tablet See Instructions, TAKE 1 TABLET TWICE DAILY (NEEDS TO KEEP APPOINTMENT ON 7 FOR FUTURE REFILLS), # 180 tabs, eRx: [facility], TAKE 1 TA BLET [...] 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
--- OUTSIDE RECORDS SUMMARY | 2019-03-14 13:55 | XMS REPORT | Referral Summary ---
Author Author [facility] Organization [facility] Address Unknown Phone Unavailable Care Team Providers Care Dialysis Biomed Technician Name Role Phone Carolina Villalobos PCP Encounter VC Date(s): 02/14/17 - 02/14/17 [facility] [id number] [id number] Discharge Diagnosis: Benign essential hypertension (disorder) Discharge Disposition: 01-Home or Self Care Attending Physician: Clara Sotomayor Admitting Physician: Clara Sotomayor Vital Signs Most recent to 1 oldest [Reference Range]: Peripheral Pulse 60 bpm Rate [60-100 bpm] (02/14/17 3:29 PM) Blood Pressure 140/76 mmHg [90-140/60-90 mmHg] (02/14/17 3:29 PM) SpO2 96 % (02/14/17 3:29 PM) Problem List Condition Effective Dates Status Health Status Informant Kidney 09/18/10 Active dysfunction(Confirme d) Allergic Active rhinitis(Confirmed) Unspecified Active arthropathy, involving lower leg(Confirmed) Benign essential Active hypertension (disorder)(Confirmed ) Bicipital tendonitis Active of left shoulder(Confirmed) Bradycardia(Confirme 09/18/09 Active d) 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/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) Cervical disc Active disease(Confirmed) Coronary Active arteriosclerosis (disorder)(Confirmed ) Coronary Active atherosclerosis of [place] coronary artery(Confirmed) Coronary artery Active disease(Confirmed) Degenerative [...] TABLET EVERY DAY, # 90 tabs, eRx: [facility] Mail Delivery, TAKE 1 TABLET EVERY DAY Start Date: 01/23/17 Status: Ordered atorvastatin 40 mg oral tablet See Instructions, TAKE 1 TABLET EVERY DAY, # 90 tabs, eRx: [facility] Mail Delivery, TAKE 1 TABLET EVERY DAY Start Date: 01/23/17 Status: Ordered clopidogrel 75 mg oral tablet See Instructions, TAKE 1 TABLET EVERY DAY, # 90 tabs, eRx: [facility] Mail Delivery, TAKE 1 TABLET EVERY DAY Start Date: 01/23/17 Status: Ordered gabapentin 300 mg oral capsule See Instructions, TAKE 3 CAPSULES AT BEDTIME, # 180 caps, eRx: [facility] M ail Delivery, TAKE 3 CAPSULES AT BEDTIME Start Date: 01/23/17 Status: Ordered lisinopril 40 mg oral tablet See Instructions, TAKE 1 TABLET EVERY DAY, # 90 tabs, eRx: [facility] Mail Delivery, TAKE 1 TABLET EVERY DAY Start Date: 01/23/17 Status: Ordered metoprolol succinate 25 mg oral tablet, extended release 25 mg 1 tabs, Oral, Daily, # 90 tabs, 1 Refill(s), Pharmacy: [facility] Delivery Start Date: 02/14/17 Status: Ordered metoprolol succinate 25 mg oral tablet, extended release 25 mg 1 tabs, Oral, Daily, # 30 tabs, 0 Refill(s), Pharmacy: [facility] [place] [facility] e [id number] Start Date: 02/14/17 Status: Ordered raNITIdine 150 mg oral tablet 150 mg 1 tabs, Oral, BID, # 180 tabs, 0 Refill(s), Pharmacy: [facility] Delivery, pt needs to keep appt on 02/28/17 [...] SUPERFICIAL FEMORAL ARTERY DR RUFUS BENDER @ [place] [facility] 2STAGE II CLAUDICATION IN THE RIGHT LEG 3auto-populated from documented surgical case 4auto-populated from documented surgical case Social History Social History Type Response Smoking Status Former smoker; Type: Cigarettes1 1stopped 25 years ago Assessment and Plan Extracted from: Title: Office Visit Note Author: Clara Sotomayor Date: 02/14/17 Assessment/Plan 1.Benign essential hypertension (disorder) We discussed the importance of staying on his medication regularly. He was reduced on his metoprolol due to pulses in the 40s. We'll have him restartthe tablets at one a day. He does have a follow-up appointment here in approximately 10 days we'll check to see if the blood pressures come down the pulses hopefully remainingin the 60s. He will come in fasting at that appointment. Discussed relaxation techniques. Ordered: Office Visit Level 3 Est 85351
--- OUTSIDE RECORDS SUMMARY | 2019-03-14 13:55 | XMS REPORT | Referral Summary ---
Author Author [facility] Organization [facility] Address Unknown Phone Unavailable Care Team Providers Care Senior Product Marketing Manager Name Role Phone Carolina Villalobos PCP Encounter VC Date(s): 10/02/17 - 10/02/17 [facility] [id number] [address] Discharge Disposition: 01-Home or Self [...] arteriosclerosis (disorder)(Confirmed ) Coronary Active atherosclerosis of [place] coronary artery(Confirmed) Coronary artery Active disease(Confirmed) Degenerative disk 09/18/12 Active disease, C3-4 on down(Confirmed) Dermatitis(Confirmed Active ) [place](Confirmed) Active Foraminal narrowing 09/18/12 Active C4-5, C5-6, [...] TABLET EVERY DAY, # 90 tabs, eRx: [facility] Mail Delivery, TAKE 1 TABLET EVERY DAY Start Date: 09/20/17 Status: Ordered atorvastatin 40 mg oral tablet See Instructions, TAKE 1 TABLET EVERY DAY, # 90 tabs, 1 Refill(s), eRx: [facility], TAKE 1 TABLET EVERY DAY Start Date: 08/30/17 Status: Ordered clopidogrel 75 mg oral tablet 75 mg 1 tabs, Oral, Daily, # 90 tabs, 0 Refill(s), Pharmacy: [facility] Rosa [facility] Delivery, 1 tabs Oral Daily,x90 days Start Date: 09/20/17 Stop Date: 12/19/17 Status: Ordered Fish Oil 1000 mg oral capsule 1,000 mg 1 caps, Oral, TID, # 90 caps, 0 Refill(s), other reason (Rx) Start Date: 09/21/17 Status: Ordered furosemide 20 mg oral tablet See Instructions, TAKE 1 TABLET EVERY DAY, # 90 tabs, eRx: [facility] Mail Delivery, TAKE 1 TABLET EVERY DAY Start Date: 09/20/17 Status: Ordered gabapentin 300 mg oral capsule See Instructions, TAKE 3 CAPSULES AT BEDTIME, # 270 caps, eRx: [facility] M ail Delivery, TAKE 3 CAPSULES AT BEDTIME Start Date: 09/20/17 Status: Ordered lisinopril 40 mg oral tablet See Instructions, TAKE 1 TABLET EVERY DAY, # 90 tabs, 1 Refill(s), eRx: [facility], TAKE 1 TABLET EVERY DAY Start Date: 09/04/17 Status: Ordered Metoprolol Succinate ER 25 mg oral tablet, extended release See Instructions, TAKE 1 TABLET EVERY DAY, # 90 tabs, eRx: [facility] Mail Delivery, TAKE 1 TABLET EVERY DAY Start Date: 09/20/17 Status: Ordered raNITIdine 150 mg oral tablet 300 mg 2 tabs, Oral, Daily, # 180 tabs, 0 Refill(s), Pharmacy: [facility] M ail Delivery, 2 tabs Oral Daily,x90 days Start Date: 09/20/17 Stop Date: 12/19/17 Status: Ordered testosterone cypionate 200 mg/mL intramuscular solution 150 mg, IntraMuscular, q4wk, # 1 mL, 0 Refill(s), other reason (Rx) Start Date: 09/21/17 Status: Ordered Tylenol Extra Strength 500 mg, [...] SUPERFICIAL FEMORAL ARTERY DR RUFUS BENDER @ [place] [facility] 2STAGE II CLAUDICATION IN THE RIGHT LEG 3auto-populated from documented surgical case 4auto-populated from documented surgical case Social History Social History Type Response Smoking Status Former smoker; Type: Cigarettes1 entered on: 02/18/14 1stopped 25 years ago Assessment and Plan No data available for this section
--- OUTSIDE RECORDS SUMMARY | 2019-03-14 13:55 | XMS REPORT | Referral Summary ---
Author Author [facility] Organization [facility] Address Unknown Phone Unavailable Care Team Providers Care Guard Dance Hall Name Role Phone Carolina Villalobos PCP Encounter VC Date(s): 05/02/17 - 05/02/17 [facility] [phone] [address] Discharge Disposition: 01-Home or [...] arteriosclerosis (disorder)(Confirmed ) Coronary Active atherosclerosis of [place] coronary artery(Confirmed) Coronary artery Active disease(Confirmed) Degenerative [...] TABLET EVERY DAY, # 90 tabs, eRx: [facility] Delivery Start Date: 01/23/17 Status: Ordered atorvastatin 40 mg oral tablet See Instructions, TAKE 1 TABLET EVERY DAY, # 90 tabs, eRx: [facility] Mail Delivery, TAKE 1 TABLET EVERY DAY Start Date: 01/23/17 Status: Ordered clopidogrel 75 mg oral tablet See Instructions, TAKE 1 TABLET EVERY DAY, # 90 tabs, eRx: [facility] Mail Delivery, TAKE 1 TABLET EVERY DAY Start Date: 01/23/17 Status: Ordered gabapentin 300 mg oral capsule See Instructions, TAKE 3 CAPSULES AT BEDTIME, # 180 caps, 1 Refill(s), eRx: [facility] Delivery, TAKE 3 CAPSULES AT BEDTIME Start Date: 04/03/17 Status: Ordered Lasix 20 mg oral tablet 20 mg 1 tabs, Oral, Daily, # 90 tabs, 0 Refill(s), Pharmacy: [facility], 1 tabs Oral Daily Start Date: 03/07/17 Status: Ordered lisinopril 40 mg oral tablet See Instructions, TAKE 1 TABLET EVERY DAY, # 90 tabs, eRx: [facility] Mail Delivery, TAKE 1 TABLET EVERY DAY Start Date: 01/23/17 Status: Ordered metoprolol succinate 25 mg oral tablet, extended release 12.5 mg 0.5 tabs, Oral, Daily, # 90 tabs, 1 Refill(s), Pharmacy: [facility] Mail Delivery Start Date: 02/14/17 Status: Ordered raNITIdine 150 mg oral tablet See Instructions, TAKE 1 TABLET BY MOUTH TWICE DAILY, # 180 tabs, eRx: [facility] [id number], TAKE 1 TABLET BY MOUTH TWICE DAILY [...] SUPERFICIAL FEMORAL ARTERY DR RUFUS BENDER @ [place] [facility] 2STAGE II CLAUDICATION IN THE RIGHT LEG 3auto-populated from documented surgical case 4auto-populated from documented surgical case Social History Social History Type Response Smoking Status Former smoker; Type: Cigarettes1 1stopped 25 years ago Assessment and Plan No data available for this section
--- OUTSIDE RECORDS SUMMARY | 2019-03-14 13:56 | XMS REPORT | Continuity of Care Document ---
Author Author Chuy Villalobos MD [facility] Amb[facility] Address [id number] [place] [address] [place] [address] Phone Care Team Providers Care Registration Officer Name Role Phone Clara Sotomayor PP Unavailable Payers Payer name Insurance type Covered green party ID Authorization(s) Unknown Problems Condition Effective Dates (start - stop) Clinical Status Diabetes Mellitus Type 2, Uncomplicated - *Chronic Hypertension, Benign - *Chronic Screening for malignant neoplasms of the prostate - *Chronic Osteoarthrosis, unspecified whether generalized or localized, involving shoulder region - *Chronic CAD, Unspecified - *Chronic Coronary atherosclerosis of unspecified type of vessel, [place] or graft - *Chronic Peripheral vascular disease, unspecified - *Chronic Pain in joint involving lower leg - *Chronic Mononeuritis of unspecified site - *Chronic Benign essential hypertension - *Chronic Myalgia and myositis, unspecified - *Chronic Other and unspecified hyperlipidemia - *Chronic Benign essential hypertension - *Chronic Long-term (current) use of other medications - *Chronic Other malaise and fatigue - *Chronic Coronary atherosclerosis of unspecified type of vessel, [place] or graft - *Chronic Myalgia and myositis, unspecified - *Chronic Osteoarthrosis, generalized, involving unspecified site - *Chronic Osteoarthrosis, generalized, involving multiple sites - *Chronic Osteoarthrosis, generalized, involving unspecified site - *Chronic Osteoarthritis of both shoulders - *Chronic Hypertension, Benign - *Chronic Diabetes Mellitus Type 2, Uncomplicated - *Chronic BPH - *Chronic Other and unspecified hyperlipidemia - *Chronic Shoulder pain, bilateral - *Chronic Knee joint replacement - *Chronic Other and unspecified disc disorder of cervical region - *Chronic Hypertension, Benign - *Chronic Osteoarthritis, Generalized - *Chronic Other and unspecified hyperlipidemia - *Chronic CAD, [place] Vessel - *Chronic Impaired renal function - *Chronic Bradycardia by electrocardiogram - *Acute Abnormal EKG - *Acute Dizziness - *Acute Other and unspecified hyperlipidemia - *Chronic 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 Other malaise and fatigue - *Chronic Other malaise and fatigue - *Chronic Diarrhea - *Controlled Long-term (current) use of other medications - *Chronic Long-term (current) use of other medications - *Chronic Screening for lipoid disorders - *Chronic Diabetes mellitus without mention of complication, type II or unspecified type, not stated as uncontrolled - *Chronic Diabetes mellitus without mention of complication, type II or unspecified type, not stated as uncontrolled - *Chronic Other and unspecified hyperlipidemia - *Chronic Benign essential hypertension - *Chronic Other and unspecified hyperlipidemia - *Chronic Pain in joint involving lower leg - *Chronic Osteoarthrosis, generalized, involving unspecified site - *Chronic Other malaise and fatigue - *Chronic 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 Diarrhea - *Chronic Long-term (current) use of other medications - *Chronic Other malaise and fatigue - *Chronic Osteoarthrosis, generalized, involving unspecified site - *Chronic Obesity, unspecified - *Chronic Diabetes mellitus without mention of complication, type II or unspecified type, not stated as uncontrolled - *Chronic Diabetes Mellitus Type 2, Uncomplicated - *Chronic Hypertension, Benign - *Chronic Renal Insufficiency, Acute - *Chronic Osteoarthritis, Generalized - *Chronic Fatigue / Malaise - *Chronic Osteoarthrosis, unspecified whether generalized or localized, involving shoulder region - *Chronic Pain in joint involving lower leg - *Chronic Osteoarthrosis, unspecified whether generalized or localized, involving lower leg - *Chronic Diabetes mellitus without mention of complication, type II or unspecified type, not stated as uncontrolled - *Chronic Osteoarthrosis, unspecified whether generalized or localized, involving shoulder region - *Chronic CAD, Unspecified - *Chronic Other and unspecified hyperlipidemia - *Chronic RESTLESS LEGS SYNDROME - *Chronic Disturbance of skin sensation - *Acute Lumbago - *Acute Headache - *Acute Benign essential hypertension - *Chronic 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 Myalgia and myositis, unspecified - *Chronic Pain in joint involving multiple sites - *Chronic Osteoarthrosis, unspecified whether generalized or localized, involving lower leg - *Chronic Osteoarthrosis, unspecified whether generalized or localized, involving shoulder region - *Chronic Cervical disc disease - *Chronic Pain in joint involving lower leg - *Chronic Myalgia and myositis, unspecified - *Chronic Benign essential hypertension - *Chronic Other and unspecified hyperlipidemia - *Chronic Migraine, unspecified without mention of intractable migraine - Improved Coronary atherosclerosis of unspecified type of vessel, [place] or graft - *Chronic Enlarged heart - *Chronic Osteoarthrosis, unspecified whether generalized or localized, involving unspecified site - *Chronic Other malaise and fatigue - *Chronic 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 Dysuria - *Chronic [place] of toe - *Chronic Bilateral shoulder pain - *Chronic Osteoarthritis - *Chronic Knee joint replacement - *Chronic Unspecified disorder of kidney and ureter - *Chronic Anxiety state, unspecified - *Chronic Osteoarthrosis, generalized, involving unspecified site - *Chronic Pain in joint involving multiple sites - *Chronic Degeneration of lumbar or lumbosacral intervertebral disc - *Chronic Osteoarthritis, shoulder - *Chronic Influenza Vaccine - - Pain in joint involving shoulder region - *Chronic Osteoarthrosis, generalized, involving unspecified site - *Chronic Surgical counseling visit - *Chronic CAD (coronary artery disease) - *Chronic Hypertension, Benign - *Chronic Pain in joint involving shoulder region - *Chronic Pain in joint involving multiple sites - *Chronic Myalgia and myositis, unspecified - *Chronic Pain in joint involving lower leg - *Chronic Pain in limb - *Chronic Lumbago - *Chronic Coronary atherosclerosis of [place] coronary artery - *Chronic Benign essential hypertension - *Chronic Other and unspecified hyperlipidemia - *Chronic Obesity, unspecified - *Chronic Unspecified arthropathy involving lower leg - *Chronic Diarrhea - *Acute Pain in joint involving shoulder region - *Chronic Benign essential hypertension - *Chronic Other and unspecified hyperlipidemia - *Chronic Headache - *Acute Other malaise and fatigue - *Chronic Myalgia and myositis, unspecified - *Chronic Arm pain, right - *Acute Family History Family Member Diagnosis Age At Onset Status Family h/o (Unknown) Hypertension Yes Family h/o (Unknown) Diabetes Yes Family h/o (Unknown) Hyperlipidemia Yes Family h/o (Unknown) chronic heart failure Yes Family h/o (Unknown) Heart disease Yes Social History Social History Element Description Quantity Unknown Allergies, Adverse Reactions, Alerts Substance Reaction Severity Status HYDROCHLOROTHIAZIDE Unknown WARNIN allergie(s) could not be collected because the type is not supported. Please contact the source practice for further details. Medications Medication Instructions Dosage Effective Dates (start - stop) Status Tylenol Extra Strength 500 mg tablet take 1 tablet (500MG) by ORAL route every 6 hours as needed 500 MG - Active lisinopril 40 mg tablet take 1 tablet (40MG) by oral route every day 40 MG - Active metoprolol tartrate 25 mg tablet take 1 tablet (25MG) by oral route 2 times every day 25 MG - Active Plavix 75 mg tablet take 1 tablet (75MG) by ORAL route every day 75 MG - Active gabapentin 300 mg capsule take 1 - 2 capsule (300MG) by ORAL route 3 times every day - Active amlodipine 10 mg tablet take 1 tablet (10MG) by ORAL route every day 10 MG - Active take 1 tablet (81MG) by oral route every day 81 MG - Active atorvastatin 20 mg tablet take 0.5 Tablet (10MG) by oral route every day 10 MG - Active ranitidine 150 mg tablet take 1 tablet (150MG) by oral route 2 times every day 150 MG - Active Immunizations Vaccine Date Status Comments flu (split) (3 yrs or older) completed pneumo (2 yrs or older) (PPV23) completed flu (split) (3 yrs or older) completed Tdap completed Flu (split) (3 yrs or older) completed - Completed reason: Adrienne MELENDEZ MA flu (split) (3 yrs or older) completed flu (split) (3 yrs or older) completed - Completed reason: previously given Results Test Name Date and Time Measure Units Reference Range Abnormal Flag Comments Panel Description: CBC WBC 14:03:00 6.6 K/uL 4.8-10.8 RBC 14:03:00 5.40 M/uL 4.60-6.20 HGB 14:03:00 16.0 g/dl 14.0-18.0 HCT 14:03:00 46.9 % 42.0-52.0 MCV 14:03:00 86.9 fL 82.0-99.0 MCH 14:03:00 29.6 pg 27.0-32.0 MCHC 14:03:00 34.1 g/dL 32.0-36.0 RDW 14:03:00 14.1 % 11.5-14.5 MPV 14:03:00 11.6 fL 8.8-14.8 Platelet Count 14:03:00 234 K/uL 150-400 Immature Granulocytes 14:03:00 0.2 % 0.0-1.0 Absolute Neutrophils 14:03:00 3.18 THOUS 1.90-7.00 Absolute Lymphocytes 14:03:00 1.77 THOUS 0.80-3.30 Absolute Monocytes 14:03:00 1.01 THOUS 0.30-1.00 H Absolute Eosinophils 14:03:00 0.55 THOUS 0.00-0.50 H Absolute Basophils 14:03:00 0.13 THOUS 0.00-0.20 Neutrophils 14:03:00 48 % 51-75 L Lymphocytes 14:03:00 27 % 20-46 Monocytes 14:03:00 15 % 4-11 H Eosinophils 14:03:00 8 % 0-4 H Basophils 14:03:00 2 % 0-2 Testing performed at [facility] Reference Lab [address] [place] [address] Travograph Operator Lorenzo Martinez MD Panel Description: Hemoglobin [id number] Hemoglobin A1C 14:03:00 5.6 % 4.1-5.6 Testing performed at [facility] [address] [place] [address] Travograph Operator Lorenzo Martinez MD Panel Description: EAG Calculation-[facility] Estimated Average Glucose 14:03:00 114.0 mg/dL Testing performed at [facility] [address] [place] [address] Travograph Operator Lorenzo Martinez MD Panel Description: Chemistry Profile Glucose 14:03:00 95 mg/dL 70-99 BUN 14:03:00 13 mg/dL 8-26 Creatinine 14:03:00 1.53 mg/dL 0.72-1.25 H Calcium 14:03:00 10.2 mg/dL 8.9-10.5 Sodium 14:03:00 141 mEq/L 135-144 Potassium 14:03:00 4.4 mEq/L 3.5-5.2 Chloride 14:03:00 105 mEq/L 99-111 CO2 14:03:00 24 mEq/L 23-31 Albumin 14:03:00 4.7 g/dL 3.4-4.8 Bilirubin Total 14:03:00 0.9 mg/dL 0.2-1.2 Alkaline Phosphatase 14:03:00 90 U/L 40-150 Protein 14:03:00 7.2 g/dL 6.2-8.1 ALT (SGPT) 14:03:00 25 U/L 0-55 AST (SGOT) 14:03:00 21 U/L 5-34 Anion Gap 14:03:00 12 3-20 Globulin 14:03:00 2.5 g/dL 1.8-4.0 Testing performed at [facility] [address] [place] [address] Travograph Operator Lorenzo Martinez MD Panel Description: Lipid Profile-[facility] Cholesterol 14:03:00 174 mg/dL 0-199 Triglycerides 14:03:00 168 mg/dL 0-149 H HDL Cholesterol 14:03:00 30 mg/dL 40-84 L LDL Cholesterol 14:03:00 110 mg/dL 0-130 VLDL Cholesterol 14:03:00 34 mg/dL 0-28 H Cardiac Risk 14:03:00 5.8 0.0-5.7 H Testing performed at [facility] Reference Lab [address] [place] [address] Travograph Operator Lorenzo Martinez MD Panel Description: Non-HDL Cholesterol-[facility] Non-HDL Cholesterol 14:03:00 144 mg/dL 0-159 Testing performed at [facility] Reference Lab [address] [place] [address] Travograph Operator Lorenzo Martinez MD Panel Description: EGFR-[facility] eGFR 14:03:00 45 mL/min >60 A Multiply eGFR results by 1.21 for race.Testing performed at [facility] Reference Lab [address] [address] Travograph Operator Lorenzo Martinez MD Panel Description: Prostatic Specific Antigen-[facility] PSA 14:03:00 1.7 ng/mL 0.0-4.5 AUA PSA Best Practice Guidelines: Age-Adjusted PSA Values by Ethnic GroupAge Range Asians - Caucasians [id number] 0-2.0 0-2.0 0-2.550-59 0-3.0 0-4.0 0-3.560-69 0-4.0 0-4.5 0-4.570-79 0-5.0 0-5.5 0-6.5Testing performed at [facility] Reference Lab [address] [place], [place] [address] Travograph Operator Lorenzo Martinez MD Vital Signs Date / Time: Height Weight Pulse Rate Blood Pressure Temperature /13:16:00 67.00 in 205.00 lbs 80 /min 130/80 mm[Hg] Procedures Procedure Date Unknown Encounters Encounter Location Date Patient Visit [place] [facility] Visit [facility] Patient [facility] [place] Patient Visit [facility] Patient Visit [facility] [place] [facility] Visit [facility] [place] Patient Visit [facility] [place] Patient Visit [facility] Patient Visit [facility] Patient Visit [facility] [place] Patient Visit [facility] [place] Patient Visit [facility] [place] Patient Visit [facility] Patient Visit [facility] Patient Visit [facility] [place] Patient Visit [facility] Patient Visit [facility] [place] Patient Visit [facility] [place] Patient Visit [facility] Patient Visit [facility] Patient Visit [facility] [place] Patient [facility] [place] [facility] Patient Visit [facility] Patient [facility] Patient [facility] [place] [facility] [place] Patient Visit [facility] [place] Patient Visit [facility] [place] Patient Visit [facility] [place] Patient Visit [facility] [place] Patient Visit [facility] [place] Patient Visit [facility] [place] Patient Visit [place] [facility] Advance Directives Directive Effective Date Unknown
--- OUTSIDE RECORDS SUMMARY | 2019-03-14 13:57 | XMS REPORT | Continuity of Care Document ---
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 1.41 mg/dL 0.72-1.25 Globulin 2.6 g/dL 1.8-4.0 Glucose 107 mg/dL 70-99 Potassium 4.8 mEq/L 3.5-5.2 Protein 7.2 g/dL 6.0-7.6 Sodium 140 mEq/L 135-144 Lipid Panel - 09/08/17 09:14 Cardiac Risk 7.2 0.0-5.7 Cholesterol 179 mg/dL 0-199 HDL Cholesterol 25 mg/dL 40-84 LDL Cholesterol 95 mg/dL 0-130 Triglycerides 293 mg/dL 0-149 VLDL Cholesterol 59 mg/dL 0-28 eGFR - 09/08/17 09:14 eGFR 49 mL/min >60 CBC With Platelet and Differential - 09/08/17 09:14 Absolute Basophils 0.08 10*3/uL 0.00-0.20 Absolute Eosinophils 0.61 10*3/uL 0.00-0.50 Absolute Lymphocytes 2.03 10*3/uL 0.80-3.30 Absolute Monocytes 0.68 10*3/uL 0.30-1.00 Absolute Neutrophils 3.05 10*3/uL 1.90-7.00 Basophils 1 % 0-2 Eosinophils 9 % 0-4 HCT 52.0 % 42.0-52.0 HGB 17.5 g/dL 14.0-18.0 Immature Granulocytes 0.2 % 0.0-1.0 Lymphocytes 31 % 20-46 MCH 31.0 pg 27.0-32.0 MCHC 33.7 g/dL 32.0-36.0 MCV 92.0 fL 82.0-99.0 Monocytes 11 % 4-11 MPV 10.9 fL 8.8-14.8 Neutrophils 47 % 51-75 Platelet Count 244 K/uL 150-400 RBC 5.65 10*6/uL 4.60-6.20 RDW 15.1 % 11.5-14.5 WBC 6.5 K/uL 4.8-10.8 Hemoglobin A1C - 09/08/17 09:14 Hemoglobin A1C 6.2 % 4.1-5.6 Estimated Average Glucose - 09/08/17 09:14 Estimated Average Glucose 131.2 mg/dL Testosterone, Free and Total - 09/08/17 09:14 Testosterone, Total 773 ng/dL 240-950 Urinalysis with reflex microscopic - 01/15/18 12:08 Appearance Clear NA Bilirubin Negative NA Negative Blood Trace NA Negative Color Yellow NA Glucose, Urine Negative NA Negative Ketones Negative NA Negative Leukocyte Esterase Negative NA Negative Nitrites Negative NA Negative pH 5.5 NA 5.0-8.0 Protein Trace NA Negative Specific [place] 1.010 NA 1.003-1.030 UA Collection type Clean Catch NA Urobilinogen 0.2 mg/dL <=1.0 Basic Metabolic Panel (BMP) - 01/15/18 12:31 Anion Gap 10 mEq/L 3-20 BUN 16 mg/dL 8-26 Calcium 10.2 mg/dL 8.4-10.2 Chloride 106 mEq/L 99-111 CO2 24 mEq/L 23-31 Creatinine 1.37 mg/dL 0.72-1.25 Glucose 116 mg/dL 70-99 Potassium 4.5 mEq/L 3.5-5.2 Sodium 140 mEq/L 135-144 eGFR - 01/15/18 12:31 eGFR 51 mL/min >60 CBC With Platelet and Differential - 03/19/18 08:57 Absolute Basophils 0.06 10*3/uL 0.00-0.20 Absolute Eosinophils 0.41 10*3/uL 0.00-0.50 Absolute Lymphocytes 1.67 10*3/uL 0.80-3.30 Absolute Monocytes 0.66 10*3/uL 0.30-1.00 Absolute Neutrophils 1.94 10*3/uL 1.90-7.00 Basophils 1 % 0-2 Eosinophils 9 % 0-4 HCT 47.9 % 42.0-52.0 HGB 15.5 g/dL 14.0-18.0 Immature Granulocytes 0.2 % 0.0-1.0 Lymphocytes 35 % 20-46 MCH 30.8 pg 27.0-32.0 MCHC 32.4 g/dL 32.0-36.0 MCV 95.0 fL 82.0-99.0 Monocytes 14 % 4-11 MPV 10.8 fL 8.8-14.8 Neutrophils 41 % 51-75 Nucleated RBC Automated 0.0 /100 WBC Platelet Count 205 K/uL 150-400 RBC 5.04 10*6/uL 4.60-6.20 RDW 13.6 % 11.5-14.5 WBC 4.8 K/uL 4.8-10.8 Hemoglobin A1C - 03/19/18 08:57 Hemoglobin A1C 6.2 % 4.1-5.6 Estimated Average Glucose - 03/19/18 08:57 Estimated Average Glucose 131.2 mg/dL Comprehensive Metabolic Panel (CMP) - 03/19/18 08:57 Albumin 4.6 g/dL 3.4-4.8 Alkaline Phosphatase 68 U/L 40-150 ALT (SGPT) 19 U/L 0-55 Anion Gap 6 mEq/L 3-20 AST (SGOT) 16 U/L 5-34 Bilirubin Total 0.5 mg/dL 0.2-1.2 BUN 18 mg/dL 8-26 Calcium 9.8 mg/dL 8.4-10.2 Chloride 109 mEq/L 99-111 CO2 26 mEq/L 23-31 Creatinine 1.18 mg/dL 0.72-1.25 Globulin 1.7 g/dL 1.8-4.0 Glucose 102 mg/dL 70-99 Potassium 4.9 mEq/L 3.5-5.2 Protein 6.3 g/dL 6.0-7.6 Sodium 141 mEq/L 135-144 Lipid Panel - 03/19/18 08:57 Cardiac Risk 6.8 0.0-5.7 Cholesterol 184 mg/dL 0-199 HDL Cholesterol 27 mg/dL 40-84 LDL Cholesterol 89 mg/dL 0-130 Triglycerides 338 mg/dL 0-149 VLDL Cholesterol 68 mg/dL 0-28 Magnesium - 03/19/18 08:57 Magnesium 2.4 mg/dL 1.6-2.6 eGFR - 03/19/18 08:57 eGFR >60 mL/min >60 TSH - 03/19/18 08:57 TSH 2.10 uIU/mL 0.35-4.94 CBC With Platelet No Differential - 04/12/18 15:40 HCT 46.5 % 42.0-52.0 HGB 15.3 g/dL 14.0-18.0 MCH 31.5 pg 27.0-32.0 MCHC 32.9 g/dL 32.0-36.0 MCV 95.9 fL 82.0-99.0 MPV 11.1 fL 8.8-14.8 Platelet Count 235 K/uL 150-400 RBC 4.85 10*6/uL 4.60-6.20 RDW 14.2 % 11.5-14.5 WBC 7.4 K/uL 4.8-10.8 Comprehensive Metabolic Panel (CMP) - 04/12/18 15:40 Albumin 4.8 g/dL 3.4-4.8 Alkaline Phosphatase 63 U/L 40-150 ALT (SGPT) 30 U/L 0-55 Anion Gap 8 mEq/L 3-20 AST (SGOT) 22 U/L 5-34 Bilirubin Total 0.7 mg/dL 0.2-1.2 BUN 19 mg/dL 8-26 Calcium 10.0 mg/dL 8.4-10.2 Chloride 108 mEq/L 99-111 CO2 27 mEq/L 23-31 Creatinine 1.63 mg/dL 0.72-1.25 Globulin 2.7 g/dL 1.8-4.0 Glucose 83 mg/dL 70-99 Potassium 4.6 mEq/L 3.5-5.2 Protein 7.5 g/dL 6.0-7.6 Sodium 143 mEq/L 135-144 eGFR - 04/12/18 15:40 eGFR 42 mL/min >60 Protime (INR) - 04/12/18 15:40 INR 1.0 NA 0.9-1.2 Basic Metabolic Panel (BMP) - 04/16/18 11:36 Anion Gap 5 mEq/L 3-20 BUN 17 mg/dL 8-26 Calcium 10.1 mg/dL 8.4-10.2 Chloride 107 mEq/L 99-111 CO2 30 mEq/L 23-31 Creatinine 1.48 mg/dL 0.72-1.25 Glucose 115 mg/dL 70-99 Potassium 4.7 mEq/L 3.5-5.2 Sodium 142 mEq/L 135-144 eGFR - 04/16/18 11:36 eGFR 47 mL/min >60 Basic Metabolic Panel (BMP) - 05/22/18 14:43 Anion Gap 10 mEq/L 3-20 BUN 19 mg/dL 8-26 Calcium 10.4 mg/dL 8.4-10.2 Chloride 106 mEq/L 99-111 CO2 24 mEq/L 23-31 Creatinine 1.51 mg/dL 0.72-1.25 Glucose 90 mg/dL 70-99 Potassium 4.9 mEq/L 3.5-5.2 Sodium 140 mEq/L 135-144 eGFR - 05/22/18 14:43 eGFR 45 mL/min >60 eGFR - 06/21/18 13:09 eGFR 50 mL/min >60 Comprehensive Metabolic Panel (CMP) - 06/21/18 13:09 Albumin 4.9 g/dL 3.4-4.8 Alkaline Phosphatase 72 U/L 40-150 ALT (SGPT) 43 U/L 0-55 Anion Gap 7 mEq/L 3-20 AST (SGOT) 33 U/L 5-34 Bilirubin Total 1.0 mg/dL 0.2-1.2 BUN 17 mg/dL 8-26 Calcium 10.4 mg/dL 8.4-10.2 Chloride 103 mEq/L 99-111 CO2 28 mEq/L 23-31 Creatinine 1.40 mg/dL 0.72-1.25 Globulin 2.6 g/dL 1.8-4.0 Glucose 99 mg/dL 70-99 Potassium 4.7 mEq/L 3.5-5.2 Protein 7.5 g/dL 6.0-7.6 Sodium 138 mEq/L 135-144 Lipid Panel - 06/21/18 13:09 Cardiac Risk 7.3 0.0-5.7 Cholesterol 198 mg/dL 0-199 HDL Cholesterol 27 mg/dL 40-84 LDL Cholesterol INVALID mg/dL 0-130 Triglycerides 441 mg/dL 0-149 VLDL Cholesterol INVALID mg/dL 0-28 Hemoglobin A1C - 06/21/18 13:09 Hemoglobin A1C 5.7 % 4.1-5.6 Estimated Average Glucose - 06/21/18 13:09 Estimated Average Glucose 116.9 mg/dL CBC With Platelet and Differential - 10/22/18 09:02 Absolute Basophils 0.10 10*3/uL 0.00-0.20 Absolute Eosinophils 0.51 10*3/uL 0.00-0.50 Absolute Lymphocytes 2.02 10*3/uL 0.80-3.30 Absolute Monocytes 0.71 10*3/uL 0.30-1.00 Absolute Neutrophils 2.60 10*3/uL 1.90-7.00 Basophils 2 % 0-2 Eosinophils 9 % 0-4 HCT 50.7 % 42.0-52.0 HGB 16.9 g/dL 14.0-18.0 Immature Granulocytes 0.2 % 0.0-1.0 Lymphocytes 34 % 20-46 MCH 30.9 pg 27.0-32.0 MCHC 33.3 g/dL 32.0-36.0 MCV 92.7 fL 82.0-99.0 Monocytes 12 % 4-11 MPV 10.6 fL 8.8-14.8 Neutrophils 44 % 51-75 Nucleated RBC Automated 0.0 /100 WBC Platelet Count 240 K/uL 150-400 RBC 5.47 10*6/uL 4.60-6.20 RDW 13.5 % 11.5-14.5 WBC 6.0 K/uL 4.8-10.8 Hemoglobin A1C - 10/22/18 09:02 Hemoglobin A1C 6.0 % 4.1-5.6 Estimated Average Glucose - 10/22/18 09:02 Estimated Average Glucose 125.5 mg/dL Comprehensive Metabolic Panel (CMP) - 10/22/18 09:02 Albumin 4.8 g/dL 3.4-4.8 Alkaline Phosphatase 70 U/L 40-150 ALT (SGPT) 35 U/L 0-55 Anion Gap 9 mEq/L 3-20 AST (SGOT) 20 U/L 5-34 Bilirubin Total 1.0 mg/dL 0.2-1.2 BUN 21 mg/dL 8-26 Calcium 10.4 mg/dL 8.4-10.2 Chloride 104 mEq/L 99-111 CO2 27 mEq/L 23-31 Creatinine 1.38 mg/dL 0.72-1.25 Globulin 2.6 g/dL 1.8-4.0 Glucose 98 mg/dL 70-99 Potassium 4.7 mEq/L 3.5-5.2 Protein 7.4 g/dL 6.0-7.6 Sodium 140 mEq/L 135-144 Lipid Panel - 10/22/18 09:02 Cardiac Risk 6.9 0.0-5.7 Cholesterol 186 mg/dL 0-199 HDL Cholesterol 27 mg/dL 40-84 LDL Cholesterol 92 mg/dL 0-130 Triglycerides 335 mg/dL 0-149 VLDL Cholesterol 67 mg/dL 0-28 eGFR - 10/22/18 09:02 eGFR 50 mL/min >60 Testosterone, Free and Total - 10/22/18 09:02 Testosterone, Free 5.52 ng/dL Testosterone, Total 178 ng/dL 240-950 Radiology Report from [id number] on 03/22/2013 15:22:00 Final ReportADMITTING DIAGNOSIS: short of breath; CP lt shoulder painCHEST PA LAT - 03/22/2013 [facility] RESULT: INDICATION: Left shoulder painEXAMINATION: Chest PA and lateral 03/22/2013 12:59 p.m.FINDINGS: Cardiomegaly. Slight prominence of the superiormediastinum could be fat, could be mass. It is difficult to seeboth diaphragms on the PA view but on the lateral bothdiaphragms are normal. There are no abnormalities. The lungfields and vascularity is normal. The trachea is in the midline.IMPRESSION: 1. Cardiomegaly. The heart appears larger than it was asmediastinum is larger.2. Comparing it to the 2003 exam, the heart was normal. Themediastinum was minimally prominent. Part of the problem todaymay be that it is an AP film which magnifies it, and that thereis a prominent pericardial fat pad on the left. This also ismaking it look larger.Dictated on workstation # [id number] BY: RIVERA PHAM M.D., RADIOLOGISTELECTRONICALLY SIGNED BY: RIVERA PHAM M.D., RADIOLOGISTD Mar 22 2013 1:03PT BOOGIE: Mar 22 2013 3:20PS Mar 22 2013 3:20P Radiology Report from [id number] on 03/22/2013 16:06:00 Final ReportADMITTING DIAGNOSIS: short of breath; CP lt shoulder painSHOULDER COMPLETE 2+VWS LT - 03/22/2013 [facility] RESULT: INDICATION: Left shoulder painAP, oblique, and lateral views of the left shoulder areobtained.No fracture or acute bony abnormality is seen. There is nodislocation.IMPRESSION: Negative left shoulder.Dictated on workstation # [id number] BY: ALEXANDRA AMAYA M.D., RADIOLOGISTELECTRONICALLY SIGNED BY: ALEXANDRA AMAYA M.D., RADIOLOGISTD Mar 22 2013 1:11PT BOOGIE: Mar 22 2013 4:04PS Mar 22 2013 4:04P Radiology Report from [id number] on 05/17/2013 15:51:00 Final ReportADMITTING DIAGNOSIS: SOB; dizziness DIZZYCHEST PORTABLE SINGLE VIEW - 05/17/2013 [facility] RESULT: INDICATION: Dizzy.EXAMINATION: Chest, AP upright portable, 05/17/2013 at 2:18 p.m.,single view.FINDINGS: Heart, considering this is an AP view, is withinnormal limits, minimally top normal. Lung garcía, vascularity,pleura, and trachea are normal. Comparing to March 2013, theheart was slightly prominent then and it is stable.IMPRESSION: Slight prominence of the heart, otherwise normalchest.Dictated on workstation # [id number] BY: RIVERA PHAM M.D., RADIOLOGISTELECTRONICALLY SIGNED BY: RIVERA PHAM M.D., RADIOLOGISTD May 17 2013 2:51PT AS6: May 17 2013 3:49PS May 17 2013 3:49P Radiology Report from [id number] on 08/01/2017 11:23:00 Reason For ExamPain in joint, kneeREPORTINDICATION: Pain to the medial aspect of the left knee.COMPARISON STUDY: None.FINDINGS: Three views of the left knee demonstrate a staple in the medialfemoral condyle. There is loosening around the superior portion of this. Thereis also a staple just below the lateral tibial plateau. One end of the staple isoutside of the osseous structures and into the soft tissues. Surgical clips seenposterior medial near the subcutaneous tissues. Arteriosclerosis is present.Joint space narrowing is present in the medial compartment. Chondrocalcinosis ispresent. Osteophytes are also present in the patellofemoral compartment.IMPRESSION:1. 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 Loosening of the hardware is present as above.Dictated on workstation:[id number] Line PRELIMINARY DICTATED BY: JORGE FIELDS MDDICTATED DT/TM: 08/01/2017 11:17 Radiology Report from [id number] on 01/16/2018 16:34:00 Reason For ExamOther, (Free text in Reason for Exam field)REPORTPROCEDURE: CT Renal Colic.TECHNIQUE: Multiple contiguous axial images were obtained through the abdomenand pelvis without the use of intravenous contrast.INDICATION: Renal colic. Hematuria. 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 There are no renal, ureteral or bladder calculi.There is no hydronephrosis. Renal outlines are smooth. No perinephric fluid.There is a cyst off the upper pole left kidney which is changed very little whencompared with 2011 exam. Hypodense lesion inferiorly in the right lobe of theliver also is stable. Gallbladder is normal. Pancreas and spleen are normal.Adrenal glands are normal. Bowel gas pattern is normal. Bilateral renal stentsare again noted.IMPRESSION:1. No evidence of renal calculi or obstruction.2. Small cyst upper pole left kidney changing very little. Also a cyst in theinferior portion right lobe of the liver has changed very little.Dictated on workstation:[id number] Line PRELIMINARY DICTATED BY: MARLO VALDEZ MDDICTATED DT/TM: 01/16/2018 2:17 Encounters ACCT No. Visit Date/Time Discharge Status Pt. Type Provider Facility Loc./Unit Complaint [id number] 12/18/2018 12:13:00 12/18/2018 23:59:00 DIS Outpatient Ivan Brennan Via [facility] TCPA 4 [facility] BABITA [id number] 10/22/2018 08:55:00 10/22/2018 23:59:00 DIS Outpatient Clara Sotomayor Via [facility] W Lab lab [id number] 08/28/2018 10:16:00 08/28/2018 23:59:00 DIS Outpatient Clara Sotomayor Via [facility] W [facility] [place] [id number] 06/21/2018 13:00:00 06/21/2018 23:59:00 DIS Outpatient Clara Sotomayor Via [facility] W21 Lab lab [id number] 05/29/2018 13:05:00 05/29/2018 23:59:59 CLS Outpatient Madan Orona Via [facility] FOLLOW UP VISIT [id number] 05/29/2018 13:04:00 05/29/2018 23:59:59 CLS Outpatient Ivan Brennan [facility] FOLLOW UP VISIT [id number] 05/22/2018 13:11:00 05/22/2018 23:59:00 DIS Outpatient Wusterbarth, Clara E [facility] W21 IM POST HOSP VCSF HEART BLOCKAGE [id number] 04/16/2018 10:38:00 04/16/2018 23:59:00 DIS Outpatient Carolina Villalobos Via [facility] W21 IM LAB WORK --WAS TO BE IN SURGERY TODAY BUT KIDNEY COUNT WAS [id number] 04/12/2018 15:32:00 04/12/2018 23:59:00 DIS Outpatient Madan Orona Via [facility] Mur Lab Lab [id number] 04/05/2018 10:55:00 04/05/2018 23:59:00 DIS Outpatient Madan Orona Via [facility] Mur Card HC consult Mika [id number] 04/04/2018 09:01:00 04/04/2018 23:59:00 DIS Outpatient Ivan Brennan [facility] Mur Card stress test results [id number] 04/03/2018 08:11:00 04/03/2018 23:59:00 DIS Outpatient Ivan Brennan [facility] Mur Card TTM I25.10 165CM 92KG HUMANA MIKA [id number] 04/03/2018 07:19:00 04/03/2018 23:59:00 DIS Outpatient Mika Ivan Via [facility] Mur Card TTM I25.10 165CM 92KG HUMANA MIKA [id number] 03/27/2018 11:12:00 03/27/2018 23:59:00 DIS Outpatient Ivan Brennan Via [facility] Mur Card NPV CAD PCD [id number] 03/19/2018 07:25:00 03/19/2018 23:59:00 DIS Outpatient Clara Sotomayor Via [facility] W21 IM med chk rck fasting labs [id number] 01/16/2018 13:25:00 01/16/2018 23:59:00 DIS Outpatient Carolina Villalobos Via [facility] FC Rad ACUTE BACK PAIN/HEMATURIA [id number] 01/15/2018 11:37:00 01/15/2018 23:59:00 DIS Outpatient Carolina Villalobos Via [facility] W21 IM kidney stones [id number] 01/12/2018 15:15:00 01/12/2018 23:59:00 DIS Outpatient Don Villalobosmie L [address] [place] [address] IM BACK PAIN [id number] 11/27/2017 10:38:00 11/27/2017 23:59:00 DIS Outpatient Wilfredo, Carolina L [address] [place] [address] IM TEST INJ [id number] 10/30/2017 09:49:00 10/30/2017 23:59:00 DIS Outpatient Wilfredo Carolina L [address] [place] [address] IM TEST INJ [id number] 10/02/2017 08:48:00 10/02/2017 23:59:00 DIS Outpatient Wilfredo, Carolina L [address] [place] [address] IM test [id number] 09/08/2017 09:05:00 09/08/2017 23:59:00 DIS Outpatient Clara Sotomayor [address] [place] [address] Lab LAB [id number] 09/08/2017 08:01:00 09/08/2017 23:59:00 DIS Outpatient Lowry Christopher Via [facility] Ortho LT KNEE [id number] 08/29/2017 09:40:00 08/29/2017 23:59:00 DIS Outpatient Don Villalobosmie L [address] [place] [id number] IM TEST INJ [id number] 08/01/2017 09:00:00 08/01/2017 23:59:00 DIS Outpatient Clara Sotomayor [address] [place] [address] IM CPE [id number] 07/04/2017 13:44:00 07/04/2017 23:59:00 DIS Outpatient Don Villalobosmie L [address] [place] [address] IM TEST. [id number] 06/19/2017 09:13:00 06/19/2017 23:59:00 DIS Outpatient Clara Sotomayor [address] [place] [address] Lab lab [id number] 06/05/2017 09:43:00 06/05/2017 23:59:00 DIS Outpatient Wilfredo Carolina L [address] [place] [address] IM TEST INJ [id number] 05/02/2017 08:38:00 05/02/2017 23:59:00 DIS Outpatient Carolina Villalobos [address] [place] [address] IM testosterone [id number] 03/28/2017 10:39:00 03/28/2017 23:59:00 DIS Outpatient Clara Sotomayor [address] [place] [address] IM DISCUSS LABS [id number] 03/07/2017 10:14:00 03/07/2017 23:59:00 DIS Outpatient Clara Sotomayor [address] [place] [address] IM BABITA BP [id number] 02/14/2017 15:07:00 02/14/2017 23:59:00 DIS Outpatient Clara Sotomayor [facility] [place] [address] IM 6MO MED CK [id number] 08/19/2016 07:32:00 08/19/2016 23:59:00 DIS Outpatient Clara Sotomayor [address] [place] [address] IM STOMACH ISSUES [id number] 05/16/2016 07:52:00 05/16/2016 23:59:59 CLS Outpatient Clara Sotomayor [address] [place] [address] IM CPE FASTING LAB PVQ [id number] 05/06/2016 08:42:00 05/06/2016 23:59:00 DIS Outpatient Clara Sotomayor [address] [place] [address] IM TCPA LT SHOULDER PAIN WANTS INJ [id number] 07/28/2015 08:47:00 07/28/2015 23:59:00 DIS Outpatient Clara Sotomayor [address] [place] [address] IM HUANG SHOT LT SHOULDER [id number] 03/30/2015 14:09:00 03/30/2015 23:59:00 DIS Outpatient Remigio Mesa Aneudy [address] [place] [address] DERM NTY; DERMATITIS CHEMICAL EXPOSURE [id number] 12/19/2018 05:17:44 Document Registration [id number] 11/06/2018 05:19:02 Document Registration [id number] 09/21/2018 05:20:34 Document Registration [id number] 06/27/2018 05:18:13 Document Registration [id number] 05/30/2018 05:18:55 Document Registration [id number] 05/23/2018 05:22:40 Document Registration [id number] 03/31/2018 05:18:06 Document Registration [id number] 03/28/2018 05:17:39 Document Registration [id number] 03/21/2018 05:18:28 Document Registration [id number] 03/20/2018 05:18:15 Document Registration [id number] 03/17/2018 05:18:15 Document Registration [id number] 01/16/2018 05:18:30 Document Registration [id number] 01/13/2018 05:17:18 Document Registration [id number] 12/07/2017 05:18:01 Document Registration [id number] 11/28/2017 05:18:21 Document Registration [id number] 10/31/2017 05:18:36 Document Registration [id number] 10/03/2017 05:18:27 Document Registration [id number] 09/22/2017 05:18:45 Document Registration [id number] 09/21/2017 05:17:59 Document Registration [id number] 08/31/2017 05:18:14 Document Registration [id number] 08/30/2017 05:19:16 Document Registration [id number] 08/02/2017 05:17:21 Document Registration [id number] 07/25/2017 05:17:38 Document Registration [id number] 07/05/2017 05:18:22 Document Registration [id number] 06/13/2017 05:18:15 Document Registration [id number] 03/05/2015 08:51:00 Document Registration [id number] 02/23/2015 10:14:00 Document Registration [id number] 01/06/2015 14:06:00 Document Registration [id number] 11/04/2014 08:45:00 Document Registration [id number] 10/25/2013 13:16:00 10/25/2013 23:59:59 CLS Outpatient [id number] 05/17/2013 18:01:00 05/18/2013 20:02:00 DIS Outpatient Brennan Moore MD [facility] on [address] [id number] 05/17/2013 14:23:00 05/17/2013 17:00:00 DIS Emergency Kaushik BECKER, Abhijit Via [facility] TERM [id number] 04/05/2013 10:02:00 04/05/2013 23:59:59 CLS Outpatient Clara West Via [facility] TOP [id number] 03/22/2013 11:18:00 03/22/2013 13:45:00 DIS Emergency Sloane Mcdonald MD Via [facility] TERM [id number] 02/21/2013 06:57:00 02/21/2013 10:44:00 DIS Outpatient Major García DO Via [facility]
--- NOTE | 2019-03-14 14:28 | ED Fall/Injury ---
General Chief Complaint: Facial Problems Stated Complaint: FALL Nursing Triage Note: PT AMBULATES TO ER WITH GRAND-DAUGHTER TO RM 9. REFERRED FROM THE [facility] D/T FALL AT 1130. STATES HE FELL ON A CONCRETE CURB. HAS ABRASIONS TO LEFT SIDE OF FACE ABOVE EYEBROW AND LIP. DENIES ANY PAIN AT THIS TIME. Source: patient Exam Limitations: no limitations History of Present Illness Date Seen by Provider: Mar 14, 2019 Time Seen by Provider: 14:05 Initial Comments Here with report of fall today. States that he stepped off a curb and didn't realize that it was there. That caused him to trip and fall. He did land on his face and complains of left cheek and left forehead pain. Does have abrasions in those areas with some swelling on the forehead and bruising. Patient is on Plavix. Denies loss of consciousness. Does have injury from previous fall to the right hand but that was x-rayed and denies any new pain there. Denies other concerns except for that he really wants to get to his granddaughter's baseball game at 5:30. Sent here from the clinic due to being on Plavix. He normally res ides in [place] and is just here visiting. Occurred: this morning (11:30 AM) Severity: moderate Injuries/Pain Location: head, face Context: lost balance, tripped Loss of Consciousness: no loss of consciousness Associated Symptoms (Fall): No Confusion, No Headache, No Muscle Spasms, No Neck Pain, No Shortness of Air, No Trouble Walking Allergies and Home Medications Patient Home Medication List Home Medication List Reviewed: Yes Review of Systems Review of Systems Constitutional: see HPI; No chills, No fever Eyes: No Symptoms Reported Ears, Nose, Mouth, Throat: see HPI, mouth pain; denies loose teeth Respiratory: no symptoms reported Cardiovascular: no symptoms reported Gastrointestinal: no symptoms reported Musculoskeletal: see HPI Skin: change in color, lesions Psychiatric/Neurological: No Symptoms Reported Past Hyritjo-Zstral-Zxzawz Hx Past Med/Social Hx: Reviewed Nursing Past Med/Soc Hx Patient Social History Alcohol Use: Past History Recreational Drug Use: No Smoking Status: Former Smoker Recent Foreign Travel: No Contact w/Someone Who Travel: No Recent Infectious Disease Expo: No Past Medical History Surgeries: Yes CABG, Orthopedic Respiratory: No Cardiac: Yes High Cholesterol, Hypertension Neurological: No Genitourinary: No Gastrointestinal: Yes Gastroesophageal Reflux Family Medical History No Pertinent Family Hx Physical Exam Vital Signs Vital Signs - First Documented 03/14/19 14:06 Temp 98.2 Pulse 69 Resp 18 B/P (MAP) 160/88 (112) Pulse Ox 96 O2 Delivery Room Air Capillary Refill : Less Than 3 Seconds Height, Weight, BMI Height: 5'5.00" Weight: 203lbs. oz. [id number]; BMI Method:Stated General Appearance: WD/WN, no apparent distress HEENT: PERRL/EOMI, pharynx normal, other (abrasion to the left forehead above the left brow and to the left cheek and near her nose on the left side.) Neck: non-tender, full range of motion, supple, normal inspection Cardiovascular: regular rate, rhythm, no murmur Respiratory: lungs clear, normal breath sounds Back: normal inspection, no CVA tenderness, no vertebral tenderness Extremities: normal range of motion, swelling (right hand) Skin: warm/dry, ecchymosis, other (abrasions as listed above plus left forearm.) Rosalind Coma Score Best Eye Response: (4) Open Spontaneously Best Verbal Response: (5) Oriented Best Motor Response: (6) Obeys Commands Progress/Results/Core Measures Results/Orders My Orders Orders - JOSE RAMON CONTRERAS MD Ct Head/Face/Cervical Wo (03/14/19 14:11) Vital Signs/I&O 03/14/19 14:06 Temp 98.2 Pulse 69 Resp 18 B/P (MAP) 160/88 (112) Pulse Ox 96 O2 Delivery Room Air Blood Pressure Mean: 112 Progress Progress Note : Progress Note Seen and evaluated. CT head, face and C-spine ordered. Tetanus is up-to-date. Wounds cleaned and dressed by nursing. 1504: No acute findings on CT. Discharged home with return precautions. Patient verbalize understanding instructions and agreement with plan. Diagnostic Imaging Diagonstic Imaging: CT Plain Films/CT/US/NM/MRI: facial bones, c-spine, head Comments [facility]. [place], [place] NAME: JUMAALEXANDRA Chuy RAMIREZ REC#: [id number] PT STATUS: REG ER : 1945 PHYSICIAN: JOSE RAMON CONTRERAS MD ADMIT DATE: 03/14/19/ER Draft Date of Exam:03/14/19 CT HEAD/FACE/CERVICAL WO PROCEDURE: CT head, face, and cervical spine without contrast. TECHNIQUE: Multiple contiguous axial images were obtained through the head, neck, and facial bones without the use of intravenous contrast. Sagittal and coronal reformations through the cervical spine and facial bones were also performed. Auto Exposure Controls were utilized during the CT exam to meet ALARA standards for radiation dose reduction. INDICATION: Fall hitting the left side of the face. CT HEAD: The ventricles and sulci are within normal limits for the patient's age. No sulcal effacement, midline shift or hemorrhage is detected. Cisterns are patent. Visualized paranasal sinuses are clear. Impression: No acute intracranial process is detected. CT CERVICAL SPINE: There is straightening of the normal cervical lordotic curvature. Minimal anterolisthesis of C2 on C3 is seen. Severe degenerative disc disease from the C2-3 through C6-7 level as noted with significant disc space narrowing and marginal osteophyte formation. No fractures are identified. Prevertebral tissues are within normal limits. Odontoid is intact. IMPRESSION: Severe cervical spondylosis. No acute bony abnormality is detected. CT FACE: The mandible is intact. Slight metatarsus are intact. The maxillary sinus huang and orbital huang appear intact. No nasal bone fracture is seen. Both globes are unremarkable. IMPRESSION: No facial bone fracture is detected. Dictated on workstation # [id number] Dict: 03/14/19 1440 Trans: 03/14/19 1449 [facility] [id number] Interpreted by: DELGADO MILLER MD Electronically signed by: Departure Impression Primary Impression: Head injury Qualified Codes: S09.90XA - Unspecified injury of head, initial encounter Additional Impressions: Contusion of face Qualified Codes: S00.83XA - Contusion of other part of head, initial encounter Abrasion of face and extremities Qualified Codes: S00.81XA - Abrasion of other part of head, initial enc ounter; S40.812A - Abrasion of left upper arm, initial encounter; S80.812A - Abrasion, left lower leg, initial encounter Disposition: 01 HOME, SELF-CARE Condition: Stable Departure-Patient Inst. Decision time for Depature: 14:42 Referrals: NO,LOCAL PHYSICIAN (PCP) Primary Care Physician Patient Instructions: Closed Head Injury (DC), Skin Abrasions (DC), Contusion (DC) Add. Discharge Instructions: All discharge instructions reviewed with patient and/or family. Voiced understanding. Keep wounds clean. You may use anabolic wound and dressing over the wounds twice daily as needed to prevent infection. You may do this for the next several days and then as needed. It is okay to shower but do not soak wounds in any body of water. Return for worsening, fever, vomiting, weakness, breathing problems or other concerns as needed. JOSE RAMON CONTRERAS MD Mar 14, 2019 14:28
--- NOTE | 2019-03-14 14:49 | Diagnostic Imaging Report ---
PROCEDURE: CT head, face, and cervical spine without contrast. TECHNIQUE: Multiple contiguous axial images were obtained through the head, neck, and facial bones without the use of intravenous contrast. Sagittal and coronal reformations through the cervical spine and facial bones were also performed. Auto Exposure Controls were utilized during the CT exam to meet ALARA standards for radiation dose reduction. INDICATION: Fall hitting the left side of the face. CT HEAD: The ventricles and sulci are within normal limits for the patient's age. No sulcal effacement, midline shift or hemorrhage is detected. Cisterns are patent. Visualized paranasal sinuses are clear. Impression: No acute intracranial process is detected. CT CERVICAL SPINE: There is straightening of the normal cervical lordotic curvature. Minimal anterolisthesis of C2 on C3 is seen. Severe degenerative disc disease from the C2-3 through C6-7 level as noted with significant disc space narrowing and marginal osteophyte formation. No fractures are identified. Prevertebral tissues are within normal limits. Odontoid is intact. IMPRESSION: Severe cervical spondylosis. No acute bony abnormality is detected. CT FACE: The mandible is intact. Slight metatarsus are intact. The maxillary sinus huang and orbital huang appear intact. No nasal bone fracture is seen. Both globes are unremarkable. IMPRESSION: No facial bone fracture is detected. Dictated by: Dictated on workstation # [id number]
[2019-03-14 15:15] VITALS: BP 165/93
== END | disposition home or self-care (01) ==
LOC: ER 13:44
DX: S09.90XA Unspecified injury of head, initial encounter (principal); S00.83XA Contusion of other part of head, initial encounter; S40.812A Abrasion of left upper arm, initial encounter; S80.812A Abrasion, left lower leg, initial encounter; I10 Essential (primary) hypertension; E78.00 Pure hypercholesterolemia, unspecified; K21.9 Gastro-esophageal reflux disease without esophagitis; R40.2142 Coma scale, eyes open, spontaneous, at arrival to emergency department; R40.2252 Coma scale, best verbal response, oriented, at arrival to emergency department; R40.2362 Coma scale, best motor response, obeys commands, at arrival to emergency department; Z95.1 Presence of aortocoronary bypass graft; Z79.02 Long term (current) use of antithrombotics/antiplatelets; Z87.891 Personal history of nicotine dependence; W01.0XXA Fall on same level from slipping, tripping and stumbling without subsequent striking against object, initial encounter
CPT/HCPCS: 70450; 70486; 72125